=== PATIENT | female | born 1940 | race Caucasian/White ===

== ENCOUNTER → 2017-05-03 | Outpatient (CLI) | payer OTHER, MEDICAID ==
[~2017-05-03] MED LIST: ASPI-630 PO; CITA40TA5 PO; DONE10TA7 PO; LEVO75TA PO; OXYB5TAB7 PO; PANT40TA5 PO; TOLT4CAP PO
--- NOTE | 2017-05-03 13:47 | RAD ---
Three-view right shoulder radiographs to include AP and lateral radiographs of the right humerus 05/03/2017 Clinical history: Right shoulder and arm pain post fall earlier today. AP internal and external rotation and transscapular digital radiographs of the right shoulder were obtained. AP and two lateral digital radiographs of the right humerus were obtained. An acute comminuted, transverse fracture of the right humeral neck is seen. The alignment of the fracture fragments is near-anatomic. No additional fracture is seen. No dislocation is noted Impression: An acute comminuted fracture of the right humeral neck.
== END | disposition home or self-care (01) ==
LOC: DXRADRC 12:42
PROVIDERS: ATTEND Physician Assistant
DX: S42.321A Displaced transverse fracture of shaft of humerus, right arm, initial encounter for closed fracture (principal); W19.XXXA Unspecified fall, initial encounter; Y93.89 Activity, other specified; Y92.89 Other specified places as the place of occurrence of the external cause; Y99.8 Other external cause status
CPT/HCPCS: 73030; 73060

== ENCOUNTER 2018-02-12 13:27 | Observation (INO) | payer OTHER, MEDICAID ==
[~2018-02-12] VITALS: Ht 157.5 cm; Wt 54.0 kg
--- NOTE | 2018-02-12 14:03 | EKG ---
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
[2018-02-12 14:21] LABS: BARBITURATES NEG (NEG); BENZODIAZEPINES NEG (NEG); CANNABINOIDS NEG (NEG); COCAINE NEG (NEG); METHADONE NEG (NEG); OPIATES NEG (NEG); PHENCYCLIDINE NEG (NEG)
[2018-02-12 14:22] LABS: AMPHETAMINE/METHAMPHETAMINE NEG (NEG)
[2018-02-12 14:39] LABS: BASO % 1 % (0-3); EOS # 0.2 x10^3/uL (0.0-0.7); EOS % 4 % (0-3); HEMATOCRIT 35.5 % (36.0-47.0); LYMPH # 1.3 x10^3/uL (1.0-4.8); LYMPH % 26 % (24-48); MEAN CORPUSCULAR HEMOGLOBIN 36 pg (25-35); MEAN CORPUSCULAR HGB CONC 34 g/dL (31-37); MEAN CORPUSCULAR VOLUME 106 fL (79-100); MONO # 0.6 x10^3/uL (0.0-1.1); MONO % 11 % (0-9); NEUT # 3.1 x10^3uL (1.8-7.7); NEUT % 59 % (31-73); PLATELET COUNT 322 x10^3/uL (140-400); RED BLOOD COUNT 3.33 x10^6/uL (3.50-5.40); RED CELL DISTRIBUTION WIDTH 13.7 % (11.5-14.5); WHITE BLOOD COUNT 5.2 x10^3/uL (4.0-11.0)
[2018-02-12 14:52] LABS: ALBUMIN 3.8 g/dL (3.4-5.0); CALCIUM 9.1 mg/dL (8.5-10.1); CREATININE 0.9 mg/dL (0.6-1.0); MAGNESIUM 2.2 mg/dL (1.8-2.4); POTASSIUM 3.5 mmol/L (3.5-5.1); TOTAL BILIRUBIN 0.3 mg/dL (0.2-1.0); TOTAL PROTEIN 7.8 g/dL (6.4-8.2)
[2018-02-12 16:12] LABS: BILIRUBIN,URINE NEG (NEG); CLARITY,URINE HAZY; COLOR,URINE YELLOW; GLUCOSE,URINE NEG (NEG); UROBILINOGEN,URINE 0.2 mg/dL (0.2 mg/dL)
[2018-02-12 16:13] LABS: NITRITE,URINE POS (NEG)
[2018-02-12 16:14] LABS: BACTERIA,URINE MANY /HPF (0-FEW); SQUAMOUS EPITHELIAL CELL,UR FEW /LPF
[2018-02-12] MEDS ORDERED: CEPHALEXIN 250 MG CAPSULE PO ONE (16:45)
--- NOTE | 2018-02-12 16:50 | ED.ADGEN ---
Past History Past Medical History: Hypothyroid, TIA, UTI Past Surgical History: Tubal ligation, Other Alcohol Use: None Drug Use: None Adult General Chief Complaint Chief Complaint Medical screening exam for psychiatric admission HPI HPI Patient is a 77-year-old female with history of dementia who presents with HI, SI from PCPs office. Patient has been having symptoms, increased physical activity, working out at the gym. OF harming spouse, no specific plan to kill self. No drugs or alcohol. No recent medication changes. History is limited due to patient's memory loss. Additional history obtained from PCPs office and the patient's spouse.[] Review of Systems Review of Systems Review symptoms as per history of present illness. All other review symptoms are negative. All other systems were reviewed and found to be within normal limits, except as documented in this note. Current Medications Current Medications Current Medications Medications (Trade) Dose Ordered Sig/Kevin Start Time Stop Time Status Last Admin Dose Admin Cephalexin HCl (Keflex) 500 mg 1X ONCE 02/12/18 16:45 02/12/18 16:46 DC 02/12/18 16:59 500 MG Allergies Allergies Allergies Coded Allergies Type Severity Reaction Last Updated Verified No Known Drug Allergies 02/12/18 No Physical Exam Physical Exam Constitutional: Well developed, well nourished, no acute distress, non-toxic appearance. [] HENT: Normocephalic, atraumatic, bilateral external ears normal, oropharynx moist, no oral exudates, nose normal. [] Eyes: PERRLA, EOMI, conjunctiva normal, no discharge. [] Neck: Normal range of motion, no tenderness, supple, no stridor. [] Cardiovascular:Heart rate regular rhythm, no murmur [] Lungs & Thorax: Bilateral breath sounds clear to auscultation [] Abdomen: Bowel sounds normal, soft, no tenderness, no masses, no pulsatile masses. [] Skin: Warm, dry[] Back: No tenderness, no CVA tenderness. [] Extremities: No tenderness, no cyanosis, no clubbing, ROM intact, no edema. [] Neurologic: Alert and oriented person, normal motor function, normal sensory function, no focal deficits noted. [] Psychologic: Affect , positive SI, HI. [] Current Patient Data Vital Signs Vital Signs Date Time Temp Pulse Resp B/P (MAP) Pulse Ox O2 Delivery O2 Flow Rate FiO2 02/12/18 15:51 77 16 160/71 (100) 98 02/12/18 13:55 98.2 Room Air Lab Results Laboratory Tests Test 02/12/18 13:53 02/12/18 14:19 02/12/18 15:47 Urine Opiates Screen Neg (NEG) Urine Methadone Screen Neg (NEG) Urine Barbiturates Neg (NEG) Urine Phencyclidine Screen Neg (NEG) Urine Amphetamine/Methamphetamine Neg (NEG) Urine Benzodiazepines Screen Neg (NEG) Urine Cocaine Screen Neg (NEG) Urine Cannabinoids Screen Neg (NEG) Urine Ethyl Alcohol Neg (NEG) White Blood Count 5.2 x10^3/uL (4.0-11.0) Red Blood Count 3.33 x10^6/uL (3.50-5.40) L Hemoglobin 12.0 g/dL (12.0-15.5) Hematocrit 35.5 % (36.0-47.0) L Mean Corpuscular Volume 106 fL (79-100) H Mean Corpuscular Hemoglobin 36 pg (25-35) H Mean Corpuscular Hemoglobin Concent 34 g/dL (31-37) Red Cell Distribution Width 13.7 % (11.5-14.5) Platelet Count 322 x10^3/uL (140-400) Neutrophils (%) (Auto) 59 % (31-73) Lymphocytes (%) (Auto) 26 % (24-48) Monocytes (%) (Auto) 11 % (0-9) H Eosinophils (%) (Auto) 4 % (0-3) H Basophils (%) (Auto) 1 % (0-3) Neutrophils # (Auto) 3.1 x10^3uL (1.8-7.7) Lymphocytes # (Auto) 1.3 x10^3/uL (1.0-4.8) Monocytes # (Auto) 0.6 x10^3/uL (0.0-1.1) Eosinophils # (Auto) 0.2 x10^3/uL (0.0-0.7) Basophils # (Auto) 0.0 x10^3/uL (0.0-0.2) Sodium Level 141 mmol/L (136-145) Potassium Level 3.5 mmol/L (3.5-5.1) Chloride Level 104 mmol/L (98-107) Carbon Dioxide Level 30 mmol/L (21-32) Anion Gap 7 (6-14) Blood Urea Nitrogen 13 mg/dL (7-20) Creatinine 0.9 mg/dL (0.6-1.0) Estimated GFR (Cockcroft-Gault) 61.0 BUN/Creatinine Ratio 14 (6-20) Glucose Level 104 mg/dL (70-99) H Calcium Level 9.1 mg/dL (8.5-10.1) Magnesium Level 2.2 mg/dL (1.8-2.4) Total Bilirubin 0.3 mg/dL (0.2-1.0) Aspartate Amino Transferase (AST) 19 U/L (15-37) Alanine Aminotransferase (ALT) 24 U/L (14-59) Alkaline Phosphatase 63 U/L (46-116) Total Protein 7.8 g/dL (6.4-8.2) Albumin 3.8 g/dL (3.4-5.0) Albumin/Globulin Ratio 1.0 (1.0-1.7) Ethyl Alcohol Level < 10 mg/dL (0-10) Urine Collection Type Unknown Urine Color Yellow Urine Clarity Hazy Urine pH 6.0 Urine Specific [place] 1.010 Urine Protein Neg (NEG-TRACE) Urine Glucose (UA) Neg mg/dL (NEG) Urine Ketones (Stick) Neg mg/dL (NEG) Urine Blood Small (NEG) Urine Nitrite Pos (NEG) Urine Bilirubin Neg (NEG) Urine Urobilinogen Dipstick 0.2 mg/dL (0.2 mg/dL) Urine Leukocyte Esterase Small (NEG) Urine RBC 1-2 /HPF (0-2) Urine WBC 5-10 /HPF (0-4) Urine Squamous Epithelial Cells Few /LPF Urine Bacteria Many /HPF (0-FEW) EKG EKG [EKG: Reviewed] Radiology/Procedures Radiology/Procedures [] Course & Med Decision Making Course & Med Decision Making Pertinent Labs and Imaging studies reviewed. (See chart for details) [Patient medically cleared. Psych recommendations are for inpatient hospitalization. Disposition pending at time of shift change. [facility] Final Impression Final Impression [1. Medical screening evaluation for psychiatric hold 2. UTI] Dragon Disclaimer Dragon Disclaimer This electronic medical record was generated, in whole or in part, using a voice recognition dictation system. ABHIJIT WELCH DO Feb 12, 2018 16:50
[2018-02-12] MEDS ORDERED: ONDANSETRON PF 4 MG/2 ML VIAL. IV PRN (21:15)
[2018-02-12] MEDS ORDERED: ACETAMINOPHEN 325 MG TABLET PO PRN (21:15)
[2018-02-12 22:15] VITALS: BP 173/79
[2018-02-12] MEDS ORDERED: ATOR10TA60 PO (22:24)
[2018-02-12] MEDS ORDERED: DONE10TA14 PO (22:24)
[2018-02-12] MEDS ORDERED: DONEPEZIL HCL 10 MG TABLET PO SCH (23:00)
[2018-02-12] MEDS ORDERED: ATORVASTATIN CALCIUM 10 MG TABLET. PO SCH (23:00)
[2018-02-13 05:32] VITALS: BP 147/73
[2018-02-13] MEDS ORDERED: LEVOTHYROXINE 75 MCG TABLET PO SCH (07:30)
[2018-02-13 08:01] LABS: BASO % 1 % (0-3); EOS # 0.2 x10^3/uL (0.0-0.7); EOS % 4 % (0-3); HEMATOCRIT 33.9 % (36.0-47.0); HEMOGLOBIN 11.5 g/dL (12.0-15.5); LYMPH # 1.5 x10^3/uL (1.0-4.8); LYMPH % 33 % (24-48); MEAN CORPUSCULAR HEMOGLOBIN 36 pg (25-35); MEAN CORPUSCULAR HGB CONC 34 g/dL (31-37); MEAN CORPUSCULAR VOLUME 105 fL (79-100); MONO # 0.6 x10^3/uL (0.0-1.1); MONO % 13 % (0-9); NEUT # 2.2 x10^3uL (1.8-7.7); NEUT % 49 % (31-73); PLATELET COUNT 320 x10^3/uL (140-400); RED BLOOD COUNT 3.23 x10^6/uL (3.50-5.40); RED CELL DISTRIBUTION WIDTH 13.7 % (11.5-14.5); WHITE BLOOD COUNT 4.6 x10^3/uL (4.0-11.0)
[2018-02-13 08:11] LABS: CALCIUM 8.9 mg/dL (8.5-10.1); CREATININE 0.8 mg/dL (0.6-1.0); GFR 69.9; POTASSIUM 4.5 mmol/L (3.5-5.1)
[2018-02-13] MEDS: CEPHALEXIN 250 MG CAPSULE PO SCH ×2 (08:54→14:34)
[2018-02-13] MEDS: OXYBUTYNIN CHLORIDE 5 MG TABLET PO SCH ×2 (08:54→14:34)
[2018-02-13] MEDS ORDERED: LACTOBACILLUS RHAMNOSUS GG 1 CAPSULE. PO SCH (09:00)
[2018-02-13] MEDS ORDERED: ASPIRIN 81 MG TAB.CHEW PO SCH (09:00)
--- NOTE | 2018-02-13 11:13 | PDOC ---
Exam Note: Nawaf Note: Please also refer to the separate dictated note~for this date of service dictated separately.~Patient seen individually. Discussed the patient with Nursing staff reviewed the chart.~Reviewed interim history and current functioning. Reviewed vital signs,~Labs/ Radiology~and current medications noted below. Continue current treatment with the changes noted in the dictated addendum note Assessment: Vital Signs: Vital Signs Date Time Temp Pulse Resp B/P (MAP) Pulse Ox O2 Delivery O2 Flow Rate FiO2 02/13/18 05:32 97.8 80 18 147/73 (97) 98 Room Air I&O Intake and Output 02/13/18 07:00 Intake Total 280 ml Balance 280 ml Intake Oral 280 ml # Voids 2 Labs: Laboratory Tests Test 02/12/18 13:53 02/12/18 14:19 02/12/18 15:47 02/13/18 07:50 Urine Opiates Screen Neg (NEG) Urine Methadone Screen Neg (NEG) Urine Barbiturates Neg (NEG) Urine Phencyclidine Screen Neg (NEG) Urine Amphetamine/Methamphetamine Neg (NEG) Urine Benzodiazepines Screen Neg (NEG) Urine Cocaine Screen Neg (NEG) Urine Cannabinoids Screen Neg (NEG) Urine Ethyl Alcohol Neg (NEG) White Blood Count 5.2 x10^3/uL (4.0-11.0) 4.6 x10^3/uL (4.0-11.0) Red Blood Count 3.33 x10^6/uL (3.50-5.40) L 3.23 x10^6/uL (3.50-5.40) L Hemoglobin 12.0 g/dL (12.0-15.5) 11.5 g/dL (12.0-15.5) L Hematocrit 35.5 % (36.0-47.0) L 33.9 % (36.0-47.0) L Mean Corpuscular Volume 106 fL (79-100) H 105 fL (79-100) H Mean Corpuscular Hemoglobin 36 pg (25-35) H 36 pg (25-35) H Mean Corpuscular Hemoglobin Concent 34 g/dL (31-37) 34 g/dL (31-37) Red Cell Distribution Width 13.7 % (11.5-14.5) 13.7 % (11.5-14.5) Platelet Count 322 x10^3/uL (140-400) 320 x10^3/uL (140-400) Neutrophils (%) (Auto) 59 % (31-73) 49 % (31-73) Lymphocytes (%) (Auto) 26 % (24-48) 33 % (24-48) Monocytes (%) (Auto) 11 % (0-9) H 13 % (0-9) H Eosinophils (%) (Auto) 4 % (0-3) H 4 % (0-3) H Basophils (%) (Auto) 1 % (0-3) 1 % (0-3) Neutrophils # (Auto) 3.1 x10^3uL (1.8-7.7) 2.2 x10^3uL (1.8-7.7) Lymphocytes # (Auto) 1.3 x10^3/uL (1.0-4.8) 1.5 x10^3/uL (1.0-4.8) Monocytes # (Auto) 0.6 x10^3/uL (0.0-1.1) 0.6 x10^3/uL (0.0-1.1) Eosinophils # (Auto) 0.2 x10^3/uL (0.0-0.7) 0.2 x10^3/uL (0.0-0.7) Basophils # (Auto) 0.0 x10^3/uL (0.0-0.2) 0.0 x10^3/uL (0.0-0.2) Sodium Level 141 mmol/L (136-145) 143 mmol/L (136-145) Potassium Level 3.5 mmol/L (3.5-5.1) 4.5 mmol/L (3.5-5.1) Chloride Level 104 mmol/L (98-107) 106 mmol/L (98-107) Carbon Dioxide Level 30 mmol/L (21-32) 28 mmol/L (21-32) Anion Gap 7 (6-14) 9 (6-14) Blood Urea Nitrogen 13 mg/dL (7-20) 12 mg/dL (7-20) Creatinine 0.9 mg/dL (0.6-1.0) 0.8 mg/dL (0.6-1.0) Estimated GFR (Cockcroft-Gault) 61.0 69.9 BUN/Creatinine Ratio 14 (6-20) Glucose Level 104 mg/dL (70-99) H 90 mg/dL (70-99) Calcium Level 9.1 mg/dL (8.5-10.1) 8.9 mg/dL (8.5-10.1) Magnesium Level 2.2 mg/dL (1.8-2.4) Total Bilirubin 0.3 mg/dL (0.2-1.0) Aspartate Amino Transferase (AST) 19 U/L (15-37) Alanine Aminotransferase (ALT) 24 U/L (14-59) Alkaline Phosphatase 63 U/L (46-116) Total Protein 7.8 g/dL (6.4-8.2) Albumin 3.8 g/dL (3.4-5.0) Albumin/Globulin Ratio 1.0 (1.0-1.7) Ethyl Alcohol Level < 10 mg/dL (0-10) Urine Collection Type Unknown Urine Color Yellow Urine Clarity Hazy Urine pH 6.0 Urine Specific [place] 1.010 Urine Protein Neg (NEG-TRACE) Urine Glucose (UA) Neg mg/dL (NEG) Urine Ketones (Stick) Neg mg/dL (NEG) Urine Blood Small (NEG) Urine Nitrite Pos (NEG) Urine Bilirubin Neg (NEG) Urine Urobilinogen Dipstick 0.2 mg/dL (0.2 mg/dL) Urine Leukocyte Esterase Small (NEG) Urine RBC 1-2 /HPF (0-2) Urine WBC 5-10 /HPF (0-4) Urine Squamous Epithelial Cells Few /LPF Urine Bacteria Many /HPF (0-FEW) Current Medications: Meds: Current Medications Cephalexin HCl (Keflex) 500 mg 1X ONCE PO Last administered on 02/12/18at 16:59 ; Start 02/12/18 at 16:45; Stop 02/12/18 at 16:46; Status DC Ondansetron HCl (Zofran) 4 mg PRN Q4HRS PRN IV NAUSEA/VOMITING; Start 02/12/18 at 21:15; Stop 02/13/18 at 21:14 Acetaminophen (Tylenol) 650 mg PRN Q4HRS PRN PO FEVER; Start 02/12/18 at 21:15 ; Stop 02/13/18 at 21:14 Cephalexin HCl (Keflex) 500 mg TID PO Last administered on 02/13/18 08:54; Start 02/13/18 at 09:00 Lactobacillus Rhamnosus (Culturelle) 1 cap BID PO Last administered on 08:54; Start 02/13/18 at 09:00 Levothyroxine Sodium (Synthroid) 75 mcg DAILYAC PO Last administered on 08:54; Start 02/13/18 at 07:30 Aspirin (Children'S Aspirin) 81 mg DAILY PO Last administered on 02/13/18 08: 54; Start 02/13/18 at 09:00 Atorvastatin Calcium (Lipitor) 10 mg QHS PO Last administered on 02/12/18 23: 25; Start 02/12/18 at 23:00 Donepezil HCl (Aricept) 20 mg QHS PO Last administered on 02/12/18 23:25; Start 02/12/18 at 23:00 Oxybutynin Chloride (Ditropan) 5 mg [id number] PO Last administered on 02/13/18 08 :54; Start 02/13/18 at 09:00 Active Scripts Active Reported Atorvastatin Calcium 10 Mg Tablet 10 Mg PO QHS Donepezil Hcl 10 Mg Tab.rapdis 20 Mg PO HS Detrol La (Tolterodine Tartrate) 4 Mg Cap.er.24h 4 Mg PO DAILY Aspirin 81 Mg Tab.chew 81 Mg PO DAILY Synthroid (Levothyroxine Sodium) 75 Mcg Tablet 75 Mcg PO DAILYAC I have reviewed the current psychotropics carefully including drug interactions. Risk benefit ratio favors no change other than as noted in my dictated progress note. Diagnosis: Problems: (1) Anxiety disorder (2) Dementia, vascular, with delusions (3) Dementia, vascular, with depression (4) Dementia in Alzheimer's disease with delusions (5) Dementia in Alzheimer's disease with depression (6) Impulse control disorder (7) Homicidal ideation (8) Suicidal ideation (9) UTI (urinary tract infection) SANTO GREGORY MD Feb 13, 2018 11:12
[2018-02-13 11:44] VITALS: BP 133/75
[2018-02-13] MEDS ORDERED: CEPH-264 PO (15:27)
--- NOTE | 2018-02-13 16:03 | SSS ---
ADMIT DATE: 02/13/2018 HISTORY OF PRESENT ILLNESS SKIN: The patient is a 77-year-old female patient with history of dementia, who presented with homicidal ideation, suicidal ideation from primary care physician's office. The patient has been having symptoms, increased physical activity, working out at the gym. No specific plan to kill self. No drug or alcohol. No recent medication changes. History is limited due to the patient's memory loss. Additional history from primary care physician was obtained and her daughter. PAST MEDICAL HISTORY: Significant for dementia, hyperlipidemia, hypothyroidism, and overactive bladder. PAST SURGICAL HISTORY: Unremarkable. SOCIAL HISTORY: She lives with her . Apparently, they are not getting along according to her daughter. She does not smoke, drink alcohol, or use any recreational drugs. ALLERGIES: She has no known drug allergies. MEDICATIONS: She is currently on following medications: She is on Aricept 20 mg at bedtime, atorvastatin calcium 10 mg at bedtime, aspirin 81 mg daily, levothyroxine sodium 75 mcg once a day, and Detrol LA 4 mg p.o. daily. PHYSICAL EXAMINATION: GENERAL: On arrival to the Emergency Room, the patient looked well and was clearly in no apparent respiratory distress, pale, but no jaundice, cyanosis, or thyromegaly. No jugular venous distention. No limb edema. VITAL SIGNS: Her heart rate was 86, blood pressure was 160/71, temperature was 98.2, respiratory rate was 16, and oxygen saturation was 95% on room air. HEAD, EYES, EARS, NOSE, AND THROAT: Normocephalic, atraumatic. NECK: Supple. HEART: Showed normal first and second heart sounds. No gallop, rub, or murmur. CHEST: Clear to auscultation. No crepitation or rhonchi. ABDOMEN: Scaphoid, soft, nontender. NEUROLOGIC: She is demented, but without any obvious lateralizing sign. All cranial nerves intact. EXTREMITIES: She moves extremities without difficulty. She ambulates without assistance or assistive devices. She was seen in the Emergency Room. LABORATORY DATA: Her lab work showed a white cell count of 5200, hemoglobin 12, hematocrit 36, MCV 106, and platelet count of 322,000. Her serum sodium was 141, potassium 3.5, chloride 104, bicarbonate 30, anion gap of 7, BUN 13, creatinine 0.9. Estimated GFR was 61 mL per minute. Her glucose was 104, calcium was 9.1, magnesium 2.2. Total bilirubin, AST, ALT, alkaline phosphatase were normal. Total protein was 7.8, albumin was 3.8. TSH was 0.130. Her white cell count was 5200, hemoglobin 12, hematocrit 36, MCV 106, and platelet count of 322,000. Urinalysis showed the urine was yellow, hazy with a pH of 6, specific gravity of 1.010. The urine was negative for protein, glucose, ketones. There was small amount of blood. Positive for nitrite and leukocyte esterase with 5-10 wbc's and many bacteria. Her tox screen was negative. ASSESSMENT AND PLAN: The patient basically was admitted for placement. She could not be taken to the [facility] because of her insurance and she is refusing to go voluntarily to any other inpatient psych unit, and therefore, a decision was made to discharge her to go to [facility] for further evaluation and treatment. FINAL DISCHARGE DIAGNOSES: Suicidal and homicidal ideation. Other medical problems include hyperlipidemia, hypothyroidism, overactive bladder, dementia, and urinary tract infection. Her TSH is low. She is only on 75 mcg and she probably needs to cut that down to accept 15 and follow with her primary care physician. JUAN LEACH MD DR: BLANCHE/waldemar JOB#: [id number] / [id number]
[2018-02-13 16:16] VITALS: BP 129/74
--- NOTE | 2018-02-14 23:29 | CONS ---
DATE OF CONSULTATION: 02/13/2018 PSYCHIATRIC CONSULTATION This is a late entry 02/13/2018 covers elements not covered in my initial note 02/13/2018. IDENTIFYING DATA: The patient is a 77-year-old female seen on [address] [place] [address] for a psychiatric consult requested by Dr. Greenfield on account of "newly diagnosed dementia taking Aricept. Seen by PCP yesterday for physical and became agitated and paranoid, made suicidal and homicidal statements about killing her and herself with rat poisoning. Family reports she has been increasingly confused and un-redirectable." CHIEF COMPLAINT: "I need to get out of here. I need to go home." HISTORY OF PRESENT ILLNESS: The patient has been admitted with a UTI after she saw her primary care physician. She has been extremely agitated, paranoid with marked mood lability, making threats of wanting to hurt herself and her . Apparently in the past because of her memory deficits, her family had revoked her license but she went back and applied and got another license and still drives. The patient minimizes her memory deficits as she has been increasingly somewhat manic, psychotic. She has had some sleep and appetite changes. PAST PSYCHIATRIC HISTORY: As observed by the family. She has had increasing short term memory deficits, confusion, erratic behaviors, paranoia. MEDICAL HISTORY: Positive for UTI, urinary incontinence, and hyperlipidemia. ALLERGIES: Negative. FAMILY HISTORY: Noncontributory. CURRENT PSYCHOTROPICS: Aricept 20 mg a day. SOCIAL HISTORY: The patient lives at home with her . 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 No alcohol or drug abuse history. MENTAL STATUS EXAMINATION: The patient was seen individually morning of 02/13/2018. She is being transferred from [address] [place] [address] to the senior care care unit that the doors can be shot to keep since she was wandering outside, oblivious of any risk to herself. Speech is coherent, rapid at times. Abstraction fair, computation impaired. She denied active suicidal or homicidal ideations, but mood remains quite labile, somewhat paranoid. She refuses to accept any psychotropics. IMPRESSION: Major neurocognitive disorder, early Alzheimer, vascular with depression, delusions, delirium secondary to urinary tract infection. Rest diagnoses as above. PLAN: I have encouraged the patient to stay in the hospital to complete her treatment for UTI and since the resolution of the UTI should help resolve some of her mood lability and paranoia as well. At this time, she is insistent on being discharged. I will defer to Dr. Greenfield, but at the very least, she should walk [facility] for emergency walk and evaluation, and outpatient psychiatric followup if she does leave the hospital prematurely. Would also recommend she not drive. Dr. Greenfield, thank you for the opportunity to participate in your patient's care. MAN Neeraj GREGORY MD DR: ALENA/waldemar JOB#: [id number] / [id number]
== END 2018-02-13 17:11 | disposition home or self-care (01) ==
LOC: ER 13:27 → 1 SOUTH 20:55 → INTOOBSV 20:55
PROVIDERS: ADMIT Internal Medicine; ATTEND Internal Medicine
DX: R45.851 Suicidal ideations (principal); E03.9 Hypothyroidism, unspecified; E78.5 Hyperlipidemia, unspecified; F02.80 Dementia in other diseases classified elsewhere, unspecified severity, without behavioral disturbance, psychotic disturbance, mood disturbance, and anxiety; F32.9 Major depressive disorder, single episode, unspecified; F41.9 Anxiety disorder, unspecified; F01.50 Vascular dementia, unspecified severity, without behavioral disturbance, psychotic disturbance, mood disturbance, and anxiety; N32.81 Overactive bladder; N39.0 Urinary tract infection, site not specified; Z86.73 Personal history of transient ischemic attack (TIA), and cerebral infarction without residual deficits
CPT/HCPCS: 36415; 80048; 80053; 80307; 81001; 83735; 84443; 85025; 93005; 99285; G0378; G0480; G0379; G0479

== ENCOUNTER 2018-08-06 22:51 | Observation (INO) | payer OTHER, MEDICAID ==
[~2018-08-06] VITALS: Ht 160 cm; Wt 56.2 kg
[~2018-08-06 22:51] MED LIST changes: +ATOR10TA60 PO; +CEPH-264 PO; +DONE10TA14 PO
[2018-08-06] MEDS ORDERED: IV NORMAL SALINE 500ML 500 ML IV ONE (23:15)
[2018-08-06 23:30] LABS: BASO # 0.1 x10^3/uL (0.0-0.2); BASO % 1 % (0-3); EOS # 0.3 x10^3/uL (0.0-0.7); EOS % 6 % (0-3); HEMATOCRIT 35.8 % (36.0-47.0); HEMOGLOBIN 11.9 g/dL (12.0-15.5); LYMPH # 1.7 x10^3/uL (1.0-4.8); LYMPH % 30 % (24-48); MEAN CORPUSCULAR HEMOGLOBIN 35 pg (25-35); MEAN CORPUSCULAR HGB CONC 33 g/dL (31-37); MEAN CORPUSCULAR VOLUME 105 fL (79-100); MONO # 0.7 x10^3/uL (0.0-1.1); MONO % 12 % (0-9); NEUT # 2.9 x10^3uL (1.8-7.7); NEUT % 52 % (31-73); PLATELET COUNT 320 x10^3/uL (140-400); RED BLOOD COUNT 3.41 x10^6/uL (3.50-5.40); WHITE BLOOD COUNT 5.7 x10^3/uL (4.0-11.0)
[2018-08-06 23:39] LABS: CALCIUM 9.1 mg/dL (8.5-10.1); GFR 53.9
[2018-08-06 23:41] LABS: POTASSIUM 3.5 mmol/L (3.5-5.1)
--- NOTE | 2018-08-06 23:58 | RAD ---
PQRS Compliance statement: One or more of the following individualized dose reduction techniques were utilized for this examination: 1. Automated exposure control. 2. Adjustment of the mA and/or kV according to patient size. 3. Use of iterative reconstruction technique. Indication:Syncopal episode today, headache TECHNIQUE: CT head without IV contrast COMPARISON: 10/25/2005 FINDINGS: No pathologic extra-axial or intra-axial fluid collection. The ventricles and basal cisterns are within normal limits. Stable bilateral basal ganglia calcifications are seen. Confluent low-attenuation is seen in the periventricular and deep white matter. Small focus of high attenuation is seen in the left parietal lobe (series 2 image 22). No focal loss of spencer-white differentiation. Orbits are within normal limits. No suspicious calvarial lesion. Visualized paranasal sinuses and mastoid air cells are clear. IMPRESSION: 1. 3 mm small focus of high attenuation in the left parietal lobe likely artifactual or calcification, less likely punctate hemorrhage. Follow-up CT head in 6 hours can be obtained if clinically needed.. 2. Moderate White matter changes mostly secondary to chronic microvascular ischemic disease. Electronically signed by: Al Phillips DO (08/06/2018 11:54 PM) [facility]
[2018-08-07] VITALS (9 sets, daily range): BP systolic 109–178; BP diastolic 54–79
--- NOTE | 2018-08-07 00:20 | PHYS DOC ---
Adult General Chief Complaint Chief Complaint Syncope HPI HPI This is a very pleasant 78 years old female with multiple medical problem presented to the emergency department with syncopal episode stated that she was in the kitchen and suddenly felt dizzy and had a syncopal episode witnessed by her family patient stated that this happened in the past multiple times she did not have any workup for it. Patient denies any chest pain no shortness breath no abdominal pain no diarrhea and urgency no frequency no hematuria Review of Systems Review of Systems Constitutional: Denies fever or chills [] Eyes: Denies change in visual acuity, redness, or eye pain [] HENT: Denies nasal congestion or sore throat [] Respiratory: Denies cough or shortness of breath [] Cardiovascular: No additional information not addressed in HPI [] GI: Denies abdominal pain, nausea, vomiting, bloody stools or diarrhea [] : Denies dysuria or hematuria [] Musculoskeletal: Denies back pain or joint pain [] Integument: Denies rash or skin lesions [] Neurologic: Denies headache, focal weakness or sensory changes [] Endocrine: Denies polyuria or polydipsia [] All other systems were reviewed and found to be within normal limits, except as documented in this note. Current Medications Current Medications Current Medications Medications (Trade) Dose Ordered Sig/Kevin Start Time Stop Time Status Last Admin Dose Admin Sodium Chloride 500 ml @ 0 mls/hr 1X ONCE 08/06/18 23:15 08/06/18 23:16 DC 08/07/18 00:15 500 MLS/HR Allergies Allergies Allergies Coded Allergies Type Severity Reaction Last Updated Verified No Known Drug Allergies 02/12/18 No Physical Exam Physical Exam Constitutional: Well developed, well nourished, no acute distress, non-toxic appearance. [] HENT: Normocephalic, atraumatic, bilateral external ears normal, oropharynx moist, no oral exudates, nose normal. [] Eyes: PERRLA, EOMI, conjunctiva normal, no discharge. [] Neck: Normal range of motion, no tenderness, supple, no stridor. [] Cardiovascular:Heart rate regular rhythm, no murmur [] Lungs & Thorax: Bilateral breath sounds clear to auscultation [] Abdomen: Bowel sounds normal, soft, no tenderness, no masses, no pulsatile masses. [] Skin: Warm, dry, no erythema, no rash. [] Back: No tenderness, no CVA tenderness. [] Extremities: No tenderness, no cyanosis, no clubbing, ROM intact, no edema. [] Neurologic: Alert and oriented X 3, normal motor function, normal sensory function, no focal deficits noted. [] Psychologic: Affect normal, judgement normal, mood normal. [] Current Patient Data Vital Signs Vital Signs Date Time Temp Pulse Resp B/P (MAP) Pulse Ox O2 Delivery O2 Flow Rate FiO2 08/06/18 22:51 97.9 64 14 97 Room Air Lab Results Laboratory Tests Test 08/06/18 23:19 White Blood Count 5.7 x10^3/uL (4.0-11.0) Red Blood Count 3.41 x10^6/uL (3.50-5.40) L Hemoglobin 11.9 g/dL (12.0-15.5) L Hematocrit 35.8 % (36.0-47.0) L Mean Corpuscular Volume 105 fL (79-100) H Mean Corpuscular Hemoglobin 35 pg (25-35) Mean Corpuscular Hemoglobin Concent 33 g/dL (31-37) Red Cell Distribution Width 14.0 % (11.5-14.5) Platelet Count 320 x10^3/uL (140-400) Neutrophils (%) (Auto) 52 % (31-73) Lymphocytes (%) (Auto) 30 % (24-48) Monocytes (%) (Auto) 12 % (0-9) H Eosinophils (%) (Auto) 6 % (0-3) H Basophils (%) (Auto) 1 % (0-3) Neutrophils # (Auto) 2.9 x10^3uL (1.8-7.7) Lymphocytes # (Auto) 1.7 x10^3/uL (1.0-4.8) Monocytes # (Auto) 0.7 x10^3/uL (0.0-1.1) Eosinophils # (Auto) 0.3 x10^3/uL (0.0-0.7) Basophils # (Auto) 0.1 x10^3/uL (0.0-0.2) D-Dimer (Luzmaria) 0.64 mg/L (0.00-0.50) H Sodium Level 141 mmol/L (136-145) Potassium Level 3.5 mmol/L (3.5-5.1) Chloride Level 103 mmol/L (98-107) Carbon Dioxide Level 28 mmol/L (21-32) Anion Gap 10 (6-14) Blood Urea Nitrogen 22 mg/dL (7-20) H Creatinine 1.0 mg/dL (0.6-1.0) Estimated GFR (Cockcroft-Gault) 53.9 Glucose Level 135 mg/dL (70-99) H Calcium Level 9.1 mg/dL (8.5-10.1) Troponin I Quantitative < 0.017 ng/mL (0-0.055) EKG EKG Sinus rhythm Radiology/Procedures Radiology/Procedures [] Course & Med Decision Making Course & Med Decision Making Pertinent Labs and Imaging studies reviewed. (See chart for details) [] Final Impression Final Impression Patient will be admitted to medicine service for syncope workup She'll be on telemetry bed [] Problems: (1) Syncope Qualifiers: Qualified Codes: R55 - Syncope and collapse Dragon Disclaimer Dragon Disclaimer This electronic medical record was generated, in whole or in part, using a voice recognition dictation system. DAYTON OSHEA MD Aug 07, 2018 00:20
[2018-08-07] MEDS ORDERED: ONDANSETRON PF 4 MG/2 ML VIAL. IV PRN (00:30)
--- NOTE | 2018-08-07 03:20 | EKG ---
[address] [address] Test Date: 2018-08-06 Test Time: 23:04:28 Pat Name: MARBIN GUTIERREZ Department: Room: 109 A Gender: F Legal Activity Adjudicator: : 1940 Requested By: DAYTON OSHEA Order Number: [id number] Reading MD: Sachin Weber Measurements Intervals [place] Rate: 64 P: 42 NE: 156 QRS: 26 QRSD: 78 T: 39 QT: 412 QTc: 429 Interpretive Statements SINUS RHYTHM ATRIAL PREMATURE COMPLEX(ES) Electronically Signed On 08-13-2018 11:05:44 [employer] by Sachin Weber
[2018-08-07] MEDS ORDERED: ASPIRIN 81 MG TAB.CHEW PO SCH (08:00)
[2018-08-07] MEDS: OXYBUTYNIN CHLORIDE 5 MG TABLET PO SCH ×3 (08:30→21:06)
[2018-08-07] MEDS: LEVOTHYROXINE 75 MCG TABLET PO SCH (08:30)
--- NOTE | 2018-08-07 10:09 | PDOC2 ---
CONSULT Date of Admission DATE: 08/07/18 TIME: 10:05 Reason for Consult: syncope History of Present Illness Ms Aranda is a 78 year old female who presents with complaints of syncope. She reports standing at the sink washing dishes when she passed out and woke on the floor with her attempting to help her up. She has no clear memory of falling. She is unsure if she lost control of bowel or bladder but does state her pants were wet. She thinks this may have been from sink water. She denies any bite of tongue. Apparently her heard her fall and immediately came to help her. She says there was no reported seizure like activity. She apparently initially reported preceding lightheadedness however now denies any preceding symptoms. She reports prior TIAs and believes this was "another one". TIAs have previously been associated with speech abnormalities and weakness. She does reports prior syncope but is unable to elaborate. She is a fairly poor historian and repeats details frequently. She denies chest pain, dyspnea, palpitations, congestive symptoms. She denies any prior lightheadedness. She denies any prior cardiac issues. Cardiovascular: syncope, hyperipidemia Pulmonary: Pulmonary embolus (and DVT ) CENTRAL NERVOUS SYSTEM: Dementia (newly diagnosed), TIA GI: GERD Psych: Depression, Other (affective disorder, prior SI and homicidal ideation) Musculoskeletal: Osteoarthritis Renal/: UTI Endocrine: Hypothyroidism Past Surgical History nose surgery Family History She denies any significant family history of coronary disease Social History she denies smoking, significant ETOH, or illicit drugs Current Medications Current Medications Sodium Chloride 500 ml @ 0 mls/hr 1X ONCE IV Last administered on 08/07/18at 00 :15; Start 08/06/18 at 23:15; Stop 08/06/18 at 23:16; Status DC Ondansetron HCl (Zofran) 4 mg PRN Q4HRS PRN IV NAUSEA/VOMITING; Start 08/07/18 at 00:30; Stop 08/08/18 at 00:29 Levothyroxine Sodium (Synthroid) 75 mcg DAILYAC PO Last administered on at 08:30; Start 08/07/18 at 07:30 Aspirin (Children'S Aspirin) 81 mg DAILYWBKFT PO Last administered on at 08:30; Start 08/07/18 at 08:00 Atorvastatin Calcium (Lipitor) 10 mg QHS PO ; Start 08/07/18 at 21:00 Donepezil HCl (Aricept) 20 mg QHS PO ; Start 08/07/18 at 21:00 Oxybutynin Chloride (Ditropan) 5 mg [id number] PO Last administered on 08/07/18at 08 :30; Start 08/07/18 at 09:00 Active Scripts Active Reported Atorvastatin Calcium 10 Mg Tablet 10 Mg PO QHS LAST DOSE GIVEN: DATE: YESTERDAY TIME: BEDTIME NEXT DOSE DUE: DATE: TODAY TIME: BEDTIME Donepezil Hcl 10 Mg Tab.rapdis 20 Mg PO HS LAST DOSE GIVEN: DATE: YESTERDAY TIME: BEDTIME NEXT DOSE DUE: DATE: TODAY TIME: BEDTIME Detrol La (Tolterodine Tartrate) 4 Mg Cap.er.24h 4 Mg PO DAILY AUTO-SUBSTITUTED FOR DITROPAN LAST DOSE GIVEN: DATE: TODAY TIME: 2:00 PM NEXT DOSE DUE: DATE: TOMORROW TIME: AM Aspirin 81 Mg Tab.chew 81 Mg PO DAILY LAST DOSE GIVEN: DATE: TODAY TIME: AM NEXT DOSE DUE: DATE: TOMORROW TIME: AM Synthroid (Levothyroxine Sodium) 75 Mcg Tablet 75 Mcg PO DAILYAC LAST DOSE GIVEN: DATE: TODAY TIME: AM NEXT DOSE DUE: DATE: TOMORROW TIME: AM Allergies: Coded Allergies: No Known Drug Allergies (Unverified , 02/12/18) Review of System as per HPI or negative General: Alert, Oriented X3, Cooperative, No acute distress, Other (poor short term memory) HEENT: EOMI, Mucous membr. moist/pink Lungs: Other (coarse, no crackles, rhonchi or wheezing) Heart: Normal S1, Normal S2, Other (no gallops, clicks or rubs. ) Abdomen: Normal bowel sounds, Soft, No tenderness Extremities: No cyanosis, No edema, Normal pulses Neuro: Normal speech, Strength at 5/5 X4 ext Psych/Mental Status: Mood NL VITALS Vital Signs Date Time Temp Pulse Resp B/P (MAP) Pulse Ox O2 Delivery O2 Flow Rate FiO2 08/07/18 08:55 Room Air 08/07/18 06:11 76 125/78 (94) 08/07/18 06:10 97.9 18 97 Labs Laboratory Tests Test 12/5/18 23:19 White Blood Count 5.7 x10^3/uL (4.0-11.0) Red Blood Count 3.41 x10^6/uL (3.50-5.40) Hemoglobin 11.9 g/dL (12.0-15.5) Hematocrit 35.8 % (36.0-47.0) Mean Corpuscular Volume 105 fL (79-100) Mean Corpuscular Hemoglobin 35 pg (25-35) Mean Corpuscular Hemoglobin Concent 33 g/dL (31-37) Red Cell Distribution Width 14.0 % (11.5-14.5) Platelet Count 320 x10^3/uL (140-400) Neutrophils (%) (Auto) 52 % (31-73) Lymphocytes (%) (Auto) 30 % (24-48) Monocytes (%) (Auto) 12 % (0-9) Eosinophils (%) (Auto) 6 % (0-3) Basophils (%) (Auto) 1 % (0-3) Neutrophils # (Auto) 2.9 x10^3uL (1.8-7.7) Lymphocytes # (Auto) 1.7 x10^3/uL (1.0-4.8) Monocytes # (Auto) 0.7 x10^3/uL (0.0-1.1) Eosinophils # (Auto) 0.3 x10^3/uL (0.0-0.7) Basophils # (Auto) 0.1 x10^3/uL (0.0-0.2) D-Dimer (Luzmaria) 0.64 mg/L (0.00-0.50) Sodium Level 141 mmol/L (136-145) Potassium Level 3.5 mmol/L (3.5-5.1) Chloride Level 103 mmol/L (98-107) Carbon Dioxide Level 28 mmol/L (21-32) Anion Gap 10 (6-14) Blood Urea Nitrogen 22 mg/dL (7-20) Creatinine 1.0 mg/dL (0.6-1.0) Estimated GFR (Cockcroft-Gault) 53.9 Glucose Level 135 mg/dL (70-99) Calcium Level 9.1 mg/dL (8.5-10.1) Troponin I Quantitative < 0.017 ng/mL (0-0.055) Images EKG - sinus rhythm, PAC, no acute ischemic changes CT head - IMPRESSION: 1. 3 mm small focus of high attenuation in the left parietal lobe likely artifactual or calcification, less likely punctate hemorrhage. Follow-up CT head in 6 hours can be obtained if clinically needed.. 2. Moderate White matter changes mostly secondary to chronic microvascular ischemic disease. Assessment/Plan 1. syncope - orthostatics negative. check echo, tele monitor, home event monitor. carotid sonos. 2. Hx recurrent TIAs - bubble study 3. HTN - await echo, adjust antihypertensives 4. HLD - check lipids 5. abnormal CT head - consider neuro eval and repeat CT as per PCP ALEJANDRO HARRIS APRN Aug 07, 2018 10:09
--- NOTE | 2018-08-07 13:04 | CARD ---
MR#: [id number] Date of Study: 08/07/2018 Ordering Physician: ALEJANDRO HARRIS, Referring Physician: JUAN LEACH Tech: Heather Cartagena STACIA APPROVED REPORT EXAM: Two-dimensional and M-mode echocardiogram with Doppler and color Doppler. Other Information Quality : AverageHR: 58bpm Rhythm : NSR INDICATION Syncope 2D DIMENSIONS RVDd2.9 (2.9-3.5cm)Left Atrium(2D)2.4 (1.6-4.0cm) IVSd1.2 (0.7-1.1cm)Aortic Root(2D)2.9 (2.0-3.7cm) LVDd3.6 (3.9-5.9cm)LVOT Diameter2.0 (1.8-2.4cm) PWd1.0 (0.7-1.1cm)LVDs2.3 (2.5-4.0cm) FS (%) 35.0 %SV35.0 ml LVEF(%)65.3 (>50%) M-Mode DIMENSIONS Left Atrium(MM)2.19 (2.5-4.0cm)Aortic Root3.01 (2.2-3.7cm) Aortic Valve AoV Peak Silver.126.7cm/sAoV VTI25.3cm AO Peak GR.6.4mmHgLVOT Peak Silver.108.0cm/s LVOT VTI 24.39cmAO Mean GR.3mmHg ADRIANA (VMAX)2.34vd6ESS (VTI)2.89cm2 Mitral Valve MV E Sekjroqc70.7cm/sMV DECEL [id number] MV A Sullylxe522.0cm/sE/A Ratio0.7 MV A Szeodmws780ep Pulmonary Valve PV Peak Abedzlya09.1cm/sPV Peak Grad.3mmHg Tricuspid Valve TR P. Eiqjadvl526cv/sRAP RBWQBBJS3hiSp TR Peak Gr.75jmRzCKQL33ndEc Pulmonary Vein S1 Xuzcvvuz30.8cm/sD2 Gyifkjjb18.7cm/s LEFT VENTRICLE The left ventricle cavity is small. There is mild concentric left ventricular hypertrophy. The left v entricular systolic function is normal. The Ejection Fraction is 65-70%. There is normal LV segmental wall motion. Transmitral Doppler flow pattern is Grade I-abnormal relaxation pattern. RIGHT VENTRICLE The right ventricle is normal size. There is normal right ventricular wall thickness. The right ventr icular systolic function is normal. ATRIA The left atrium size is normal. The right atrium size is normal. The interatrial septum is intact wit h no evidence for an atrial septal defect or patent foramen ovale as noted on 2-D or Doppler imaging. Injection of bubbles documented no interatrial shunt. AORTIC VALVE The aortic valve is trileaflet. The aortic valve is normal in structure and function. Doppler and Col or Flow revealed no significant aortic regurgitation. There is no significant aortic valvular stenosi s. MITRAL VALVE The mitral valve is normal in structure and function. There is no evidence of mitral valve prolapse. There is no mitral valve stenosis. Doppler and Color Flow revealed no mitral valve regurgitation note d. TRICUSPID VALVE The tricuspid valve is normal in structure and function. Doppler and Color Flow revealed trace tricus pid regurgitation. The PA pressure was estimated at 23 mmHg. There is no tricuspid valve prolapse or vegetation. There is no tricuspid valve stenosis. PULMONIC VALVE Pulmonic valve not well visualized. GREAT VESSELS The aortic root is normal in size. The ascending aorta is normal in size. The IVC is normal in size a nd collapses >50% with inspiration. PERICARDIAL EFFUSION There is no evidence of significant pericardial effusion. Critical Notification Critical Value: No <Conclusion> The left ventricular systolic function is normal. The Ejection Fraction is 65-70%. There is normal LV segmental wall motion. Transmitral Doppler flow pattern is Grade I-abnormal relaxation pattern. Doppler and Color Flow revealed trace tricuspid regurgitation. The PA pressure was estimated at 23 mmHg. There is no evidence of significant pericardial effusion. Injection of bubbles documented no interatrial shunt. Signed by : Albert Garcia, Electronically Approved : 08/07/2018 13:03:15
--- NOTE | 2018-08-07 13:56 | HP ---
ADMIT DATE: 08/07/2018 HISTORY OF PRESENT ILLNESS: The patient is a 78-year-old female patient who came to the Emergency Room with a complaint of syncopal episodes, which was in the kitchen. Started to clean the dishes and suddenly felt dizzy, had a syncopal episode witnessed by her family. She said that this happened in the past multiple times. She, did not have any workup for it. She claimed that she has multiple seizures before, although has not seen any neurologist. She only sees ____. She stated also that she has lost consciousness momentarily but she became awake and aware of surroundings, was still at home before the ambulance brought her here to the Emergency Room. She denied any chest pain, shortness of breath, palpitation or vertigo. She was seen in the Emergency Room and was extensively investigated. Her EKG showed that she was in sinus rhythm. CT scan of the head without contrast showed that there is a 3 mm small focus of high attenuation in the left parietal lobe, likely artifactual or calcification less likely punctate hemorrhage. Followup CT head in 6 hours can be obtained if clinically needed, has moderate white matter changes mostly secondary to chronic microvascular ischemic disease. The patient was admitted to be monitored closely and to consult the Cardiology and Neurology team. PAST MEDICAL HISTORY: Significant for dementia, hyperlipidemia, hypothyroidism and overactive bladder. PAST SURGICAL HISTORY: Unremarkable. SOCIAL HISTORY: She lives with her , apparently they are not getting along good. According to her daughter, she does not smoke, drink alcohol or recreational drugs. FAMILY HISTORY: Unremarkable. ALLERGIES: She has no known drug allergies. MEDICATIONS: She is currently on following medications: She is on Aricept 20 mg once a day, atorvastatin calcium 10 mg at bedtime, aspirin 81 mg once a day, levothyroxine sodium 75 mcg once a day and Detrol-LA 4 mg once a day. REVIEW OF SYSTEMS: As per history of present illness. PHYSICAL EXAMINATION: GENERAL: On arrival to the Emergency Room, she looked pale, but no jaundice, cyanosis, or thyromegaly. No jugular venous distension. No limb edema. VITAL SIGNS: Heart rate was 63, blood pressure was 132/64, temperature was 97.9, respiratory rate was 14 and oxygen saturation was 97%. HEAD, EYES, EAR, NOSE AND THROAT: Showed normocephalic, atraumatic. NECK: Supple. HEART: Showed normal first and second sounds. No gallop, rub or murmur. CHEST: Clear to auscultation. No crepitation or rhonchi. ABDOMEN: Distended, soft, nontender. No guarding or rigidity. No organomegaly. All hernial orifice intact. Bowel sounds normal. NEUROLOGIC: The patient was alert, oriented with normal motor and sensory function. No focal neurological deficit. LABORATORY DATA: She has had lab work done, which included a CBC with a white cell count 5700, hemoglobin 11.9, hematocrit 36, MCV 105 and platelet count 320,000 with normal manual differential. Her chemistry showed a serum sodium 141, potassium 3.5, chloride 103, bicarbonate 28, anion gap of 10, BUN 22, creatinine 1, estimated GFR was 54 mL per minute. Her glucose 135, calcium was 9.1. Troponin I was less than 0.017. Her D-dimer was slightly elevated at 0.64. She did have a CT scan of the head without contrast, which showed that she has a 3 mm small focus of high attenuation in the left parietal lobe, likely artifactual or calcification. This is likely punctate hemorrhage. Followup CT head in 6 hours can be obtained if clinically needed. Moderate white matter changes mostly secondary to chronic microvascular ischemic disease. ASSESSMENT AND PLAN: The patient was admitted. We will arrange for her to have an echocardiogram and a carotid Doppler ultrasound. We will repeat her CT scan as recommended by the radiologist. Consult the neurologist, Dr. Weaver and decide on further management accordingly. In summary, this is a 78-year-old with a syncopal episode versus seizure disorder. Other medical problems including hyperlipidemia, hypothyroidism, dementia and overactive bladder. JUAN LEACH MD DR: BLANCHE/waldemar JOB#: [id number] / [id number]
--- NOTE | 2018-08-07 15:33 | RAD ---
CT scan of the head without contrast 08/07/2018 Clinical History: Headaches. Syncopal episode. Punctate area of increased attenuation seen within the left parietal lobe on a CT scan of the head from yesterday. Follow-up CT scan was recommended. Technique: Unenhanced, contiguous, 5 mm axial sections were obtained through the head. One or more of the following individualized dose reduction techniques were utilized for this study: 1. Automated exposure control. 2. Adjustment of the mA and/or kV according to patient size. 3. Use of iterative reconstruction technique. Findings: Comparison study is dated 08/06/2018 There is generalized parenchymal atrophy. Areas of decreased attenuation are seen within the periventricular and subcortical white matter of both cerebral hemispheres consistent with areas of small vessel ischemic disease. Calcifications are involving the basal ganglia regions, bilaterally, unchanged. A punctate area of increased attenuation seen in the superior left parietal region which is unchanged from the previous study. This felt to represent an area of calcification. There is no CT evidence of acute intracranial hemorrhage. No acute parenchymal abnormality is seen. No extra-axial fluid collection is noted. No skull fracture is seen. Impression: The punctate area of increased attenuation seen within the left parietal region is felt to represent an area of calcification as outlined above. There is no CT evidence of intracranial hemorrhage. Electronically signed by: Bridger Dodson MD (08/07/2018 3:29 PM) [id number]
--- NOTE | 2018-08-07 15:36 | RAD ---
Clinical indications: Syncope. Duplex sonography of the cervical portion of both carotid arteries was performed including color flow imaging and spectral waveform analysis with flow velocity measurement and spencer scale evaluation. Right side: Peak systolic flow velocity of the CCA is 116 cm/sec. Peak systolic flow velocity of the ICA is 64 cm/sec. Thus, the ICA/CCA ratio is less than 1.0. Peak end diastolic flow velocity of the ICA is 19 cm/sec. The peak systolic velocity of the ECA is 84 cm/sec. Left side: Peak systolic flow velocity of the CCA is 78 cm/sec. Peak systolic flow velocity of the ICA is 114 cm/sec. Thus, the ICA/CCA ratio is 1.5. Peak end diastolic flow velocity of the ICA is 20 cm/sec. Peak systolic flow velocity of the ECA is 133 cm/sec. There is mild plaque formation within the right ICA which is less than 50%. There is more prominent plaque formation within the left ICA and ECA which is also less than 50%. This plaque is calcified. Antegrade vertebral flow is seen bilaterally. The measurements were made using the NASCET criteria. Impression: Mild plaque formation is seen within the carotid bifurcations bilaterally which is less than 50%.. Electronically signed by: Lorenzo Serna MD (08/07/2018 3:32 PM) [id number]
[2018-08-07] MEDS ORDERED: DONEPEZIL HCL 10 MG TABLET PO SCH (21:00)
[2018-08-07] MEDS ORDERED: ATORVASTATIN CALCIUM 10 MG TABLET. PO SCH (21:00)
--- NOTE | 2018-08-08 05:16 | CONS ---
DATE OF CONSULTATION: 08/07/2018 NEUROLOGICAL CONSULTATION REFERRING PHYSICIAN: Dong Greenfield MD REASON FOR CONSULTATION: Rule out syncope versus seizure. HISTORY OF PRESENT ILLNESS: This is a 78-year-old right-handed female, who was admitted to Emergency Room after she presented with chief complaint of possible syncopal attack. According to the patient, she was standing in the kitchen, doing her dishes, all of a sudden she felt dizzy and she fell to the floor. She remembers falling to the floor. She stayed on the floor for a short period and she apparently lost her consciousness for approximately 1-2 minutes. The spell was witnessed by her grandchild. No further information about her spell, whether she had convulsions or not. The patient did not recall that; however, she was confused after the fall for approximately 10 minutes before she regained her consciousness. EMS was activated and found the patient is alert and oriented. She was brought to Emergency Room for further evaluation where initial nonenhanced head CT scan revealed evidence of chronic small vessel ischemic changes and a possible calcification over the left parietal region. Currently, the patient denies headaches, visual disturbances, nausea, vomiting, chest pain, shortness of breath or palpitations. She had similar episode in the past few months ago. She was evaluated at [facility] 7 months ago and she had what apparently to be EEG, which was normal according to her daughter. The patient described episodes of feeling numbness and tingling, then she lays down in bed to prevent having a seizure or falls. She had similar episodes in the past and she described it as possible mini stroke. PAST MEDICAL HISTORY: Significant for hyperlipidemia, hypothyroidism, early dementia, and overactive bladder. PAST SURGICAL HISTORY: Negative. SOCIAL HISTORY: The patient lives with her . She was a former smoker, but currently she denies smoking, alcohol drinking, or illicit drug use. FAMILY HISTORY: Noncontributory. CURRENT HOME MEDICATIONS: Baby aspirin 81 mg daily, Aricept, Lipitor 10 mg daily, levothyroxine 75 mcg once daily, Detrol LA 4 mg daily. ALLERGIES: No known drug allergies. REVIEW OF SYSTEMS: A 10-point review of system was performed and as mentioned above in history of present illness consistent with recurrent syncopal episode as described above. PHYSICAL EXAMINATION: GENERAL: Well-developed, well-nourished female, not in acute distress. VITAL SIGNS: Blood pressure 133/74, respiratory rate 20, pulse is 60, and temperature 97.6, oxygen saturation is 98% on room air. HEENT: Normocephalic, atraumatic, otherwise unremarkable. NECK: Supple. Negative for carotid bruit, lymphadenopathy or thyromegaly. LUNGS: Clear to A and P. CARDIOVASCULAR: Regular rhythm, normal S1, S2. There is no S3, S4 or murmur. ABDOMEN: Soft. Bowel sounds positive. EXTREMITIES: Negative for cyanosis, clubbing or pitting edema. NEUROLOGIC: Mental status: The patient is alert and oriented x 3. The speech is fluent. There is no language dysfunction. Memory, judgment, and abstract thinking are fair. The patient denies hallucination or delusion. CRANIAL NERVES: Visual ellison are full. The pupils are reactive to light and accommodation. The extraocular movements are intact. There is no nystagmus. There is no facial motor or sensory deficit. Hearing is intact bilaterally. The palate is elevated symmetrically. Sternocleidomastoid muscles are powerful bilaterally. The patient shrugs her shoulders symmetrically and protrudes her tongue in the midline without fasciculation or atrophy. MOTOR: No focal muscle bulk was seen. The tone is normal. The strength is 4/5 throughout. Sensory examination revealed normal pinprick and light touch senses throughout. Deep tendon reflexes were symmetric and hypoactive with absent Achilles responses. GAIT: The patient walks without assistance; however, tandem gait is difficult and Romberg sign is positive. LABORATORY DATA: CBC revealed white blood cells of 5.7 thousand, hemoglobin 11.9, hematocrit 35.8, platelet count 328,000. Chemistry revealed sodium of 141, potassium 3.5, chloride 103, CO2 of 28, BUN 22, creatinine 1, glucose 135, calcium 9.1. Lipid profile is normal with elevated HDL at 80. Coagulation revealed D-dimer elevation at 0.64. DIAGNOSTIC DATA: Repeated head CT scan today revealed no evidence of acute intracranial process, but consistent with chronic small vessel ischemic changes and possible calcifications in the left parietal region. Echocardiogram revealed a normal left ventricle systolic function with ejection fraction between 65-70%. Carotid Doppler study from today revealed a mild plaque formation with estimate stenosis less than 50%. IMPRESSION: 1. Recurrent syncopal episode and probably less likely seizure. However, other possibility includes orthostatic hypertensions, paroxysmal cardiac arrhythmias, dehydration versus transient ischemic attack. 2. Multiple medical problems include possible early dementia, hyperlipidemia and hypothyroidism. RECOMMENDATIONS: 1. We will increase aspirin to 162 mg p.o. daily. 2. We will arrange for a prolonged video monitoring EEG to be done on outpatient basis. M Cara JAVED MD DR: JOE/waldemar JOB#: [id number] / [id number]
[2018-08-08 05:19] VITALS: BP 108/65
[2018-08-08 07:02] LABS: ALBUMIN 3.2 g/dL (3.4-5.0); ALBUMIN/GLOBULIN RATIO 0.8 (1.0-1.7); CALCIUM 8.7 mg/dL (8.5-10.1); CREATININE 0.9 mg/dL (0.6-1.0); GFR 60.9; TOTAL BILIRUBIN 0.2 mg/dL (0.2-1.0); TOTAL PROTEIN 7.1 g/dL (6.4-8.2)
[2018-08-08] MEDS: LEVOTHYROXINE 75 MCG TABLET PO SCH (07:33)
[2018-08-08] MEDS ORDERED: ASPIRIN 81 MG TAB.CHEW PO SCH (08:00)
[2018-08-08] MEDS: OXYBUTYNIN CHLORIDE 5 MG TABLET PO SCH (08:19)
--- NOTE | 2018-08-08 10:05 | PDOC ---
ALEJANDRO HARRIS CLUB WAITER/WAITRESS 08/08/18 1005: PROGRESS NOTES Assessment 1. syncope - orthostatics negative. no new syncope. no significant arrhythmias on tele. suggest outpatient event monitoring. 2. Hx recurrent TIAs - bubble study negative. 3. HTNHD - mild LVH and diastolic dysfunction by echo with normal LVEF, blood pressure currently low normal. Monitor as outpatient and add ACEI if tolerated. 4. HLD - continue statin Neuro evaluated and outpatient EEG planned. Suggest outpatient event monitor and follow up and consider MPI. Re-evaluate blood pressure outpatient and consider medical therapy for diastolic dysfunction. Subjective no chest pain, dyspnea, palpitations, lightheadedness or recurrent presyncope or syncope Objective Vital Signs Date Time Temp Pulse Resp B/P (MAP) Pulse Ox O2 Delivery O2 Flow Rate FiO2 08/08/18 08:00 Room Air 08/08/18 05:19 97.6 63 18 108/65 (79) 97 Intake and Output 08/08/18 07:00 Intake Total 1200 ml Balance 1200 ml Intake Oral 1200 ml # Voids 6 Abdomen: Normal bowel sounds, Soft, No tenderness Heart: Normal S1, Normal S2, Other (no gallops, clicks or rubs) Extremities: No cyanosis, No edema, Normal pulses General: Alert, Oriented X3, Cooperative, No acute distress Lungs: Clear to auscultation, Normal air movement Neuro: Normal speech Psych/Mental Status: Other (flat affect) Review of Relevant I have reviewed the following items dontrell (where applicable) has been applied. Labs Laboratory Tests Test 08/06/18 23:19 08/08/18 06:25 White Blood Count 5.7 x10^3/uL (4.0-11.0) Red Blood Count 3.41 x10^6/uL (3.50-5.40) Hemoglobin 11.9 g/dL (12.0-15.5) Hematocrit 35.8 % (36.0-47.0) Mean Corpuscular Volume 105 fL (79-100) Mean Corpuscular Hemoglobin 35 pg (25-35) Mean Corpuscular Hemoglobin Concent 33 g/dL (31-37) Red Cell Distribution Width 14.0 % (11.5-14.5) Platelet Count 320 x10^3/uL (140-400) Neutrophils (%) (Auto) 52 % (31-73) Lymphocytes (%) (Auto) 30 % (24-48) Monocytes (%) (Auto) 12 % (0-9) Eosinophils (%) (Auto) 6 % (0-3) Basophils (%) (Auto) 1 % (0-3) Neutrophils # (Auto) 2.9 x10^3uL (1.8-7.7) Lymphocytes # (Auto) 1.7 x10^3/uL (1.0-4.8) Monocytes # (Auto) 0.7 x10^3/uL (0.0-1.1) Eosinophils # (Auto) 0.3 x10^3/uL (0.0-0.7) Basophils # (Auto) 0.1 x10^3/uL (0.0-0.2) D-Dimer (Luzmaria) 0.64 mg/L (0.00-0.50) Sodium Level 141 mmol/L (136-145) 142 mmol/L (136-145) Potassium Level 3.5 mmol/L (3.5-5.1) 4.0 mmol/L (3.5-5.1) Chloride Level 103 mmol/L (98-107) 106 mmol/L (98-107) Carbon Dioxide Level 28 mmol/L (21-32) 26 mmol/L (21-32) Anion Gap 10 (6-14) 10 (6-14) Blood Urea Nitrogen 22 mg/dL (7-20) 18 mg/dL (7-20) Creatinine 1.0 mg/dL (0.6-1.0) 0.9 mg/dL (0.6-1.0) Estimated GFR (Cockcroft-Gault) 53.9 60.9 Glucose Level 135 mg/dL (70-99) 93 mg/dL (70-99) Calcium Level 9.1 mg/dL (8.5-10.1) 8.7 mg/dL (8.5-10.1) Troponin I Quantitative < 0.017 ng/mL (0-0.055) Triglycerides Level 47 mg/dL (0-150) Cholesterol Level 144 mg/dL (0-200) LDL Cholesterol, Calculated 51 mg/dL (0-100) VLDL Cholesterol, Calculated 9 mg/dL (0-40) Non-HDL Cholesterol Calculated 60 mg/dL (0-129) HDL Cholesterol 84 mg/dL (40-60) Cholesterol/HDL Ratio 1.0 BUN/Creatinine Ratio 20 (6-20) Total Bilirubin 0.2 mg/dL (0.2-1.0) Aspartate Amino Transf (AST/SGOT) 15 U/L (15-37) Alanine Aminotransferase (ALT/SGPT) 18 U/L (14-59) Alkaline Phosphatase 66 U/L (46-116) Total Protein 7.1 g/dL (6.4-8.2) Albumin 3.2 g/dL (3.4-5.0) Albumin/Globulin Ratio 0.8 (1.0-1.7) Medications Current Medications Sodium Chloride 500 ml @ 0 mls/hr 1X ONCE IV Last administered on 08/07/18at 00 :15; Start 08/06/18 at 23:15; Stop 08/06/18 at 23:16; Status DC Ondansetron HCl (Zofran) 4 mg PRN Q4HRS PRN IV NAUSEA/VOMITING; Start 08/07/18 at 00:30; Stop 08/08/18 at 00:29; Status DC Levothyroxine Sodium (Synthroid) 75 mcg DAILYAC PO Last administered on at 07:33; Start 08/07/18 at 07:30 Aspirin (Children'S Aspirin) 81 mg DAILYWBKFT PO Last administered on at 08:30; Start 08/07/18 at 08:00; Stop 08/07/18 at 18:23; Status DC Atorvastatin Calcium (Lipitor) 10 mg QHS PO Last administered on 08/07/18at 21: 06; Start 08/07/18 at 21:00 Donepezil HCl (Aricept) 20 mg QHS PO Last administered on 08/07/18 21:06; Start 08/07/18 at 21:00 Oxybutynin Chloride (Ditropan) 5 mg [id number] PO Last administered on 08/08/18 08 :19; Start 08/07/18 at 09:00 Aspirin (Children'S Aspirin) 162 mg DAILYWBKFT PO Last administered on at 08:19; Start 08/08/18 at 08:00 Active Scripts Active Reported Atorvastatin Calcium 10 Mg Tablet 10 Mg PO QHS LAST DOSE GIVEN: DATE: YESTERDAY TIME: BEDTIME NEXT DOSE DUE: DATE: TODAY TIME: BEDTIME Donepezil Hcl 10 Mg Tab.rapdis 20 Mg PO HS LAST DOSE GIVEN: DATE: YESTERDAY TIME: BEDTIME NEXT DOSE DUE: DATE: TODAY TIME: BEDTIME Detrol La (Tolterodine Tartrate) 4 Mg Cap.er.24h 4 Mg PO DAILY AUTO-SUBSTITUTED FOR DITROPAN LAST DOSE GIVEN: DATE: TODAY TIME: 2:00 PM NEXT DOSE DUE: DATE: TOMORROW TIME: AM Aspirin 81 Mg Tab.chew 81 Mg PO DAILY LAST DOSE GIVEN: DATE: TODAY TIME: AM NEXT DOSE DUE: DATE: TOMORROW TIME: AM Synthroid (Levothyroxine Sodium) 75 Mcg Tablet 75 Mcg PO DAILYAC LAST DOSE GIVEN: DATE: TODAY TIME: AM NEXT DOSE DUE: DATE: TOMORROW TIME: AM Vitals/I & O Vital Sign - Last 24 Hours 08/07/18 08/07/18 08/07/18 08/07/18 11:00 15:16 17:57 19:15 Temp 98.0 98.4 97.6 Pulse 66 62 60 Resp 20 20 20 B/P (MAP) 112/54 (73) 109/57 (74) 133/74 (93) Pulse Ox 97 98 98 O2 Delivery Room Air Room Air Room Air Room Air 08/07/18 08/08/18 08/08/18 23:03 05:19 08:00 Temp 98.4 97.6 Pulse 57 63 Resp 18 18 B/P (MAP) 112/63 (79) 108/65 (79) Pulse Ox 97 97 O2 Delivery Room Air Room Air Room Air Intake and Output 08/07/18 08/07/18 08/08/18 15:00 23:00 07:00 Intake Total 760 ml 340 ml 100 ml Balance 760 ml 340 ml 100 ml SUHAS WILSON MD 08/08/18 1723: PROGRESS NOTES Assessment Patient seen and examined. Agree with COMMERCIAL COUNSEL's assessment and plan. Telemetry did not show any significant arrhythmias 2-D echo showed normal LV systolic function Plan for event monitor as an outpatient ALEJANDRO HARRIS APRN Aug 08, 2018 10:05 SUHAS WILSON MD Aug 08, 2018 17:23
[2018-08-08 10:17] VITALS: BP 100/63
--- NOTE | 2018-08-08 20:43 | PN ---
DATE: 08/08/2018 SUBJECTIVE: The patient denies any new medical or neurological complaints. She has not had any syncopal episode or seizure-like activities. She denies chest pain, shortness of breath, palpitation, dysarthria, dysphagia, weakness, or paresthesia. OBJECTIVE: GENERAL: A well-developed, well-nourished female, not in acute distress. VITAL SIGNS: Blood pressure 108/65, respiratory rate 18, pulse is 63, temperature 97.6, oxygen saturation 97% on room air. HEENT: Normocephalic, atraumatic, otherwise unremarkable. NECK: Supple. Negative for carotid bruit, lymphadenopathy, or thyromegaly. LUNGS: Clear to A and P. CARDIOVASCULAR: Regular rhythm, normal S1, S2. There is no S3, S4 or murmur. ABDOMEN: Soft. Bowel sounds positive. EXTREMITIES: Negative for cyanosis, clubbing, or pitting edema. NEUROLOGIC: Mental status: The patient is alert and oriented x 3. Speech is fluent. There is no language dysfunction. Memory, ____ minutes. Judgment and abstract thinking are fair and normal. The patient denies any hallucination or delusion. Cranial nerves are intact. No focal motor or sensory deficit. Deep tendon reflexes were symmetric and active without pathology responses. Gait and stance is steady. The patient walks in without assistance. IMPRESSION: 1. Recurrent syncopal episodes, etiology uncertain and history of possible seizure-like activities. Differential diagnosis includes orthostatic hypotension, paroxysmal cardiac arrhythmia, dehydrations, transient ischemic attack. 2. Multiple medical problems include early dementia, hyperlipidemia, and hypothyroidism. RECOMMENDATION: 1. Continue with current management. 2. For further evaluation for her spells, prolong video monitoring and EEG is recommended to be done on an outpatient basis. PANCHITO CAROLINA MD DR: SIENA/waldemar JOB#: [id number] / [id number]
--- NOTE | 2018-08-09 00:54 | PN ---
DATE: 08/08/2018 NO DICTATION JUAN LEACH MD DR: BLANCHE/waldemar JOB#: [id number] / [id number]
== END 2018-08-08 14:27 | disposition home or self-care (01) ==
LOC: ER 22:51 → 1 SOUTH 08-07 00:25 → UNDOADMOB 08-07 00:25 → INTOOBSV 08-07 00:25 → 1 SOUTH 08-08 13:26 → UNDODISOB 08-08 14:27
PROVIDERS: ADMIT Internal Medicine; ATTEND Internal Medicine
DX: R55 Syncope and collapse (principal); E78.5 Hyperlipidemia, unspecified; E03.9 Hypothyroidism, unspecified; F03.90 Unspecified dementia, unspecified severity, without behavioral disturbance, psychotic disturbance, mood disturbance, and anxiety; I10 Essential (primary) hypertension; N32.81 Overactive bladder; K21.9 Gastro-esophageal reflux disease without esophagitis; I26.99 Other pulmonary embolism without acute cor pulmonale; G45.9 Transient cerebral ischemic attack, unspecified; F32.9 Major depressive disorder, single episode, unspecified; N39.0 Urinary tract infection, site not specified; M19.90 Unspecified osteoarthritis, unspecified site; Z86.73 Personal history of transient ischemic attack (TIA), and cerebral infarction without residual deficits; Z87.891 Personal history of nicotine dependence
CPT/HCPCS: 36415; 70450; 80048; 80053; 80061; 84484; 85025; 85379; 93005; 93306; 93880; 96360; 96361; 97162; 97166; 97530; 99284; G0378; J7040; G0379

== ENCOUNTER → 2019-03-20 | Outpatient (CLI) | payer OTHER, MEDICAID ==
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
== END | disposition home or self-care (01) ==
LOC: PMG 10:10
PROVIDERS: ATTEND Physician Assistant
DX: M25.561 Pain in right knee (principal)
CPT/HCPCS: 73560

== ENCOUNTER → 2019-07-20 | Outpatient (CLI) | payer OTHER, MEDICAID ==
[~2019-07-20] MED LIST changes: +OXYB5TAB10 PO; -OXYB5TAB7 PO
--- NOTE | 2019-07-22 12:29 | RAD ---
DATE: 07/20/2019. EXAM: DIGITAL SCREEN BILAT W/CAD. HISTORY: Routine mammographic screening. COMPARISON: 12/10/2017. This study was interpreted with the benefit of Computerized Aided Detection (CAD). FINDINGS: Breast Density: HETERO The breast parenchyma is heterogenously dense, which could reduce sensitivity of mammography. Breast parenchyma level C.. Scattered, coarse and vascular calcifications are benign. The parenchymal pattern is stable. There are no suspicious masses, microcalcifications or architectural distortion. BI-RADS CATEGORY: 2 BENIGN FINDING(S). RECOMMENDED FOLLOW-UP: 12M 12 MONTH FOLLOW-UP. PQRS compliance statement: Patient information was entered into a reminder system with a target due date 07/20/2020 for the next mammogram. Mammography is a sensitive method for finding small breast cancers, but it does not detect them all and is not a substitute for careful clinical examination. A negative mammogram does not negate a clinically suspicious finding and should not result in delay in biopsying a clinically suspicious abnormality. "Our facility is accredited by the [employer] Mammography Program."
== END | disposition home or self-care (01) ==
LOC: MAMMO 09:01
PROVIDERS: ATTEND Physician Assistant
DX: Z12.31 Encounter for screening mammogram for malignant neoplasm of breast (principal); N64.89 Other specified disorders of breast
CPT/HCPCS: 77067

== ENCOUNTER → 2019-11-09 | Outpatient (CLI) | payer MEDICARE, MEDICAID ==
--- NOTE | 2019-11-09 13:06 | RAD ---
Carotid doppler ultrasound History: Syncope Multiple grayscale, color, and duplex spectral analysis waveform sonographic images were acquired of the carotid, subclavian, and vertebral arteries. Comparison: None Findings: RIGHT: PSV cm/sec EDV cm/sec Common carotid artery 76 16 Maximal internal carotid artery 63 15 External carotid artery 45 Vertebral artery 33 ICA/CCA ratio 0.82 LEFT: PSV cm/sec EDV cm/sec Common carotid artery 63 13 Maximum internal carotid artery 122 23 External carotid artery 106 Vertebral artery 50 ICA/CCA ratio 1.9 Velocities used to determine stenosis are known to correlate with NASCET angiographic criteria. There is antegrade flow in the bilateral vertebral arteries. There is some plaque of the carotid bulbs bilaterally, no significantly stenosis demonstrated on grayscale or color images. Impression: 1. There is no evidence of a hemodynamically significant stenosis. Electronically signed by: Darius Banks MD (11/09/2019 1:03 PM) [id number]
== END | disposition home or self-care (01) ==
LOC: US 10:18
PROVIDERS: ATTEND Physician Assistant
DX: I65.23 Occlusion and stenosis of bilateral carotid arteries (principal)
CPT/HCPCS: 93880

== ENCOUNTER → 2019-12-08 | Outpatient (CLI) | payer MEDICARE, MEDICAID ==
[2019-12-09 16:11] LABS: FREE T4 1.01 ng/dL (0.76-1.46); THYROID STIM HORMONE (TSH) 1.294 uIU/mL (0.358-3.740)
== END | disposition home or self-care (01) ==
LOC: LAB 15:52
PROVIDERS: ATTEND Physician Assistant
DX: E03.9 Hypothyroidism, unspecified (principal)
CPT/HCPCS: 84439; 84443

== ENCOUNTER 2020-02-13 16:09 | Emergency (ER) | payer MEDICARE, MEDICAID ==
[~2020-02-13] VITALS: Ht 312.4 cm; Wt 55.7 kg
[2020-02-13 16:09] VITALS: BP 145/61
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
== END 2020-02-13 17:53 | disposition home or self-care (01) ==
LOC: ER 16:09
DX: S40.011A Contusion of right shoulder, initial encounter (principal); E03.9 Hypothyroidism, unspecified; F03.90 Unspecified dementia, unspecified severity, without behavioral disturbance, psychotic disturbance, mood disturbance, and anxiety; Z87.440 Personal history of urinary (tract) infections; Z86.73 Personal history of transient ischemic attack (TIA), and cerebral infarction without residual deficits; Y08.89XA Assault by other specified means, initial encounter; Y93.89 Activity, other specified; Y92.89 Other specified places as the place of occurrence of the external cause; Y99.8 Other external cause status
CPT/HCPCS: 73030; 99283

== ENCOUNTER 2020-09-17 18:40 | Emergency (ER) | payer MEDICARE, MEDICAID ==
[~2020-09-17] VITALS: Ht 152.4 cm; Wt 50.2 kg
[~2020-09-17 18:40] MED LIST changes: -PANT40TA5 PO; +PANT40TA6 PO
--- NOTE | 2020-09-17 18:42 | PHYS DOC ---
Past History Past Medical History: Dementia, Hypothyroid, TIA, UTI Past Surgical History: Tubal ligation, Other Alcohol Use: Occasionally Drug Use: None General Adult EDM: Chief Complaint: WEAKNESS/GENERALIZED HPI: HPI: "...I was in the kitchen... I passed out.... I fell... I hit my head... I dont know.. my hip hurt a while.. it better now...".." I knocked me out...." " My back hurts...but better now...".. " I want to go home now...' Patient is a 80 year old female who presents with above hx and complaints of increased weakness and fatigue. Patient reports an episode of dizziness/near syncope which caused him to fall and strike her head. Patient also complaining of pain in hips and lumbar sacral area. Patient is somewhat of a poor historian. Patient normally follows with [facility] for care. No recent travel or specific ill contacts. Patient has a past medical history of dementia, hyperlipidemia, hypothyroidism, overactive bladder and urinary incontinence, has had previous admission for syncope episodes and 08/07/2018. Patient denies any change in medications. No other history of recent fall or injury. Patient medical history is somewhat sketchy because baseline poor historian and dementia. Review of Systems: Review of Systems: Constitutional: Denies fever or chills Eyes: Denies change in visual acuity HENT: Denies nasal congestion or sore throat Respiratory: Denies cough or shortness of breath Cardiovascular: Denies chest pain or edema GI: Denies abdominal pain, nausea, vomiting, bloody stools or diarrhea : Denies dysuria Musculoskeletal: Complains of back pain and hip joint pain Integument: Denies rash Neurologic: Complains of syncope, increasing fatigue, increasing weakness Endocrine: Denies polyuria or polydipsia Lymphatic: Denies swollen glands Psychiatric: History of depression or anxiety Family History: Family History: Family history noncontributory Current Medications: Current Meds: See nursing for home meds Allergies: Allergies: Allergies Coded Allergies Type Severity Reaction Last Updated Verified No Known Drug Allergies 02/12/18 No Physical Exam: PE: Constitutional: Moderate acute distress, chronically ill in the appearance HENT: Normocephalic, atraumatic, bilateral external ears normal, oropharynx dry, no oral exudates, nose normal. Very poor dentition. Eye brow paint across mid line Eyes: PERRLA, EOMI, conjunctiva normal, no discharge. [] Neck: Normal range of motion, no tenderness, supple, no stridor. [] Cardiovascular:Heart rate regular rhythm, no murmur [] Lungs & Thorax: Bilateral breath sounds equal apex on auscultation [] Abdomen: Bowel sounds normal, soft, no tenderness, no masses, no pulsatile masses. Incontinence of urine Skin: Warm, dry, no erythema, no rash. Poor turgor Back: Lumbar sacral tenderness, no CVA tenderness. [] Extremities: Bilateral hip tenderness, no cyanosis, no clubbing, ROM intact, no edema. [] Surgical scar Rt. leg. -femur Neurologic: Alert and oriented to name and knows she is at a hospital, moves extremities on request, does have distal sensory, no gross focal deficits noted. DTRs +2 patella and brachial. Hard of hearing Psychologic: Affect anxious, judgement impaired, mood normal. [] EKG: EKG: My interpretation EKG shows a sinus rhythm at 65 bpm. Low voltage. No findings of acute STEMI of contralateral changes. [] Radiology/Procedures: Radiology/Procedures: [place] [address] IMAGING REPORT Signed PATIENT: MARBIN GUTIERREZ LACCOUNT: [id number] : 1940 LOCATION: ER AGE: 80 SEX: F EXAM STATUS: REG ER ORD. PHYSICIAN: MABLE IRELAND MD REASON: dyspnea, chest wall pain, pleuritic, OMNI 350, 75ml PROCEDURE: CT ANGIOGRAPHY CHEST Exam: CT of chest with contrast INDICATION: Dyspnea, chest wall pain, pleuritic TECHNIQUE: Sequential axial images through the chest obtained following the administration of 75 mL of Omni 350 IV contrast. Sagittal and coronal reformatted images were reconstructed from the axial data and reviewed. 3-D reformatted images were reconstructed from the axial data and reviewed. Comparisons: Chest x-ray same day FINDINGS: Visualized portions of the thyroid are unremarkable. No enlarged mediastinal lymph nodes are identified. Heart size is normal. No pericardial effusion. Mild coronary artery calcifications. Thoracic aorta has a normal course and caliber. Pulmonary artery is not enlarged. No pulmonary embolus identified within the main, lobar or segmental pulmonary arteries. Airways are patent. No consolidation or pneumothorax. There are strandy opacities at the dependent portion the lungs likely representing atelectasis. No pleural effusion or thickening. Visualized upper abdomen is unremarkable. No suspicious osseous lesions or acute fractures. IMPRESSION: No pulmonary embolus identified within the main, lobar or segmental pulmonary arteries. Exposure: One or more of the following in the visualized dose reduction techniques were utilized for this examination: 1. Automated exposure control 2. Adjustment of the MA and/or KV according to patient size 3. Use of iterative of reconstructive technique Electronically signed by: Mami Kaiser MD (09/17/2020 10:44 PM) [facility] DICTATED AND SIGNED BY: MAMI KAISER MD DATE: 09/17/202240 CC: MABLE IRELAND MD; MARIANO GOETZ ~MTH0 0 [][address] [address] IMAGING REPORT Signed PATIENT: MARBIN GUTIERREZ LACCOUNT: [id number] : 1940 LOCATION: ER AGE: 80 SEX: F EXAM STATUS: REG ER ORD. PHYSICIAN: MABLE IRELAND MD REASON: dyspnea PROCEDURE: PORTABLE CHEST 1V EXAM: CT Head without IV contrast INDICATION: Reason: syncope and fall / Spl. Instructions: / History: TECHNIQUE: Multi-detector row CT images were obtained of the head without the use of IV contrast. All CT scans performed at this facility utilize dose optimization techniques as appropriate to the exam, including the following: Automated exposure control and adjustment of the mA and/or KV according to patient size (this includes techniques or standardized protocols for targeted exams where dose is indication/reason for exam). COMPARISON: None FINDINGS: BRAIN PARENCHYMA: No evidence of acute intraparenchymal hemorrhage or infarct. Extensive white matter low-density compatible chronic ischemic microvascular change. VENTRICLES & EXTRA-AXIAL SPACES: Ventricles are within normal limits. Basilar cisterns are patent. No pathologic extra-axial fluid collection or mass. ORBITS: Orbital contents are unremarkable. SINUSES: Visualized paranasal sinuses and mastoid air cells are clear. OSSEOUS & SOFT TISSUES: Calvarium and skull base are intact. IMPRESSION: No acute intracranial pathology. EXAM: CT Cervical Spine without IV contrast INDICATION: Reason: syncope and fall / Spl. Instructions: / History: TECHNIQUE: Multi-detector row CT images were obtained through the cervical spine without the use of IV contrast. Post-processing sagittal and coronal reconstructed images were obtained for interpretation. All CT scans performed at this facility utilize dose optimization techniques as appropriate to the exam, including the following: Automated exposure control and adjustment of the mA and/or KV according to patient size (this includes techniques or standardized protocols for targeted exams where dose is indication/reason for exam). COMPARISON: None FINDINGS: CRANIOCERVICAL JUNCTION: Unremarkable. ALIGNMENT: Alignment is within normal limits. OSSEOUS: No evidence of fracture or bone destruction. DISC SPACES: Mild disc degenerative changes notably at C3-C4 bilaterally. FACET JOINTS: Unremarkable. SPINAL CANAL: Unremarkable. NEUROFORAMINA: Unremarkable. SOFT TISSUES: Unremarkable. IMPRESSION: Unremarkable CT of the cervical spine show no acute traumatic pathology but mild degenerative changes primarily in the upper disc levels. EXAM: XR CHEST 1V INDICATION: Reason: syncope and fall / Spl. Instructions: / History: . TECHNIQUE: Single view COMPARISON: None FINDINGS: The heart size is normal. The great vessels appear unremarkable. There is no hilar or mediastinal mass. The lungs are clear. There is no pleural effusion or pneumothorax. There are no significant osseous abnormalities. IMPRESSION: No active cardiopulmonary disease. EXAM: CT Lumbar Spine without IV contrast INDICATION: Reason: syncope and fall / Spl. Instructions: / History: TECHNIQUE: Multi-detector row CT images were obtained through the lumbar spine without the use of IV contrast. Post-processing sagittal and coronal reconstructed images were obtained for interpretation. All CT scans performed at this facility utilize dose optimization techniques as appropriate to the exam, including the following: Automated exposure control and adjustment of the mA and/or KV according to patient size (this includes techniques or standardized protocols for targeted exams where dose is indication/reason for exam). COMPARISON: None FINDINGS: The lowest fully formed disc is referred to as the L5-S1 level. ALIGNMENT: Grade 1 anterolisthesis of L4 on L5 is present OSSEOUS: No evidence of fracture or bone destruction. Bones are demineralized. DISC SPACES: Mild disc space narrowing at multiple levels in the lumbar spine. This is most conspicuous at L5-S1 where wxrv-yb-[id number] contact is present and vacuum phenomenon is seen. Incidental partial ossification of the disc at T11- T12. FACET JOINTS: Multilevel facet hypertrophic change is present, most conspicuously at L4-L5 and L5-S1 on the right. SPINAL CANAL: Unremarkable. NEUROFORAMINA: Unremarkable. SOFT TISSUES: Extensive arterial calcifications.. IMPRESSION: No acute traumatic findings in the lumbar spine with lower lumbar spinal degenerative spondylosis noted. EXAM: CT Pelvis without IV contrast INDICATION: Reason: syncope and fall / Spl. Instructions: / History: TECHNIQUE: Multi-detector row images were acquired from the iliac crest through the lesser trochanters without the use of IV contrast. Sagittal and coronal images were acquired from the transaxial data. All CT scans performed at this facility utilize dose optimization techniques as appropriate to the exam, including the following: Automated exposure control and adjustment of the mA and/or KV according to patient size (this includes techniques or standardized protocols for targeted exams where dose is indication/reason for exam). ORAL CONTRAST: None COMPARISON: None FINDINGS: The absence of IV contrast limits evaluation of soft tissue pathology. OSSEOUS:Right intramedullary sharee fixation of the right femur with no acute fracture or malalignment. BLADDER: Decompressed by an indwelling Cline catheter with some gas intraluminally. REPRODUCTIVE ORGANS: Unremarkable BOWEL: Extensive colonic diverticulosis. No acute diverticulitis. MESENTERY/PERITONEUM/RETROPERITONEUM: Unremarkable VASCULAR: Unremarkable LYMPH NODES: No adenopathy SOFT TISSUES: Unremarkable IMPRESSION: No acute traumatic findings on non-contrast CT of the pelvis. Electronically signed by: Izzy Vuong MD (09/17/2020 8:10 PM) [facility] [place] DICTATED AND SIGNED BY: IZZY VUONG MD DATE: 09/17/201956 CC: MABLE IRELAND MD; MARIANO GOETZ ~MTH0 0 Heart Score: HEART Score for Chest Pain: HEART Score for Chest Pain Response (Comments) Value History Slighlty/Non-Suspicious 0 ECG Normal 0 Age > 65 2 Risk Factors 1 or 2 Risk Factors 1 Troponin < Normal Limit 0 Total 3 Risk Factors: Risk Factors: DM, Current or recent (<one month) smoker, HTN, HLP, family history of CAD, obesity. Risk Scores: Score 0 - 3: 2.5% MACE over next 6 weeks - Discharge Home Score 4 - 6: 20.3% MACE over next 6 weeks - Admit for Clinical Observation Score 7 - 10: 72.7% MACE over next 6 weeks - Early Invasive Strategies Course & Med Decision Making: Course & Med Decision Making Pertinent Labs and Imaging studies reviewed. (See chart for details) Pt. to take Keflex 500 three times a day. Follow up cultures. Follow up with primary. MV with B complex. Push fluids times he drinks. Return if any concerns. Patient discharged to the care of her daughter. Impression: 1. Syncope 2. Head Injury 3. Anemia 11.6 Macrocytic, Hyperchromic 36 4. Elevated Creat. 1.2 5. UTI 5. Mild Dehydration [] Dragon Disclaimer: Dragon Disclaimer: This electronic medical record was generated, in whole or in part, using a voice recognition dictation system. Departure Departure: Referrals: MARIANO GOETZ (PCP) Scripts Fluconazole (DIFLUCAN) 100 Mg Tablet 100 MG PO DAILY for post antibiotic for 3 Days, #3 TAB Prov: MABLE IRELAND MD 09/17/20 Cephalexin (KEFLEX) 750 Mg Capsule 500 MG PO TID for UTI for 7 Days, #14 CAP Prov: MABLE IRELAND MD 09/17/20 Dragon Disclaimer This chart was dictated in whole or in part using Voice Recognition software in a busy, high-work load, and often noisy Emergency Department environment. It may contain unintended and wholly unrecognized errors or omissions. MABLE IRELAND MD Sep 17, 2020 18:42
[2020-09-17] MEDS ORDERED: IV RINGERS SOLUTION,LACTATED 1,000 ML IV SCH (18:45)
[2020-09-17 19:45] LABS: BARBITURATES NEG (NEG); BENZODIAZEPINES NEG (NEG); CANNABINOIDS NEG (NEG); COCAINE NEG (NEG); METHADONE NEG (NEG); OPIATES NEG (NEG); PHENCYCLIDINE NEG (NEG)
[2020-09-17 19:54] LABS: AMPHETAMINE/METHAMPHETAMINE NEG (NEG)
[2020-09-17 19:57] LABS: COLOR,URINE YELLOW
[2020-09-17 19:58] LABS: BILIRUBIN,URINE NEG (NEG); CLARITY,URINE CLOUDY; GLUCOSE,URINE NEG (NEG); NITRITE,URINE NEG (NEG); UROBILINOGEN,URINE 0.2 mg/dL (0.2 mg/dL)
[2020-09-17 19:59] LABS: BACTERIA,URINE MANY /HPF (0-FEW); SQUAMOUS EPITHELIAL CELL,UR MOD /LPF; WBC,URINE 20-40 /HPF (0-4)
[2020-09-17 19:59] LABS: BASO # 0.1 x10^3/uL (0.0-0.2); BASO % 1 % (0-3); CREATININE 1.2 mg/dL (0.6-1.0); EOS % 0 % (0-3); GFR 43.4; HEMATOCRIT 34.3 % (36.0-47.0); HEMOGLOBIN 11.6 g/dL (12.0-15.5); LYMPH # 1.1 x10^3/uL (1.0-4.8); LYMPH % 13 % (24-48); MEAN CORPUSCULAR HEMOGLOBIN 36 pg (25-35); MEAN CORPUSCULAR HGB CONC 34 g/dL (31-37); MEAN CORPUSCULAR VOLUME 105 fL (79-100); MONO # 0.6 x10^3/uL (0.0-1.1); MONO % 7 % (0-9); NEUT # 6.3 x10^3uL (1.8-7.7); NEUT % 78 % (31-73); PLATELET COUNT 322 x10^3/uL (140-400); POTASSIUM 4.4 mmol/L (3.5-5.1); RED BLOOD COUNT 3.26 x10^6/uL (3.50-5.40); RED CELL DISTRIBUTION WIDTH 13.7 % (11.5-14.5)
--- NOTE | 2020-09-17 20:12 | RAD ---
EXAM: CT Head without IV contrast INDICATION: Reason: syncope and fall / Spl. Instructions: / History: TECHNIQUE: Multi-detector row CT images were obtained of the head without the use of IV contrast. All CT scans performed at this facility utilize dose optimization techniques as appropriate to the exam, including the following: Automated exposure control and adjustment of the mA and/or KV according to patient size (this includes techniques or standardized protocols for targeted exams where dose is ind ication/reason for exam). COMPARISON: None FINDINGS: BRAIN PARENCHYMA: No evidence of acute intraparenchymal hemorrhage or infarct. Extensive white matter low-density compatible chronic ischemic microvascular change. VENTRICLES & EXTRA-AXIAL SPACES: Ventricles are within normal limits. Basilar cisterns are patent. N o pathologic extra-axial fluid collection or mass. ORBITS: Orbital contents are unremarkable. SINUSES: Visualized paranasal sinuses and mastoid air cells are clear. OSSEOUS & SOFT TISSUES: Calvarium and skull base are intact. IMPRESSION: No acute intracranial pathology. EXAM: CT Cervical Spine without IV contrast INDICATION: Reason: syncope and fall / Spl. Instructions: / History: TECHNIQUE: Multi-detector row CT images were obtained through the cervical spine without the use of IV contrast. Post-processing sagittal and coronal reconstructed images were obtained for interpretati on. All CT scans performed at this facility utilize dose optimization techniques as appropriate to th e exam, including the following: Automated exposure control and adjustment of the mA and/or KV accord ing to patient size (this includes techniques or standardized protocols for targeted exams where dose is indication/reason for exam). COMPARISON: None FINDINGS: CRANIOCERVICAL JUNCTION: Unremarkable. ALIGNMENT: Alignment is within normal limits. OSSEOUS: No evidence of fracture or bone destruction. DISC SPACES: Mild disc degenerative changes notably at C3-C4 bilaterally. FACET JOINTS: Unremarkable. SPINAL CANAL: Unremarkable. NEUROFORAMINA: Unremarkable. SOFT TISSUES: Unremarkable. IMPRESSION: Unremarkable CT of the cervical spine show no acute traumatic pathology but mild degenerative changes primarily in the upper disc levels. EXAM: XR CHEST 1V INDICATION: Reason: syncope and fall / Spl. Instructions: / History: . TECHNIQUE: Single view COMPARISON: None FINDINGS: The heart size is normal. The great vessels appear unremarkable. There is no hilar or mediastinal mass. The lungs are clear. There is no pleural effusion or pneumothorax. There are no significant osseous abnormalities. IMPRESSION: No active cardiopulmonary disease. EXAM: CT Lumbar Spine without IV contrast INDICATION: Reason: syncope and fall / Spl. Instructions: / History: TECHNIQUE: Multi-detector row CT images were obtained through the lumbar spine without the use of IV contrast. Post-processing sagittal and coronal reconstructed images were obtained for interpretation . All CT scans performed at this facility utilize dose optimization techniques as appropriate to the exam, including the following: Automated exposure control and adjustment of the mA and/or KV accordin g to patient size (this includes techniques or standardized protocols for targeted exams where dose i s indication/reason for exam). COMPARISON: None FINDINGS: The lowest fully formed disc is referred to as the L5-S1 level. ALIGNMENT: Grade 1 anterolisthesis of L4 on L5 is present OSSEOUS: No evidence of fracture or bone destruction. Bones are demineralized. DISC SPACES: Mild disc space narrowing at multiple levels in the lumbar spine. This is most conspicu ous at L5-S1 where vgwx-ue-[id number] contact is present and vacuum phenomenon is seen. Incidental partial ossification of the disc at T11-T12. FACET JOINTS: Multilevel facet hypertrophic change is present, most conspicuously at L4-L5 and L5-S1 on the right. SPINAL CANAL: Unremarkable. NEUROFORAMINA: Unremarkable. SOFT TISSUES: Extensive arterial calcifications.. IMPRESSION: No acute traumatic findings in the lumbar spine with lower lumbar spinal degenerative spondylosis not ed. EXAM: CT Pelvis without IV contrast INDICATION: Reason: syncope and fall / Spl. Instructions: / History: TECHNIQUE: Multi-detector row images were acquired from the iliac crest through the lesser trochanter s without the use of IV contrast. Sagittal and coronal images were acquired from the transaxial data. All CT scans performed at this facility utilize dose optimization techniques as appropriate to the e xam, including the following: Automated exposure control and adjustment of the mA and/or KV according to patient size (this includes techniques or standardized protocols for targeted exams where dose is indication/reason for exam). ORAL CONTRAST: None COMPARISON: None FINDINGS: The absence of IV contrast limits evaluation of soft tissue pathology. OSSEOUS:Right intramedullary sharee fixation of the right femur with no acute fracture or malalignment. BLADDER: Decompressed by an indwelling Cline catheter with some gas intraluminally. REPRODUCTIVE ORGANS: Unremarkable BOWEL: Extensive colonic diverticulosis. No acute diverticulitis. MESENTERY/PERITONEUM/RETROPERITONEUM: Unremarkable VASCULAR: Unremarkable LYMPH NODES: No adenopathy SOFT TISSUES: Unremarkable IMPRESSION: No acute traumatic findings on non-contrast CT of the pelvis. Electronically signed by: Alea Vuong MD (09/17/2020 8:10 PM) [facility] [place]
[2020-09-17 20:14] LABS: ALBUMIN 3.7 g/dL (3.4-5.0); DIRECT BILIRUBIN 0.1 mg/dL (0.0-0.2); MAGNESIUM 2.1 mg/dL (1.8-2.4); TOTAL BILIRUBIN 0.3 mg/dL (0.2-1.0); TOTAL PROTEIN 7.8 g/dL (6.4-8.2)
--- NOTE | 2020-09-17 20:35 | EKG ---
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
[2020-09-17] MEDS ORDERED: IV NORMAL SALINE 50ML 50 ML ONE (20:46)
[2020-09-17] MEDS ORDERED: cefTRIAXone SODIUM 1 GM VIAL ONE (20:46)
[2020-09-17] MEDS ORDERED: CONTRAST GIVEN. MC PRN (21:15)
[2020-09-17] MEDS ORDERED: ENOXAPARIN ** NOTE DOSE ** SYRINGE SQ ONE (21:30)
[2020-09-17] MEDS ORDERED: IOHEXOL 350 MG/ML 100 ML VIAL. IV ONE (21:30)
[2020-09-17 22:40] VITALS: BP 145/80
--- NOTE | 2020-09-17 22:46 | RAD ---
Exam: CT of chest with contrast INDICATION: Dyspnea, chest wall pain, pleuritic TECHNIQUE: Sequential axial images through the chest obtained following the administration of 75 mL o f Omni 350 IV contrast. Sagittal and coronal reformatted images were reconstructed from the axial brigid a and reviewed. 3-D reformatted images were reconstructed from the axial data and reviewed. Comparisons: Chest x-ray same day FINDINGS: Visualized portions of the thyroid are unremarkable. No enlarged mediastinal lymph nodes are identifi ed. Heart size is normal. No pericardial effusion. Mild coronary artery calcifications. Thoracic aorta hooper s a normal course and caliber. Pulmonary artery is not enlarged. No pulmonary embolus identified with in the main, lobar or segmental pulmonary arteries. Airways are patent. No consolidation or pneumothorax. There are strandy opacities at the dependent po rtion the lungs likely representing atelectasis. No pleural effusion or thickening. Visualized upper abdomen is unremarkable. No suspicious osseous lesions or acute fractures. IMPRESSION: No pulmonary embolus identified within the main, lobar or segmental pulmonary arteries. Exposure: One or more of the following in the visualized dose reduction techniques were utilized for this examination: 1. Automated exposure control 2. Adjustment of the MA and/or KV according to patient size 3. Use of iterative of reconstructive technique Electronically signed by: Mami Humphrey MD (09/17/2020 10:44 PM) [facility]
[2020-09-17] MEDS ORDERED: CEPH750C9 PO (23:09)
[2020-09-17] MEDS ORDERED: FLUC100T7 PO (23:09)
--- NOTE | 2020-09-19 10:44 | NUR ---
IP: attempt to notify patient of COVID result, left callback message.
--- NOTE | 2020-09-21 09:45 | NUR ---
IP: attempt to notify patient, left callback message
== END 2020-09-17 23:25 | disposition home or self-care (01) ==
LOC: ER 18:40
DX: S09.90XA Unspecified injury of head, initial encounter (principal); M25.551 Pain in right hip; M25.552 Pain in left hip; R55 Syncope and collapse; D64.9 Anemia, unspecified; R79.89 Other specified abnormal findings of blood chemistry; N39.0 Urinary tract infection, site not specified; E86.0 Dehydration; F03.90 Unspecified dementia, unspecified severity, without behavioral disturbance, psychotic disturbance, mood disturbance, and anxiety; E03.9 Hypothyroidism, unspecified; Z20.822 Contact with and (suspected) exposure to COVID-19; Z87.440 Personal history of urinary (tract) infections; Z86.73 Personal history of transient ischemic attack (TIA), and cerebral infarction without residual deficits; Z98.51 Tubal ligation status; W18.09XA Striking against other object with subsequent fall, initial encounter; Y93.89 Activity, other specified; Y92.89 Other specified places as the place of occurrence of the external cause; Y99.8 Other external cause status
CPT/HCPCS: 36415; 51702; 70450; 71045; 71275; 72125; 72131; 72192; 80048; 80076; 80307; 81001; 82550; 83605; 83690; 83735; 83880; 84443; 84484; 85025; 85379; 85610; 85730; 87040; 87086; 93005; 96361; 96365; 96372; 99285; C9803; G0480; J0696; J1650; J7120; Q9967; U0003

== ENCOUNTER 2020-10-12 12:04 | Emergency (ER) | payer MEDICARE, MEDICAID ==
[~2020-10-12] VITALS: Ht 152.4 cm; Wt 50.2 kg
[~2020-10-12 12:04] MED LIST changes: +CEPH750C9 PO; +FLUC100T7 PO
--- NOTE | 2020-10-12 12:28 | PHYS DOC ---
Past History Past Medical History: Dementia, Hypothyroid, TIA, UTI Past Surgical History: Tubal ligation, Other Alcohol Use: Occasionally Drug Use: None Adult General Chief Complaint Chief Complaint: MECHANICAL FALL HPI HPI Patient is a 80-year-old female patient presents with weakness and malaise. Patient reportedly was feeling too weak to get out of bed this morning per her family, reported to her daughter that she had not been out of bed however was fo und lying facedown on the floor in the residence late this morning. Patient reportedly had been in lupus facility approximate 1 month ago for a syncope, had been found to have UTI at that time, had been prescribed and had completed her antibiotics. Family reports patient has been acting normal yesterday, has not been having any complaints or concerns however family is concerned because patient does seem a little more confused. Patient does have a history of baseline dementia, lives at home with spouse, and does continue to drive. Family members report patient does seem to have a little bit of a slurred speech today, however they are not sure if patient had a stroke or if it is related to swelling in her lip from her fall. Patient denies any complaints at this time Review of Systems Review of Systems Constitutional: Denies fever or chills [] Eyes: Denies change in visual acuity, redness, or eye pain [] HENT: Denies nasal congestion or sore throat [] Respiratory: Denies cough or shortness of breath [] Cardiovascular: No additional information not addressed in HPI [] GI: Denies abdominal pain, nausea, vomiting, bloody stools or diarrhea [] : Denies dysuria or hematuria [] Musculoskeletal: Denies back pain or joint pain [] denies neck pain. Integument: Denies rash or skin lesions [] Neurologic: Denies headache, focal weakness or sensory changes [] Endocrine: Denies polyuria or polydipsia [] All other systems were reviewed and found to be within normal limits, except as documented in this note. Allergies Allergies Allergies Coded Allergies Type Severity Reaction Last Updated Verified No Known Drug Allergies 02/12/18 No Physical Exam Physical Exam Constitutional: Chronically frail, no acute distress, non-toxic appearance. [] HENT: Normocephalic, atraumatic, bilateral external ears normal, oropharynx moist, no oral exudates, nose normal. Moderate swelling noted to right lower lip. No facial droop noted. [] Converses with slight slurring of speech Eyes: PERRLA, EOMI, conjunctiva normal, no discharge. [] Neck: Normal range of motion, no tenderness, supple, no stridor. [] Cardiovascular:Heart rate regular rhythm, no murmur [] Lungs & Thorax: Bilateral breath sounds clear to auscultation [] Abdomen: Bowel sounds normal, soft, no tenderness, no masses, no pulsatile masses. [] Skin: Warm, dry, no erythema, no rash. [] Erythematous noted to right anterior chest, right anterior breast, with abrasion, no active bleeding, no overlying tenderness. Back: No tenderness, no CVA tenderness. [] Extremities: No tenderness, no cyanosis, no clubbing, ROM intact, no edema. [] Neurologic: Alert and oriented X 3, normal motor function, normal sensory function, no focal deficits noted. [] Minimal ataxia finger touch, able to follow commands follow finger, however does forget, believe more likely related to underlying dementia. Able to raise extremities, sensation intact in all extremities. Psychologic: Affect normal, judgement normal, mood normal. [] Current Patient Data Lab Results Laboratory Tests Test 10/12/20 12:20 Glucose (Fingerstick) 93 mg/dL (70-99) EKG EKG []no STEMI Per Dr Barajas.@1228 Sinus rhythm without ectopy. normal axis, normal intervals. HR 67. no prior EKG for comparison. Radiology/Procedures Radiology/Procedures []PROCEDURE: CHEST AP ONLY AP chest. HISTORY: Syncope AP view was taken of the chest. Lungs are clear. Heart is normal in size. There is no pleural effusion. There is a granuloma on the right. IMPRESSION: 1. No acute chest disease. Electronically signed by: Michael Faustin MD (10/12/2020 12:52 PM) [id number] PROCEDURE: CT HEAD WO CONTRAST CT head without contrast: Reason for examination: Slurred speech and syncope. Comparison is made to previous studies dated 09/17/2020 and 08/07/2018. Helical images were obtained through the brain with no contrast administered. Exposure: One or more of the following individualized dose reduction techniques were utilized for this examination: 1. Automated exposure control 2. Adjustment of the mA and/or kV according to patient size 3. Use of iterative reconstruction technique. Ventricular systems are prominent but symmetric and consistent with patient's advanced age and central atrophy. No midline shift is seen. There are patchy deep white matter changes in the frontal and parietal lobes consistent with microvascular ischemia. There appear to be bilateral basal ganglia calcifications which are unchanged. No acute hemorrhage, infarcts, masses or edema are present. No abnormalities of seen at the orbits. The paranasal sinuses and mastoid air cells are clear. No acute abnormality seen in the skull. IMPRESSION: Changes in the deep white matter consistent with microvascular ischemia. No acute intracranial abnormality evident. Electronically signed by: Stephanie Gayle MD (10/12/2020 1:23 PM) [facility] Heart Score Risk Factors: Risk Factors: DM, Current or recent (<one month) smoker, HTN, HLP, family history of CAD, obesity. Risk Scores: Risk Factors: DM, Current or recent (<one month) smoker, HTN, HLP, family history of CAD, obesity. Course & Med Decision Making Course & Med Decision Making Pertinent Labs and Imaging studies reviewed. (See chart for details) []Reviewed imaging with no change on CT compared to prior which also noted chronic microvascular ischemia. Without focal findings, believe speech slurring is likely related to swelling in lip from fall. Limitations on NIH completion due to underlying dementia regarding following all commands. Discussed results with daughter, feels comfortable with patient going home. Patient lives with spouse, and daughter will be with patient for a while. Recommend follow up with PCP early, and monitor patient for any concerns. Dragon Disclaimer Dragon Disclaimer This electronic medical record was generated, in whole or in part, using a voice recognition dictation system. Departure Departure: Impression: Primary Impression: Fall Additional Impressions: Dementia Weakness Disposition: 01 DC HOME SELF CARE/HOMELESS Condition: STABLE Referrals: MARIANO GOETZ (PCP) Patient Instructions: Weakness Additional Instructions: As discussed, follow up with her PCP in the next week to see if she has improved. Make sure she moves from laying to standing slowly to prevent any episodes where her blood pressure may drop. Ensure she is staying hydrated. Problem Qualifiers Primary Impression: Fall Encounter type: initial encounter Qualified Codes: W19.XXXA - Unspecified fall, initial encounter Additional Impressions: Dementia Dementia type: unspecified type Dementia behavioral disturbance: without behavioral disturbance Qualified Codes: F03.90 - Unspecified dementia without behavioral disturbance RJ MOHAMUD APRN Oct 12, 2020 12:28
--- NOTE | 2020-10-12 12:55 | RAD ---
AP chest. HISTORY: Syncope AP view was taken of the chest. Lungs are clear. Heart is normal in size. There is no pleural effusio n. There is a granuloma on the right. IMPRESSION: 1. No acute chest disease. Electronically signed by: Michael Faustin MD (10/12/2020 12:52 PM) [id number]
[2020-10-12 13:07] LABS: BASO % 1 % (0-3); EOS % 1 % (0-3); HEMOGLOBIN 12.3 g/dL (12.0-15.5); LYMPH # 0.9 x10^3/uL (1.0-4.8); LYMPH % 11 % (24-48); MEAN CORPUSCULAR HEMOGLOBIN 35 pg (25-35); MEAN CORPUSCULAR HGB CONC 33 g/dL (31-37); MEAN CORPUSCULAR VOLUME 106 fL (79-100); MONO # 0.6 x10^3/uL (0.0-1.1); MONO % 8 % (0-9); NEUT # 6.4 x10^3uL (1.8-7.7); NEUT % 80 % (31-73); PLATELET COUNT 291 x10^3/uL (140-400); RED BLOOD COUNT 3.49 x10^6/uL (3.50-5.40); RED CELL DISTRIBUTION WIDTH 13.9 % (11.5-14.5)
[2020-10-12 13:13] LABS: CALCIUM 9.3 mg/dL (8.5-10.1); CREATININE 0.9 mg/dL (0.6-1.0); GFR 60.6; POTASSIUM 3.6 mmol/L (3.5-5.1)
[2020-10-12 13:24] LABS: ALBUMIN 3.9 g/dL (3.4-5.0); ALBUMIN/GLOBULIN RATIO 0.8 (1.0-1.7); TOTAL BILIRUBIN 0.5 mg/dL (0.2-1.0); TOTAL PROTEIN 8.5 g/dL (6.4-8.2)
--- NOTE | 2020-10-12 13:26 | RAD ---
CT head without contrast: Reason for examination: Slurred speech and syncope. Comparison is made to previous studies dated 09/17/2020 and 08/07/2018. Helical images were obtained through the brain with no contrast administered. Exposure: One or more of the following individualized dose reduction techniques were utilized for thi s examination: 1. Automated exposure control 2. Adjustment of the mA and/or kV according to patient size 3. Use of iterative reconstruction technique. Ventricular systems are prominent but symmetric and consistent with patient's advanced age and centra l atrophy. No midline shift is seen. There are patchy deep white matter changes in the frontal and pa rietal lobes consistent with microvascular ischemia. There appear to be bilateral basal ganglia calci fications which are unchanged. No acute hemorrhage, infarcts, masses or edema are present. No abnorma lities of seen at the orbits. The paranasal sinuses and mastoid air cells are clear. No acute abnorma lity seen in the skull. IMPRESSION: Changes in the deep white matter consistent with microvascular ischemia. No acute intracranial abnormality evident. Electronically signed by: Stephanie Gayle MD (10/12/2020 1:23 PM) [facility]
[2020-10-12 14:56] LABS: BILIRUBIN,URINE NEG (NEG); CLARITY,URINE CLEAR; COLOR,URINE YELLOW; GLUCOSE,URINE NEG (NEG); NITRITE,URINE NEG (NEG); UROBILINOGEN,URINE 0.2 mg/dL (0.2 mg/dL)
[2020-10-12 14:57] LABS: BACTERIA,URINE MOD /HPF (0-FEW); SQUAMOUS EPITHELIAL CELL,UR MANY /LPF; WBC,URINE OCC /HPF (0-4)
[2020-10-12 15:48] VITALS: BP 124/52
== END 2020-10-12 15:50 | disposition home or self-care (01) ==
LOC: ER 12:04
DX: S20.311A Abrasion of right front wall of thorax, initial encounter (principal); F03.90 Unspecified dementia, unspecified severity, without behavioral disturbance, psychotic disturbance, mood disturbance, and anxiety; R53.1 Weakness; E03.9 Hypothyroidism, unspecified; Z87.440 Personal history of urinary (tract) infections; Z86.73 Personal history of transient ischemic attack (TIA), and cerebral infarction without residual deficits; W18.39XA Other fall on same level, initial encounter; Y93.89 Activity, other specified; Y92.89 Other specified places as the place of occurrence of the external cause; Y99.8 Other external cause status
CPT/HCPCS: 36415; 70450; 71045; 80053; 81001; 82947; 83605; 84484; 85025; 87040; 87086; 99285; G0480

== ENCOUNTER → 2020-10-26 | Outpatient (CLI) | payer MEDICARE, MEDICAID ==
[2020-10-12 15:48] VITALS: BP 124/52
--- NOTE | 2020-10-26 15:47 | RAD ---
XR FOOT_RIGHT 3 VIEWS, XR EXAM OF ANKLE_RIGHT 3VIEWS History: Reason: RIGHT FOOT AND ANKLE PAIN. / Spl. Instructions: / History: Comparison: None. Technique: 3 weightbearing views of the right ankle. 3 weight pain views of the right foot. Findings: Decreased osseous mineralization. No fracture or dislocation. Ankle mortise and talar dome are intact . Normal calcaneal inclination. Hallux valgus. Lisfranc is normally aligned. Mild degenerative change s at the first metatarsophalangeal and first TMT joints. Soft tissues are unremarkable. Impression: 1. Hallux valgus. 2. No acute osseous abnormality of the right foot and ankle. Electronically signed by: Colt Blankenship MD (10/26/2020 3:45 PM) [facility]
== END ==
LOC: DXRAD 11:37
PROVIDERS: ATTEND Podiatrist Foot & Ankle Surgery
DX: M20.11 Hallux valgus (acquired), right foot (principal); M19.071 Primary osteoarthritis, right ankle and foot
CPT/HCPCS: 73610; 73630

== ENCOUNTER 2021-06-06 13:55 | Observation (INO) | payer MEDICARE, MEDICAID ==
[~2021-06-06] VITALS: Ht 157.5 cm; Wt 51.2 kg
--- NOTE | 2021-06-06 14:14 | RAD ---
EXAM: Head CT without contrast. HISTORY: Code stroke. TECHNIQUE: Computed tomographic images of the head were obtained without contrast. COMPARISON: 10/12/2020. FINDINGS: There is no acute or subacute extra-axial or intraparenchymal hemorrhage. There is no mass effect or midline shift. There is no hydrocephalus. There are areas of decreased attenuation within the cerebral white matter, nonspecific and likely related to chronic small vessel disease. There is cerebral volume loss. There are basal ganglia calcifications. The orbits are unremarkable. There is mild paranasal sinus thickening. The mastoid air cells are clear. There is incidental torus palatini. There is no suspicious calvarial lesion. IMPRESSION: 1. No acute intercranial finding. MRI is more sensitive for acute infarction. 2. Extensive cerebral white matter changes, most probably due to chronic small vessel disease in patient of this age. 3. Cerebral volume loss Findings were discussed with Dr. Vargas in the ED at 1400 hours on 06/06/2021. PQRS Compliance Statement: One or more of the following individualized dose reduction techniques were utilized for this examination: 1. Automated exposure control 2. Adjustment of the mA and/or kV according to patient size 3. Use of iterative reconstruction technique
--- NOTE | 2021-06-06 14:26 | EKG ---
[address] [address] Test Date: 2021-06-06 Test Time: 14:11:08 Pat Name: MARBIN GUTIERREZ Department: Room: Gender: F Clinical Administrative Coordinator: JUSTIN : 1940 Requested By: EDWARDO MOYER Order Number: [id number] Reading MD: Albert Garcia Measurements Intervals [place] Rate: 67 P: 73 AL: 140 QRS: 46 QRSD: 74 T: 34 QT: 418 QTc: 445 Interpretive Statements SINUS RHYTHM NORMAL ECG RI6.02 Compared to ECG 09/17/2020 20:00:13 No significant changes Electronically Signed On 06-06-2021 17:13:03 CDT by Albert Garcia
[2021-06-06 14:37] LABS: BASO # 0.1 x10^3/uL (0.0-0.2); BASO % 1 % (0-3); EOS # 0.2 x10^3/uL (0.0-0.7); EOS % 4 % (0-3); HEMOGLOBIN 11.7 g/dL (12.0-15.5); LYMPH # 1.7 x10^3/uL (1.0-4.8); LYMPH % 31 % (24-48); MEAN CORPUSCULAR HEMOGLOBIN 36 pg (25-35); MEAN CORPUSCULAR HGB CONC 33 g/dL (31-37); MEAN CORPUSCULAR VOLUME 108 fL (79-100); MONO # 0.6 x10^3/uL (0.0-1.1); MONO % 10 % (0-9); NEUT % 54 % (31-73); PLATELET COUNT 309 x10^3/uL (140-400); RED BLOOD COUNT 3.25 x10^6/uL (3.50-5.40); RED CELL DISTRIBUTION WIDTH 14.4 % (11.5-14.5); WHITE BLOOD COUNT 5.6 x10^3/uL (4.0-11.0)
--- NOTE | 2021-06-06 14:40 | PHYS DOC ---
Past History Past Medical History: CVA, Dementia, High Cholesterol, Hypertension, Hypothyroid, TIA, UTI Past Medical History Limited secondary to dementia Past Surgical History: Tubal ligation, Other Past Surgical History Limited secondary to dementia Alcohol Use: Occasionally Drug Use: None Social History Limited secondary to dementia General Adult EDM: Chief Complaint: NEURO SYMPTOMS/DEFICITS HPI: HPI: 80-year-old female presents with by private vehicle with her with concerned that patient might have had a "stroke ". reports that at approximately 1315 patient seemed to become more confused and was unable to answer questions and reportedly had some slurred speech. Patient has history of prior TIAs/CVA. reports patient does have some baseline slurred speech after a prior stroke. Denies known trauma. Denies fever or chills. Denies known exposure to COVID-19. Patient has received both Moderna COVID-19 vaccinations. History of present illness limited secondary to dementia. Review of Systems: Review of Systems: Review of systems limited secondary to acuity of condition and dementia Allergies: Allergies: Allergies Coded Allergies Type Severity Reaction Last Updated Verified No Known Drug Allergies 02/12/18 No Physical Exam: PE: Constitutional: Elderly, no acute distress, non-toxic appearance HENT: Normocephalic, atraumatic Eyes: PERRL, EOMI, conjunctiva normal, no discharge Neck: Normal range of motion, no tenderness, supple, no meningeal signs Lungs & Thorax: No respiratory distress, equal chest rise and fall Abdomen: Soft, no tenderness Skin: Warm, dry, no erythema, no rash Back: No tenderness, no CVA tenderness Extremities: No tenderness, ROM intact, no edema Neurologic: Alert and oriented X name, normal motor function, normal sensory function, mild slurred speech noted Psychologic: Affect normal, judgment abnormal Current Patient Data: Labs: Laboratory Tests Test 06/06/21 14:02 06/06/21 14:10 Glucose (Fingerstick) 105 mg/dL (70-99) H White Blood Count 5.6 x10^3/uL (4.0-11.0) Red Blood Count 3.25 x10^6/uL (3.50-5.40) L Hemoglobin 11.7 g/dL (12.0-15.5) L Hematocrit 35.0 % (36.0-47.0) L Mean Corpuscular Volume 108 fL (79-100) H Mean Corpuscular Hemoglobin 36 pg (25-35) H Mean Corpuscular Hemoglobin Concent 33 g/dL (31-37) Red Cell Distribution Width 14.4 % (11.5-14.5) Platelet Count 309 x10^3/uL (140-400) Neutrophils (%) (Auto) 54 % (31-73) Lymphocytes (%) (Auto) 31 % (24-48) Monocytes (%) (Auto) 10 % (0-9) H Eosinophils (%) (Auto) 4 % (0-3) H Basophils (%) (Auto) 1 % (0-3) Neutrophils # (Auto) 3.0 x10^3uL (1.8-7.7) Lymphocytes # (Auto) 1.7 x10^3/uL (1.0-4.8) Monocytes # (Auto) 0.6 x10^3/uL (0.0-1.1) Eosinophils # (Auto) 0.2 x10^3/uL (0.0-0.7) Basophils # (Auto) 0.1 x10^3/uL (0.0-0.2) Vital Signs: Vital Signs Date Time Temp Pulse Resp B/P (MAP) Pulse Ox O2 Delivery O2 Flow Rate FiO2 06/06/21 13:55 97.7 66 18 97/52 (67) 99 Room Air EKG: EKG: @1411 NSR at 67bpm, NO ST elevation, QRS 74ms, QT/QTc 418/445ms Radiology/Procedures: Radiology/Procedures: PROCEDURE: PORTABLE CHEST 1V Single view of the chest. 06/06/2021 2:04 PM Indication: Reason: altered mental status / Spl. Instructions: / History: Comparison: Chest radiograph October 12, 2020 Findings: There is no focal consolidation. There is no pleural effusion or pneumothorax. The cardiomediastinal silhouette and pulmonary vasculature are within normal limits. No acute osseous abnormalities are seen. Impression: No evidence of acute cardiopulmonary process. Electronically signed by: Abdi Stacy MD (06/06/2021 2:41 PM) [id number] PROCEDURE: CT CODE STROKE HEAD WO EXAM: Head CT without contrast. HISTORY: Code stroke. TECHNIQUE: Computed tomographic images of the head were obtained without contrast. COMPARISON: 10/12/2020. FINDINGS: There is no acute or subacute extra-axial or intraparenchymal hemorrhage. There is no mass effect or midline shift. There is no hydrocephalus. There are areas of decreased attenuation within the cerebral white matter, nonspecific and likely related to chronic small vessel disease. There is cerebral volume loss. There are basal ganglia calcifications. The orbits are unremarkable. There is mild paranasal sinus thickening. The mastoid air cells are clear. There is incidental torus palatini. There is no suspicious calvarial lesion. IMPRESSION: 1. No acute intercranial finding. MRI is more sensitive for acute infarction. 2. Extensive cerebral white matter changes, most probably due to chronic small vessel disease in patient of this age. 3. Cerebral volume loss Findings were discussed with Dr. Moyer in the ED at 1400 hours on 06/06/2021. PQRS Compliance Statement: One or more of the following individualized dose reduction techniques were utilized for this examination: 1. Automated exposure control 2. Adjustment of the mA and/or kV according to patient size 3. Use of iterative reconstruction technique DICTATED AND SIGNED BY: MICHELLE RIVERA MD DATE: 06/06/21 1410 Heart Score: C/O Chest Pain: N/A Course & Med Decision Making: Course & Med Decision Making Pertinent Labs and Imaging studies reviewed. (See chart for details) Patient presents with concern for TIA. Family reports patient became very confused, unable to answer questions, and had worsening slurred speech from her baseline. Last known well at approximately 1315. Patient sent directly to CT scan. CT without acute finding. Some chronic changes appreciated. NIHSS 2 given dysarthria and some expressive aphasia. Spouse reports significant improvement in symptoms. Given improvement patient not candidate for TPA. Aspirin however provided. Labs obtained and posted to chart. Chest x-ray w ithout acute process. Patient is a poor historian secondary to dementia. Patient requiring admission for further evaluation and treatment. Discussed with Dr. Keenan (hospitalist) who is in agreement with admission. Discussed findings and plan with patient and spouse, who acknowledges understanding and agreement. Evelyn Disclaimer: Evelyn Disclaimer: This electronic medical record was generated, in whole or in part, using a voice recognition dictation system. Departure Departure: Impression: Primary Impression: TIA (transient ischemic attack) Additional Impression: Dementia Qualified Codes: F03.91 - Unspecified dementia with behavioral disturbance Disposition: 09 ADMITTED INPATIENT Admitting Physician: Donald Keenan Condition: GUARDED Referrals: MARIANO GOETZ (PCP) NIHSS - ED NIH Stroke Scale: NIH Stroke Scale Response (Comments) Value Level of Consciousness: 0 Alert/Responsive 0 LOC Questions: 0 Answers both correctly 0 LOC Commands: 0 Performs both tasks 0 Best Gaze: 0 Normal 0 Visual: 0 No visual loss 0 Facial Palsy: 0 Normal, symmetrical 0 Motor - Left Arm 0 No drift 0 Motor - Right Arm 0 No drift 0 Motor - Left Leg 0 No drift 0 Motor: Right Leg 0 No drift 0 Limb Ataxia: 0 Absent 0 Sensory: 0 No loss 0 Best Language: 1 Mild to mod aphasia 1 Dysathria: 1 Mild to moderate 1 Extinction and Inattention: 0 Normal 0 Total 2 Critical Care Time Critical care time was 30 minutes which includes time at bedside, spent in discussion of patient's care with specialists and/or family members, with interpretation of laboratory and/or radiological studies and is exclusive of procedures. EDWARDO MOYER DO Jun 06, 2021 14:40
--- NOTE | 2021-06-06 14:44 | RAD ---
Single view of the chest. 06/06/2021 2:04 PM Indication: Reason: altered mental status / Spl. Instructions: / History: Comparison: Chest radiograph October 12, 2020 Findings: There is no focal consolidation. There is no pleural effusion or pneumothorax. The cardiome diastinal silhouette and pulmonary vasculature are within normal limits. No acute osseous abnormaliti es are seen. Impression: No evidence of acute cardiopulmonary process. Electronically signed by: Abdi Stacy MD (06/06/2021 2:41 PM) [id number]
[2021-06-06] MEDS ORDERED: ASPIRIN ENTERIC COATED 325 MG TABLET.DR. PO ONE (15:45)
[2021-06-06] MEDS ORDERED: KETOROLAC 15 MG/ML VIAL. IVP ONE (16:00)
[2021-06-06] MEDS ORDERED: LABETALOL 20 MG/4 ML DISP.SYRIN. IVP PRN (16:15)
[2021-06-06 17:21] LABS: CLARITY,URINE CLOUDY; COLOR,URINE YELLOW
[2021-06-06 17:22] LABS: BACTERIA,URINE MANY /HPF (0-FEW); BILIRUBIN,URINE NEG (NEG); GLUCOSE,URINE NEG (NEG); NITRITE,URINE NEG (NEG); SQUAMOUS EPITHELIAL CELL,UR FEW /LPF; UROBILINOGEN,URINE 0.2 mg/dL (0.2 mg/dL)
[2021-06-06 18:13] LABS: CALCIUM 9.2 mg/dL (8.5-10.1); CREATININE 0.9 mg/dL (0.6-1.0); GFR 60.6; POTASSIUM 3.6 mmol/L (3.5-5.1)
[2021-06-06 18:27] LABS: ALBUMIN/GLOBULIN RATIO 0.9 (1.0-1.7); TOTAL BILIRUBIN 0.3 mg/dL (0.2-1.0); TOTAL PROTEIN 8.3 g/dL (6.4-8.2)
[2021-06-06] MEDS ORDERED: CLOPIDOGREL BISULFATE 75 MG TABLET PO ONE (21:00)
[2021-06-06 21:36] VITALS: BP 181/68
[2021-06-07 05:55] VITALS: BP 152/76
[2021-06-07] MEDS ORDERED: CLOPIDOGREL BISULFATE 75 MG TABLET PO SCH (08:00)
[2021-06-07 11:06] VITALS: BP 113/70
[2021-06-07] MEDS ORDERED: CLOP75TA57 PO (12:45)
--- NOTE | 2021-06-07 12:47 | HP ---
HISTORY OF PRESENT ILLNESS: The patient is a 80-year-old female patient who was brought to the Emergency Room by a private vehicle with her who was concerned that the patient might have a stroke. He reported at approximately 1315, the patient seemed to become more confused and was unable to answer questions and reportedly had some slurred speech. She does have a prior history of TIAs and CVAs. He denied that she has any trauma, fever or chills. Denied any exposure to COVID-19. The patient has received both Moderna COVID-19 vaccinations. The patient herself is extremely demented, does not really give any useful information. The patient was extensively investigated in the Emergency Room, has had lab work as well as imaging studies and was admitted with diagnosis of TIA, although her symptoms apparently had resolved by the time she arrived to the Emergency Room. PAST MEDICAL HISTORY: Significant for dementia, hypothyroidism, hyperlipidemia, overactive bladder, history of TIAs and CVAs. PAST SURGICAL HISTORY: Significant for left knee arthroscopic surgery and tonsillectomy. ALLERGIES: ACCORDING TO HER DAUGHTER SHE IS ALLERGIC TO PENICILLIN. MEDICATIONS: She is currently on the following medication: She is on Aricept 20 mg at bedtime, atorvastatin 10 mg at bedtime, aspirin 81 mg once a day, levothyroxine sodium 75 mcg once a day and Detrol-LA 4 mg daily. FAMILY HISTORY: She has 1 younger brother who has cancer and 1 sister older apparently has diabetes, but otherwise healthy. SOCIAL HISTORY: She is . She has 2 daughters. She is an ex-smoker, quit about 15 years ago. Does not drink any alcohol. She is currently living with her . REVIEW OF SYSTEMS: As per history of present illness. PHYSICAL EXAMINATION: GENERAL: On arrival to the Emergency Room, the patient looked well and was clearly in no apparent respiratory distress. She was somewhat pale, not jaundiced or cyanosed. No lymphadenopathy, no thyromegaly, no jugular venous distention. No limb edema. VITAL SIGNS: Her heart rate on arrival was 66, blood pressure 97/52, temperature 97.7, respiratory rate was 18 and oxygen saturation was 99% on room air. HEAD, EYES, EARS, NOSE, AND THROAT: Showed she is normocephalic, atraumatic. NECK: Supple. HEART: Normal first and second heart sounds. No gallop, rub or murmur. CHEST: Clear to auscultation. No crepitation or rhonchi. ABDOMEN: Distended, soft, nontender. NEUROLOGIC: She is demented without any obvious lateralizing sign. LABORATORY DATA: On arrival showed a white cell count 5600, hemoglobin 11.7, hematocrit 35, MCV 108 and platelet count 309,000 with normal manual differential. Her serum sodium was 140, potassium 3.6, chloride 102, bicarbonate 29, anion gap of 9, BUN 15, creatinine 0.9. Estimated GFR was 60 mL per minute. Her glucose was 89, calcium was 9.2. Total bilirubin, AST, ALT, alkaline phosphatase were normal. Total protein was 8.3, albumin was 4. Her troponin was less than 0.07. Her prothrombin time, INR and APTT were all within normal range. Urinalysis showed the urine was yellow, cloudy with a pH of 6, specific gravity of 1.020. The urine was negative for glucose, ketones, blood, nitrite. There were 1-2 rbc's, 5-10 wbc's and many bacteria. Her chest x-ray showed no evidence of acute cardiopulmonary process and a CT scan of the head showed no acute intracranial finding, extensive cerebral white matter changes, most probably due to chronic small vessel disease in a patient of this age and cerebellar volume loss. ASSESSMENT AND PLAN: This is a 80-year-old female patient who was admitted with what seemed to be an altered mental status and transient ischemic attack and slurring of speech that has resolved. She apparently was seen by Dr. Weaver also and Plavix was added as she has been on aspirin before and had multiple transient ischemic attacks. BLANCHE/NYDIA DR: Yanira TID: [id number]
--- NOTE | 2021-06-07 12:53 | DISCH ---
HOME HEALTH DISCHARGE/MEDS DISCHARGE INFORMATION: Discharge Date: Jun 07, 2021 Final Diagnosis: Problems Medical Problems: (1) Dementia Status: Acute (2) TIA (transient ischemic attack) Status: Acute Condition on Discharge: Stable CODE STATUS: Code Status: Full HOME HEALTH: Face to Face: I certify this patient is under my care and that I, or a nurse practitioner or physician's blacksmith assistant working with me, had a face to face encounter that meets the physician face to face encounter requirements with this patient on 06/07/2021 Medical Condition(s): Other Usp For: Medication Management Physical Therapy For: Evalulation/Treatment Occupational Therapy For: Evaluation/Treatment POST DISCHARGE ORDERS: Activity Instructions for Disc: Activity as tolerated DIET AFTER DISCHARGE: Regular CERTIFICATION STATEMENT: Certification Statement: Based on the above finding, I certify that this patient is confined to the home and needs intermittent half-way care, physical therapy and/or speech therapy, or continues to need occupational therapy.~ This patient is under my care, and I have initiated the establishment of the plan of care.~ This patient will be followed by myself or a community physician who will periodically review the plan of care. DISCHARGE MEDICATIONS: Home Meds Active Scripts Fluconazole (DIFLUCAN) 100 Mg Tablet, 100 MG PO DAILY for post antibiotic for 3 Days, #3 TAB Prov:MABLE IRELAND MD 09/17/20 Cephalexin (KEFLEX) 750 Mg Capsule, 500 MG PO TID for UTI for 7 Days, #14 CAP Prov:MABLE IRELAND MD 09/17/20 Reported Medications Atorvastatin Calcium (ATORVASTATIN CALCIUM) 10 Mg Tablet, 10 MG PO QHS for FOR CHOLESTEROL LAST DOSE GIVEN: DATE: YESTERDAY TIME: BEDTIME NEXT DOSE DUE: DATE: TODAY TIME: BEDTIME 02/12/18 Donepezil Hcl (DONEPEZIL HCL) 10 Mg Tab.rapdis, 20 MG PO HS for Memory LAST DOSE GIVEN: DATE: YESTERDAY TIME: BEDTIME NEXT DOSE DUE: DATE: TODAY TIME: BEDTIME 02/12/18 Tolterodine Tartrate (DETROL LA) 4 Mg Cap.er.24h, 4 MG PO DAILY for Overactive bladder AUTO-SUBSTITUTED FOR DITROPAN LAST DOSE GIVEN: DATE: TODAY TIME: 2:00 PM NEXT DOSE DUE: DATE: TOMORROW TIME: AM 08/16/15 Aspirin (ASPIRIN) 81 Mg Tab.chew, 81 MG PO DAILY for Heart Health LAST DOSE GIVEN: DATE: TODAY TIME: AM NEXT DOSE DUE: DATE: TOMORROW TIME: AM 08/16/15 Levothyroxine Sodium (SYNTHROID) 75 Mcg Tablet, 75 MCG PO DAILYAC for Thyroid Supplement LAST DOSE GIVEN: DATE: TODAY TIME: AM NEXT DOSE DUE: DATE: TOMORROW TIME: AM 08/16/15 JUAN LEACH MD Jun 07, 2021 12:53
--- NOTE | 2021-06-07 12:58 | DS ---
DATE OF DISCHARGE: 06/07/2021 HOSPITAL COURSE: The patient is a 80-year-old female patient who was brought to the Emergency Room by her with slurring of speech and altered mental status. The patient was apparently more confused, and there was concern that she might have another TIA given the fact that she has prior TIAs and CVAs and apparently her symptoms have resolved by the time she arrived to the Emergency Room. She was extensively investigated with lab work and imaging studies. A CT scan was unremarkable except for cerebral atrophy and microvascular disease. All her other lab works are well within acceptable range. I did speak with her daughter and apparently the patient is demented, very weak and unsteady on her feet and has multiple falls. She refused to use the walker and uses furniture and requires assistance for most of her activities of daily living, except that she is able to feed herself. PHYSICAL EXAMINATION: GENERAL: When I saw her this morning, she was resting slightly propped up in bed, no apparent distress. She was somewhat pale, not jaundiced or cyanosed. No lymphadenopathy, no thyromegaly, no jugular venous distention. No lower limb edema. VITAL SIGNS: Her heart rate was 73, blood pressure is 113/70, temperature was 98, respiratory rate was 18 and oxygen saturation was 98% on room air. The rest of clinical exam is stable. DISCHARGE MEDICATIONS: She was discharged home with home health to continue on Plavix 75 mg once a day, aspirin 81 mg once a day, atorvastatin 10 mg at bedtime, Aricept 10 mg once a day, levothyroxine sodium 75 mcg once a day and Detrol LA 4 mg daily. FINAL DISCHARGE DIAGNOSES: Transient ischemic attack, symptoms resolved; hypothyroidism; hyperlipidemia; overactive bladder; and dementia. ANANTH RAMÍREZ: Yanira TID: [id number]
[2021-06-07] MEDS ORDERED: ASPIRIN CHEWABLE 81 MG TABLET. PO SCH (13:30)
[2021-06-07] MEDS ORDERED: ATORVASTATIN CALCIUM 10 MG TABLET. PO SCH (21:00)
[2021-06-07] MEDS ORDERED: OXYBUTYNIN CHLORIDE 5 MG TABLET PO SCH (21:00)
[2021-06-07] MEDS ORDERED: DONEPEZIL HCL 10 MG TABLET PO SCH (21:00)
--- NOTE | 2021-06-08 04:26 | CONS ---
DATE OF CONSULTATION: 06/07/2021 NEUROLOGY CONSULTATION REFERRING PHYSICIAN: Dr. Greenfield. REASON FOR CONSULTATION: Rule out TIA versus stroke. HISTORY OF PRESENT ILLNESS: This is a 80-year-old right-handed female who was admitted through Emergency Room on 06/06/2021 on account of a sudden onset of confusion and slurred speech. She was brought by her to rule out TIA versus stroke. It was reported that at 1:15, the patient became confused and disoriented and unable to answer the questions along with slurred speech. In the emergency room, the patient was evaluated extensively and head CT scan revealed generalized cortical atrophy with chronic small vessel ischemic changes, otherwise no acute intracranial process. The patient was admitted for a possible transient ischemic attack. The patient denies any headaches, chest pain, shortness of breath, palpitation, dysarthria, dysphagia or vertigo. PAST MEDICAL HISTORY: Significant for hyperlipidemia, hypothyroidism, dementia, overactive bladder, stroke, and TIA. PAST SURGICAL HISTORY: Positive for tonsillectomy and left knee arthroscopic surgeries. FAMILY HISTORY: Noncontributory; however, the older sister had diabetes and younger brother had cancer. SOCIAL HISTORY: The patient is . She has 2 daughters. She denies smoking, alcohol drinking or illicit drug use. CURRENT HOME MEDICATIONS: Aricept 20 mg at bedtime, Lipitor 10 mg at bedtime, aspirin 81 mg daily, levothyroxine 75 mcg daily and Detrol LA 4 mg daily. ALLERGIES: PENICILLIN. REVIEW OF SYSTEMS: A 10-point review of system was performed as mentioned above in history of present illness. PHYSICAL EXAMINATION: GENERAL: Well-developed, well-nourished female in no acute distress. She weighs 51.2 kilos. VITAL SIGNS: Blood pressure 115/78, respiratory rate 18, pulse is 73, temperature 98, and oxygen saturation is 98% on room air. HEENT: Normocephalic, atraumatic, otherwise unremarkable. NECK: Supple. Negative for carotid bruit, lymphadenopathy or thyromegaly. LUNGS: Clear to A and P. CARDIOVASCULAR: Regular rate and rhythm. Normal S1, S2. There is no S3, S4 or murmur. ABDOMEN: Soft. Bowel sounds positive. EXTREMITIES: Negative for cyanosis, clubbing or pedal edema. NEUROLOGIC: Mental Status: The patient is alert and oriented x 2. The speech is fluent. There is no language dysfunction. Memory, judgment and abstracting thinking are fair. The patient denies hallucination or delusion. Cranial nerves: Visual ellison are full. The pupils are reactive to light and accommodation. The extraocular movements are intact. There is no nystagmus. There is no facial motor or sensory deficits. Hearing is intact bilaterally. The palate is elevated symmetrically. Sternocleidomastoid muscles are powerful bilaterally. The patient shrugs her shoulders symmetrically, protrudes her tongue in the midline without fasciculation or atrophy. Motor Examination: No focal muscle bulk wasting. The tone is normal. The strength is 4/5 throughout. Sensory examination revealed normal pinprick, light touch, vibratory and position senses. Deep tendon reflexes were symmetric and hypoactive with absent Achilles responses. Gait: The patient uses a walker for ambulation. LABORATORY DATA: CBC revealed blood cells of 5.6 thousand, hemoglobin 11.7, hematocrit 35, platelet count is 309,000. Chemistry revealed sodium of 140, potassium 3.6, chloride 102, CO2 of 29, BUN 15, creatinine 0.9, glucose 89, calcium 9.2. Liver enzymes are normal. Troponin level is normal. Lipid profile is normal. Urinalysis is negative for urinary tract infections. COVID rapid and PCR test are negative. DIAGNOSTIC DATA: Nonenhanced head CT scan as described above in the history of present illness, otherwise unremarkable and chest x-ray revealed no evidence of acute cardiopulmonary process. IMPRESSION: 1. Sudden onset of confusion with slurred speech -- resolved, likely represent a transient ischemic attack with a normal neurological examination except for mental status. 2. Multiple medical problems include hypothyroidism, hyperlipidemia. 3. Dementia. RECOMMENDATION: 1. Continue with current management. Continue with current medical care initiated by Dr. Greenfield including Plavix and aspirin 81 mg along with current home medications. The patient is neurologically stable. 2. Carotid Doppler study if the patient has not had any such study in the last year or so. JOE/CORTNEY DR: Ari TID: [id number]
[2021-06-08] MEDS ORDERED: LEVOTHYROXINE 75 MCG TABLET PO SCH (07:30)
[2021-06-13] MEDS ORDERED: AMLO-187 PO (15:03)
[2021-06-13] MEDS ORDERED: CEFD300C PO (15:03)
== END 2021-06-07 14:55 | disposition home or self-care (01) ==
LOC: ER 13:55 → 1 SOUTH 15:36 → INTOOBSV 15:36
PROVIDERS: ADMIT Hospitalist; ATTEND Hospitalist
DX: G45.9 Transient cerebral ischemic attack, unspecified (principal); Z20.822 Contact with and (suspected) exposure to COVID-19; E03.9 Hypothyroidism, unspecified; E78.5 Hyperlipidemia, unspecified; I10 Essential (primary) hypertension; R47.81 Slurred speech; N32.81 Overactive bladder; E78.00 Pure hypercholesterolemia, unspecified; F03.91 Unspecified dementia, unspecified severity, with behavioral disturbance; R29.6 Repeated falls; R41.82 Altered mental status, unspecified; Z79.02 Long term (current) use of antithrombotics/antiplatelets; Z79.82 Long term (current) use of aspirin; Z90.49 Acquired absence of other specified parts of digestive tract; Z79.899 Other long term (current) drug therapy; Z98.890 Other specified postprocedural states; Z87.891 Personal history of nicotine dependence; Z79.890 Hormone replacement therapy; Z86.73 Personal history of transient ischemic attack (TIA), and cerebral infarction without residual deficits; Z98.51 Tubal ligation status
CPT/HCPCS: 36415; 70450; 71045; 80053; 80061; 81001; 82140; 82553; 82947; 83605; 84484; 85025; 85610; 85730; 87077; 87086; 87186; 87426; 93005; 96374; 97162; 97166; 97530; 99291; G0378; J3490; U0003; G0379

== ENCOUNTER 2021-06-10 15:59 | Observation (INO) | payer MEDICARE, MEDICAID ==
[~2021-06-10] VITALS: Ht 157.5 cm; Wt 51.0 kg
[~2021-06-10 15:59] MED LIST changes: +CLOP75TA57 PO
--- NOTE | 2021-06-10 16:13 | PHYS DOC ---
Past History Past Medical History: CVA, Dementia, High Cholesterol, Hypertension, Hypothyroid, TIA, UTI (JOSE MILES DO) Past Surgical History: Tubal ligation, Other (JOSE MILES DO) Alcohol Use: None Drug Use: None (JOSE MILES DO) General Adult HPI: HPI: 80 yo F past medical history advanced dementia, CVA/TIA on Plavix and aspirin, hyperlipidemia, overactive bladder and hypothyroidism, presents the ED brought in by EMS as a code stroke. Patient was found unresponsive in the street. Unable to attain history due to patient's medical condition/advanced dementia. EMR was reviewed and patient was discharged a few days ago, admitted for similar presentation. (JOSE MILES DO) Review of Systems: Review of Systems: Review of systems unobtainable due to patient's medical condition/advanced dementia (JOSE MILES DO) Allergies: Allergies: Allergies Coded Allergies Type Severity Reaction Last Updated Verified No Known Drug Allergies 02/12/18 No (JOSE MILES DO) Physical Exam: PE: Constitutional: In no acute distress, afebrile HENT: Normocephalic, atraumatic, eyebrows are drawn on Eyes: PERRLA, EOMI, conjunctiva normal, no discharge. Neck: supple, no midline step-offs Cardiovascular: S1/2 present, regular rhythm Lungs & Thorax: bilateral equal chest rise, no tachypnea or increased work of breathing Abdomen: soft, no tenderness, Skin: Warm, dry, no erythema, no rash. [] Back: No midline spinal step offs or tenderness, no CVA tenderness. [] Extremities: No tenderness, no cyanosis, no lower extremity edema, small 0.5cm scab over medial right leg-has bandage applied (old injury) Neurologic: [id number] = GCS10, opens eyes to sternal rub and moves her lips/moans Psychologic: No agitation, calm mood (JOSE MILES DO) EKG: EKG: Sinus and 62 bpm, no axis deviation, normal intervals, T wave inversion aVL, no ST elevation or ST depression (JOSE MILES DO) Radiology/Procedures: Radiology/Procedures: []IMAGING REPORT Signed PATIENT: MARBIN GUTIERREZ LACCOUNT: [id number] : 1940 LOCATION: ER AGE: 80 SEX: F EXAM STATUS: REG ER ORD. PHYSICIAN: JOSE MILES DO REASON: ams, repeat scan after pt moved, did not reinjected PROCEDURE: CT ANGIOGRAPHY HEAD AND NECK CTA head and CTA neck with contrast History: Acute mental status change Technique: Axial helical images were obtained of the head and neck after the intravenous administration of 100 mL of Omni 350 IV contrast. Multiplanar reconstruction was performed on an independent work station including MIP imaging and 3D angiographic imaging. Comparison: none CTA head with and without contrast. Findings: Brain: The spencer and white matter appears symmetrical. There is no mass effect, extra-axial fluid collections or hydrocephalus. There is no gross bleed. Distal carotid arteries: normal caliber Vertebral basilar system normal Major cerebral arteries: normal Impression: no acute findings end impression CTA neck with contrast: Findings: Aortic arch and origin of great vessels: normal Common carotid arteries: There is calcification at the level of bulb bilaterally with less than 50 percent stenosis of the origin the left internal carotid artery. Internal carotid arteries: Right: normal Left: normal Vertebral basilar system normal Impression: No significant stenosis. End impression These results were called to the Emergency Department and verified by read back at 5:45 PM. QRS Compliance Statement - Stenosis calculations for CT, MR and conventional angiography are based upon measurement of the distal ICA diameter in accordance with the NASCET methodology. Stenosis calculations for carotid ultrasound studies are derived from validated velocity criteria which are known to correlate with the NASCET methodology. PQRS Compliance Statement: One or more of the following individualized dose reduction techniques were utilized for this examination: 1. Automated exposure control 2. Adjustment of the mA and/or kV according to patient size 3. Use of iterative reconstruction technique Electronically signed by: Laila Zhang III, MD (06/10/2021 5:48 PM) [facility] DICTATED AND SIGNED BY: LAILA ZHANG III, MD DATE: 06/10/21 173 CC: MARIANO GOETZ; JOSE MILES DO ~MTH0 0 IMAGING REPORT Signed PATIENT: MARBIN GUTIERREZ LACCOUNT: [id number] : 1940 LOCATION: ER AGE: 80 SEX: F EXAM STATUS: REG ER ORD. PHYSICIAN: JOSE MILES DO REASON: ams PROCEDURE: CT CODE STROKE HEAD WO CT Head W/O Contrast: History: Reason: ams / Spl. Instructions: / History: Comparison: June 06, 2021 Axial images were obtained without contrast. There is moderate diffuse atrophy. There is no mass effect, extraaxial fluid collections or hydrocephalus. There is no gross bleed. Marked diffuse periventricular and subcortical white matter hypoattenuation is seen. There is no focal loss of spencer-white matter distinction to suggest acute ischemia, i.e. stroke. There is calcification of the basal ganglia bilaterally. Impression: No acute findings. End impression These results were called to the Emergency Department and verified by read back at 4:19 PM. RS Compliance Statement: One or more of the following individualized dose reduction techniques were utilized for this examination: 1. Automated exposure control 2. Adjustment of the mA and/or kV according to patient size 3. Use of iterative reconstruction technique Electronically signed by: Laila Zhang III, MD (06/10/2021 4:21 PM) [facility] DICTATED AND SIGNED BY: LAILA ZHANG III, MD DATE: 06/10/21 161 CC: MARIANO GOETZ; JOSE MILES DO ~MTH0 0 IMAGING REPORT Signed PATIENT: MARBIN GUTIERREZ LACCOUNT: [id number] : 1940 LOCATION: ER AGE: 80 SEX: F EXAM STATUS: REG ER ORD. PHYSICIAN: JOSE MILES DO REASON: ams PROCEDURE: PORTABLE CHEST 1V EXAM: CHEST 1 VIEW History: Altered mental status COMPARISON: None available. TECHNIQUE: Single portable radiograph of the chest FINDINGS: The cardiac silhouette is unremarkable. The lungs are clear bilaterally. The costophrenic sulci are clear and well demarcated. IMPRESSION: No radiographic evidence of an acute cardiopulmonary process. Electronically signed by: Nelson Rothman MD (06/10/2021 5:00 PM) [id number] DICTATED AND SIGNED BY: NELSON ROTHMAN MD DATE: 06/10/21 1656 CC: MARIANO GOETZ; JOSE MILES DO ~MTH0 0 (JOSE MILES DO) Heart Score: C/O Chest Pain: No Risk Factors: Risk Factors: DM, Current or recent (<one month) smoker, HTN, HLP, family history of CAD, obesity. Risk Scores: Score 0 - 3: 2.5% MACE over next 6 weeks - Discharge Home Score 4 - 6: 20.3% MACE over next 6 weeks - Admit for Clinical Observation Score 7 - 10: 72.7% MACE over next 6 weeks - Early Invasive Strategies (JOSE MILES DO) Course & Med Decision Making: Course & Med Decision Making Pertinent Labs and Imaging studies reviewed. (See chart for details) On re- evaluation patient awake, alert and talking. Patient states "I don't feel good, I need food." Zofran given. Daughter latter present in ed and pt was last seen sitting outside on the edge of a truck bed in her driveway. Neighbors informed she wasn't down on the driveway. Daughter states pt had just been drinking a frappe. No known alcohol use. Syncope on ddx, concerning given plavix/asa. Due to shift change patient was signed out to oncoming physician Dr. Ceballos for further medical evaluation and disposition. Patient pending CT results and urinalysis. (JOSE MILES DO) Course & Med Decision Making Patient care handed off to me at checkout pending disposition. Patient is a 80-year-old female who presented after a syncopal episode who has advanced dementia. Patient lives at home with her who is unable to take care of himself and her. Daughter does come to visit every day or every other day to check on them but is not there all the time. States she supposed to be using a walker and is not. States she was just discharged from the hospital a few days ago for similar incidents. Patient's laboratory analysis and imaging relatively unremarkable however given advanced dementia, and frailness of patient and higher risk of falling and nobody at home to take care of her it was recommended to family that she be admitted to the hospital for continued evaluation, discussions about PT OT and placement in a [facility]ci facility with 24-hour care. Family grateful, verbalized understanding and agreed with plan of admission. (KAMERON CEBALLOS MD) Dragon Disclaimer: Dragon Disclaimer: This electronic medical record was generated, in whole or in part, using a voice recognition dictation system. (JOSE MILES DO) Departure Departure: Impression: Primary Impression: AMS (altered mental status) Additional Impressions: Failure to thrive Advanced dementia Disposition: ADMITTED INPATIENT Admitting Physician: Dong Greenfield (KAMERON CEBALLOS MD) Referrals: MARIANO GOETZ (PCP) JOSE MILES DO Jun 10, 2021 16:13 KAMERON CEBALLOS MD Jun 10, 2021 19:19
[2021-06-10] MEDS ORDERED: IV NORMAL SALINE 1,000ML 1,000 ML IV ONE (16:15)
[2021-06-10] MEDS ORDERED: NALOXONE 2 MG/2 ML DISP.SYRIN. IV ONE (16:15)
--- NOTE | 2021-06-10 16:23 | RAD ---
CT Head W/O Contrast: History: Reason: ams / Spl. Instructions: / History: Comparison: June 06, 2021 Axial images were obtained without contrast. There is moderate diffuse atrophy. There is no mass effect, extraaxial fluid collections or hydrocep halus. There is no gross bleed. Marked diffuse periventricular and subcortical white matter hypoatte nuation is seen. There is no focal loss of spencer-white matter distinction to suggest acute ischemia, i.e. stroke. There is calcification of the basal ganglia bilaterally. Impression: No acute findings. End impression These results were called to the Emergency Department and verified by read back at 4:19 PM. PQRS Compliance Statement: One or more of the following individualized dose reduction techniques were utilized for this examinat ion: 1. Automated exposure control 2. Adjustment of the mA and/or kV according to patient size 3. Use of iterative reconstruction technique Electronically signed by: James Smith III, MD (06/10/2021 4:21 PM) [facility]
[2021-06-10] MEDS ORDERED: IOHEXOL 350 MG/ML 100 ML VIAL. IV ONE (16:30)
--- NOTE | 2021-06-10 16:46 | EKG ---
[address] [address] Test Date: 2021-06-10 Test Time: 16:16:01 Pat Name: MARBIN GUTIERREZ Department: Room: Gender: F Testing Analyst: JUSTIN : 1940 Requested By: JOSE MILES Order Number: [id number] Reading MD: Albert Garcia Measurements Intervals [place] Rate: 62 P: 47 ME: 146 QRS: 29 QRSD: 76 T: 48 QT: 424 QTc: 433 Interpretive Statements SINUS RHYTHM NORMAL ECG RI6.02 Compared to ECG 06/06/2021 14:11:08 No significant changes Electronically Signed On 06-11-2021 16:38:24 CDT by Albert Garcia
--- NOTE | 2021-06-10 17:03 | RAD ---
EXAM: CHEST 1 VIEW History: Altered mental status COMPARISON: None available. TECHNIQUE: Single portable radiograph of the chest FINDINGS: The cardiac silhouette is unremarkable. The lungs are clear bilaterally. The costophrenic sulci are clear and well demarcated. IMPRESSION: No radiographic evidence of an acute cardiopulmonary process. Electronically signed by: Nelson Rothman MD (06/10/2021 5:00 PM) [id number]
[2021-06-10 17:06] LABS: BASO # 0.1 x10^3/uL (0.0-0.2); BASO % 1 % (0-3); EOS # 0.2 x10^3/uL (0.0-0.7); EOS % 4 % (0-3); HEMATOCRIT 38.8 % (36.0-47.0); HEMOGLOBIN 12.9 g/dL (12.0-15.5); LYMPH # 1.1 x10^3/uL (1.0-4.8); LYMPH % 25 % (24-48); MEAN CORPUSCULAR HEMOGLOBIN 36 pg (25-35); MEAN CORPUSCULAR HGB CONC 33 g/dL (31-37); MEAN CORPUSCULAR VOLUME 109 fL (79-100); MONO # 0.3 x10^3/uL (0.0-1.1); MONO % 7 % (0-9); NEUT # 2.9 x10^3uL (1.8-7.7); NEUT % 63 % (31-73); PLATELET COUNT 337 x10^3/uL (140-400); RED BLOOD COUNT 3.56 x10^6/uL (3.50-5.40); RED CELL DISTRIBUTION WIDTH 14.6 % (11.5-14.5); WHITE BLOOD COUNT 4.6 x10^3/uL (4.0-11.0)
[2021-06-10 17:11] LABS: BARBITURATES NEG (NEG); BENZODIAZEPINES NEG (NEG); CANNABINOIDS NEG (NEG); COCAINE NEG (NEG); METHADONE NEG (NEG); OPIATES NEG (NEG); PHENCYCLIDINE NEG (NEG)
[2021-06-10 17:13] LABS: AMPHETAMINE/METHAMPHETAMINE NEG (NEG)
[2021-06-10 17:19] LABS: CALCIUM 9.4 mg/dL (8.5-10.1); CREATININE 1.1 mg/dL (0.6-1.0); MAGNESIUM 2.5 mg/dL (1.8-2.4); POTASSIUM 3.7 mmol/L (3.5-5.1)
[2021-06-10 17:29] LABS: ETHANOL < 10 mg/dL (0-10); SALIC < 2.8 mg/dL (2.8-20.0)
[2021-06-10 17:30] LABS: ACETAMIN < 2.0 mcg/mL (10-30)
[2021-06-10 17:32] LABS: ALBUMIN 4.2 g/dL (3.4-5.0); ALBUMIN/GLOBULIN RATIO 0.9 (1.0-1.7); TOTAL BILIRUBIN 0.2 mg/dL (0.2-1.0); TOTAL PROTEIN 9.1 g/dL (6.4-8.2)
--- NOTE | 2021-06-10 17:50 | RAD ---
CTA head and CTA neck with contrast History: Acute mental status change Technique: Axial helical images were obtained of the head and neck after the intravenous administrati on of 100 mL of Omni 350 IV contrast. Multiplanar reconstruction was performed on an independent wor k station including MIP imaging and 3D angiographic imaging. Comparison: none CTA head with and without contrast. Findings: Brain: The spencer and white matter appears symmetrical. There is no mass effect, extra-axial fluid co llections or hydrocephalus. There is no gross bleed. Distal carotid arteries: normal caliber Vertebral basilar system normal Major cerebral arteries: normal Impression: no acute findings end impression CTA neck with contrast: Findings: Aortic arch and origin of great vessels: normal Common carotid arteries: There is calcification at the level of bulb bilaterally with less than 50 percent stenosis of the ed gin the left internal carotid artery. Internal carotid arteries: Right: normal Left: normal Vertebral basilar system normal Impression: No significant stenosis. End impression These results were called to the Emergency Department and verified by read back at 5:45 PM. QRS Compliance Statement - Stenosis calculations for CT, MR and conventional angiography are based up on measurement of the distal ICA diameter in accordance with the NASCET methodology. Stenosis calcul ations for carotid ultrasound studies are derived from validated velocity criteria which are known to correlate with the NASCET methodology. PQRS Compliance Statement: One or more of the following individualized dose reduction techniques were utilized for this examinat ion: 1. Automated exposure control 2. Adjustment of the mA and/or kV according to patient size 3. Use of iterative reconstruction technique Electronically signed by: James Smith III, MD (06/10/2021 5:48 PM) [facility]
[2021-06-10] MEDS ORDERED: ONDANSETRON PF 4 MG/2 ML VIAL. IVP ONE (18:15)
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
[2021-06-10 18:43] LABS: BILIRUBIN,URINE SMALL (NEG); CLARITY,URINE CLEAR; COLOR,URINE YELLOW; GLUCOSE,URINE NEG (NEG)
[2021-06-10 18:44] LABS: BACTERIA,URINE MANY /HPF (0-FEW); NITRITE,URINE NEG (NEG); UROBILINOGEN,URINE 0.2 mg/dL (0.2 mg/dL)
--- NOTE | 2021-06-10 20:50 | NUR ---
Received pt in stable cond to room 109 via EMS from ED; VSS; confused, oriented to self and place only, cooperative with cares; bed alarm on for safety, siderails up x2, call alarcon in reach.
[2021-06-10 21:23] VITALS: BP 101/65
[2021-06-10 21:53] VITALS: BP 157/71
[2021-06-10 23:00] VITALS: BP 163/57
[2021-06-10] MEDS: ATORVASTATIN CALCIUM 10 MG TABLET. PO SCH (23:22)
[2021-06-10] MEDS: DONEPEZIL HCL 10 MG TABLET PO SCH (23:22)
[2021-06-11 05:27] VITALS: BP 121/68
[2021-06-11] MEDS: LEVOTHYROXINE 75 MCG TABLET PO SCH (05:36)
[2021-06-11 07:12] LABS: BASO # 0.1 x10^3/uL (0.0-0.2); BASO % 1 % (0-3); EOS # 0.2 x10^3/uL (0.0-0.7); EOS % 3 % (0-3); HEMATOCRIT 29.1 % (36.0-47.0); HEMOGLOBIN 9.7 g/dL (12.0-15.5); LYMPH # 1.1 x10^3/uL (1.0-4.8); LYMPH % 19 % (24-48); MEAN CORPUSCULAR HEMOGLOBIN 36 pg (25-35); MEAN CORPUSCULAR HGB CONC 33 g/dL (31-37); MEAN CORPUSCULAR VOLUME 108 fL (79-100); MONO # 0.6 x10^3/uL (0.0-1.1); MONO % 11 % (0-9); NEUT # 3.6 x10^3uL (1.8-7.7); NEUT % 66 % (31-73); PLATELET COUNT 267 x10^3/uL (140-400); RED BLOOD COUNT 2.71 x10^6/uL (3.50-5.40); RED CELL DISTRIBUTION WIDTH 14.6 % (11.5-14.5); WHITE BLOOD COUNT 5.5 x10^3/uL (4.0-11.0)
[2021-06-11 07:23] LABS: CALCIUM 8.5 mg/dL (8.5-10.1); GFR 53.6; POTASSIUM 3.9 mmol/L (3.5-5.1)
[2021-06-11] MEDS: OXYBUTYNIN CHLORIDE 5 MG TABLET PO SCH ×3 (08:59→21:09)
[2021-06-11] MEDS ORDERED: CLOPIDOGREL BISULFATE 75 MG TABLET PO SCH (09:00)
[2021-06-11] MEDS ORDERED: ASPIRIN CHEWABLE 81 MG TABLET. PO SCH (09:00)
[2021-06-11 11:30] VITALS: BP 116/59
[2021-06-11 13:59] VITALS: BP_SYST 123; BP_SYST 156; BP_SYST 162; BP_DIAS 63; BP_DIAS 64; BP_DIAS 72
--- NOTE | 2021-06-11 14:00 | NUR ---
ORTHOSTATIC CHECK BP'S: 123/63 (83)LYING 156/64 (94) SITTING 162/72 (102) STANDING MAP CHANGE OF 19 Addendum: 06/11/21 at 1535 by CASA JEONG RN DR. HANY ANTONY
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
--- NOTE | 2021-06-11 14:01 | NUR ---
PT HAD VERY LARGE AQUAFORM BANDAGE ON HER RIGHT FARIAS. THIS RN TOOK THE UNMARKED BANDAGE OFF AND FOUND ABOUT A DIME SIZED SCAB THAT IS CLOSED. LEFT THE SCAB OPEN TO AIR.
[2021-06-11 14:50] LABS: HEMOGLOBIN 9.8 g/dL (12.0-15.5); RED BLOOD COUNT 2.76 x10^6/uL (3.50-5.40); RED CELL DISTRIBUTION WIDTH 14.6 % (11.5-14.5); WHITE BLOOD COUNT 5.2 x10^3/uL (4.0-11.0)
[2021-06-11 14:57] LABS: CALCIUM 8.5 mg/dL (8.5-10.1); GFR 53.6; POTASSIUM 3.7 mmol/L (3.5-5.1)
--- NOTE | 2021-06-11 15:35 | NUR ---
PT HEMOGLOBIN DROPPED. PHARMACY CONSULTED WITH THIS RN AND DR. LEACH. ORDERED ASA AND PLAVIX D/C AND REPEAT LAB WORK. HEMOGLOBIN ABOUT THE SAME THIS MORNING (LOWER THAN YESTERDAY). PT SLEPT MOST OF THE DAY. PT DOES NOT C/O PAIN. THIS RN SPOKE WITH PT DAUGHTER TODAY.
[2021-06-11 19:20] VITALS: BP 179/79
[2021-06-11 19:46] VITALS: BP 138/78
[2021-06-11] MEDS: ATORVASTATIN CALCIUM 10 MG TABLET. PO SCH (21:09)
[2021-06-11] MEDS: DONEPEZIL HCL 10 MG TABLET PO SCH (21:09)
--- NOTE | 2021-06-11 22:14 | PN ---
DATE: 06/11/2021 SUBJECTIVE: The patient is sitting in her chair, eating her lunch comfortably, in no apparent distress. She is extremely confused and disoriented. She is also somewhat hard of hearing; however, on questioning her, she denied any complaint, in particular denied any pain. Denied any shortness of breath. Denied any dizziness, lightheadedness or vertigo. PHYSICAL EXAMINATION: GENERAL: When I examined her, she looked well and was clearly in no apparent distress. She was pale, somewhat cachectic, but no jaundice, cyanosis or thyromegaly. No jugular venous distention. No limb edema. VITAL SIGNS: Her heart rate was 67, blood pressure was 116/59, temperature was 98.5, respiratory rate was 16 and oxygen saturation was 94% on room air. HEAD, EYES, EARS, NOSE, AND THROAT: Showed normocephalic, atraumatic. NECK: Supple. HEART: Showed normal first and second heart sounds, no gallop, rub or murmur. CHEST: Clear to auscultation, no crepitation or rhonchi. ABDOMEN: Distended, soft, nontender. NEUROLOGIC: She is demented, but without any obvious lateralizing sign. All other cranial nerves intact. She moves extremities without difficulty. She ambulates without assistance or assistive devices. Her intake and output are incompletely recorded. LABORATORY DATA: This morning showed a white cell count 5500, hemoglobin 9.7, hematocrit 29, MCV 108 and platelet count of 267,000. Her chemistry showed a serum sodium 142, potassium 3.9, chloride 110, bicarbonate 25, anion gap of 7, BUN 18, creatinine 1, estimated GFR was 53 mL per minute. Her glucose was 94 and calcium was 8.5. ASSESSMENT: 1. Altered mental status. The patient is demented, but without any obvious lateralizing sign. 2. The patient has multiple other medical problems including hypertension, hyperlipidemia, hypothyroidism, cerebrovascular accident, transient ischemic attack. PLAN: My plan is to order physical and occupational therapy. I will also consult our social media community manager for placement in a halfway facility or long-term care facility. BLANCHE/EKT DR: Yanira TID: [phone]
[2021-06-11 23:10] VITALS: BP 130/63
[2021-06-12] MEDS: LEVOTHYROXINE 75 MCG TABLET PO SCH (05:30)
[2021-06-12 05:36] VITALS: BP 162/76
[2021-06-12] MEDS: OXYBUTYNIN CHLORIDE 5 MG TABLET PO SCH ×3 (09:42→20:51)
[2021-06-12 11:23] VITALS: BP 154/69
[2021-06-12 15:03] VITALS: BP 179/76
[2021-06-12] MEDS ORDERED: amLODIPine BESYLATE 5 MG TABLET PO ONE (17:30)
[2021-06-12 19:50] VITALS: BP 151/75
[2021-06-12] MEDS: DONEPEZIL HCL 10 MG TABLET PO SCH (20:51)
[2021-06-12] MEDS: ATORVASTATIN CALCIUM 10 MG TABLET. PO SCH (20:51)
[2021-06-12 23:24] VITALS: BP 154/78
--- NOTE | 2021-06-13 01:15 | PN ---
DATE: 06/12/2021 SUBJECTIVE: The patient is sitting in her chair comfortably, eating her lunch, in no apparent distress. She is extremely confused and disoriented, somewhat also hard of hearing; however, on questioning her, she denied any complaint, in particular denied any pain, denied any shortness of breath, denied any dizziness, lightheadedness or vertigo. She apparently was seen by the physical therapist, and they recommended that she should be in a senior care long-term care as she has been unable to be consistent in her use of the walker. PHYSICAL EXAMINATION: GENERAL: When I saw her this afternoon, she looked pale, somewhat cachectic, but no jaundice, cyanosis or thyromegaly. No jugular venous distention. No limb edema. VITAL SIGNS: Her heart rate was 61, blood pressure 154/69, temperature was 98.3, respiratory rate was 16 and oxygen saturation was 98%. HEAD, EYES, EARS, NOSE, AND THROAT: Normocephalic, atraumatic. NECK: Supple. HEART: Normal first and second heart sounds, no gallop or murmur. CHEST: Clear to auscultation, no crepitation or rhonchi. ABDOMEN: Distended, soft, nontender. NEUROLOGIC: She is demented, but without any obvious lateralizing sign. Her intake over the last 24 hours was 1400, no output was recorded. LABORATORY DATA: We did actually her H and H yesterday twice, as on admission, her hemoglobin was 12.9, hematocrit 38.8; however, yesterday morning, her hemoglobin was 9.7, hematocrit 29. She was concerned that she might have bled, although she has been extensively imaged and no evidence of any retroperitoneal bleeding. We examined her extensively, and there was no evidence of any bruising, and we repeated her H and H, and her hemoglobin was 9.8, hematocrit 30. ASSESSMENT: 1. Altered mental status. The patient is demented, but without any obvious lateralizing sign. 2. The patient has multiple other medical problems including: A. Hypertension. B. Hyperlipidemia. C. Hypothyroidism. D. Cerebrovascular accident. E. Transient ischemic attack. PLAN: To await the discussion with the family regarding her disposition, as she would probably benefit from being in a long-term care facility, if she is not, she probably needs to go home with home health. ALYSSIA DR: Yanira TID: [phone]
[2021-06-13 05:53] VITALS: BP 171/77
[2021-06-13] MEDS: LEVOTHYROXINE 75 MCG TABLET PO SCH (06:11)
[2021-06-13 08:45] VITALS: BP 202/73
[2021-06-13] MEDS: OXYBUTYNIN CHLORIDE 5 MG TABLET PO SCH (08:53)
[2021-06-13] MEDS ORDERED: amLODIPine BESYLATE 5 MG TABLET PO SCH (09:00)
[2021-06-13 11:06] VITALS: BP 151/67
--- NOTE | 2021-06-13 12:26 | DISCH ---
HOME HEALTH DISCHARGE/MEDS DISCHARGE INFORMATION: Discharge Date: Jun 13, 2021 Final Diagnosis: Problems Medical Problems: (1) Advanced dementia Status: Acute (2) AMS (altered mental status) Status: Acute (3) Failure to thrive Status: Acute Condition on Discharge: Stable CODE STATUS: Code Status: Full HOME HEALTH: Face to Face: I certify this patient is under my care and that I, or a nurse practitioner or physician's financial services assistant working with me, had a face to face encounter that meets the physician face to face encounter requirements with this patient on 06/13/2021 Medical Condition(s): Other Physical Therapy For: Evalulation/Treatment Occupational Therapy For: Evaluation/Treatment Homebound Status Met By: Unsteady balance w/ amb, POST DISCHARGE ORDERS: Activity Instructions for Disc: Activity as tolerated DIET AFTER DISCHARGE: Regular CERTIFICATION STATEMENT: Certification Statement: Based on the above finding, I certify that this patient is confined to the home and needs intermittent fdc care, physical therapy and/or speech therapy, or continues to need occupational therapy.~ This patient is under my care, and I have initiated the establishment of the plan of care.~ This patient will be followed by myself or a community physician who will periodically review the plan of care. DISCHARGE MEDICATIONS: Home Meds Active Scripts Clopidogrel Bisulfate (PLAVIX) 75 Mg Tablet, 1 TAB PO DAILY for tia for 30 Days, #30 TAB 5 Refills Prov:JUAN LEACH MD 06/07/21 Reported Medications Atorvastatin Calcium (ATORVASTATIN CALCIUM) 10 Mg Tablet, 10 MG PO QHS for FOR CHOLESTEROL LAST DOSE GIVEN: DATE: YESTERDAY TIME: BEDTIME NEXT DOSE DUE: DATE: TODAY TIME: BEDTIME 02/12/18 Donepezil Hcl (DONEPEZIL HCL) 10 Mg Tab.rapdis, 20 MG PO HS for Memory LAST DOSE GIVEN: DATE: YESTERDAY TIME: BEDTIME NEXT DOSE DUE: DATE: TODAY TIME: BEDTIME 02/12/18 Tolterodine Tartrate (DETROL LA) 4 Mg Cap.er.24h, 4 MG PO DAILY for Overactive bladder AUTO-SUBSTITUTED FOR DITROPAN LAST DOSE GIVEN: DATE: TODAY TIME: 2:00 PM NEXT DOSE DUE: DATE: TOMORROW TIME: AM 08/16/15 Aspirin (ASPIRIN) 81 Mg Tab.chew, 81 MG PO DAILY for Heart Health LAST DOSE GIVEN: DATE: TODAY TIME: AM NEXT DOSE DUE: DATE: TOMORROW TIME: AM 08/16/15 Levothyroxine Sodium (SYNTHROID) 75 Mcg Tablet, 75 MCG PO DAILYAC for Thyroid Supplement LAST DOSE GIVEN: DATE: TODAY TIME: AM NEXT DOSE DUE: DATE: TOMORROW TIME: AM 08/16/15 Discontinued Scripts Fluconazole (DIFLUCAN) 100 Mg Tablet, 100 MG PO DAILY for post antibiotic for 3 Days, #3 TAB Prov:MABLE IRELAND MD 09/17/20 Cephalexin (KEFLEX) 750 Mg Capsule, 500 MG PO TID for UTI for 7 Days, #14 CAP Prov:MABLE IRELAND MD 09/17/20 JUAN LEACH MD Jun 13, 2021 12:26
[2021-06-13] MEDS ORDERED: CEFD300C PO (15:03)
[2021-06-13] MEDS ORDERED: AMLO-187 PO (15:03)
--- NOTE | 2021-06-13 15:24 | NUR ---
Pt to dc, spoke with Dr Greenfield regarding pt dc meds, pIVx 2 dc'd, tele dc'd. Pt waiting for ride. Attempted to call daughterHailey to go over dc instructions, message left for request of return call.
--- NOTE | 2021-06-13 15:49 | NUR ---
dc instructions reviewed with pt daughter, she is on the way to get pt.
--- NOTE | 2021-06-13 16:46 | NUR ---
pt wheeled out to daughter in car, discharge instructions, education materials and belongings all sent with pt.
== END 2021-06-13 16:30 | disposition home health service (06) ==
LOC: ER 15:59 → 1 SOUTH 19:19 → INTOOBSV 19:19
PROVIDERS: ADMIT Internal Medicine; ATTEND Internal Medicine
DX: F03.90 Unspecified dementia, unspecified severity, without behavioral disturbance, psychotic disturbance, mood disturbance, and anxiety (principal); Z20.822 Contact with and (suspected) exposure to COVID-19; R62.7 Adult failure to thrive; I63.9 Cerebral infarction, unspecified; I10 Essential (primary) hypertension; E03.9 Hypothyroidism, unspecified; G45.9 Transient cerebral ischemic attack, unspecified; E78.00 Pure hypercholesterolemia, unspecified; E78.5 Hyperlipidemia, unspecified; H91.90 Unspecified hearing loss, unspecified ear; N32.81 Overactive bladder; Z86.73 Personal history of transient ischemic attack (TIA), and cerebral infarction without residual deficits; Z68.20 Body mass index [BMI] 20.0-20.9, adult; Z98.51 Tubal ligation status; Z79.899 Other long term (current) drug therapy; Z98.890 Other specified postprocedural states; Z79.02 Long term (current) use of antithrombotics/antiplatelets; Z79.82 Long term (current) use of aspirin
CPT/HCPCS: 36415; 70450; 70496; 70498; 71045; 71250; 74176; 76376; 80048; 80053; 80307; 80329; 81001; 82947; 83605; 83690; 83735; 84443; 84484; 85025; 85027; 85610; 85730; 87040; 87077; 87086; 87186; 87426; 93005; 96361; 96374; 97110; 97116; 97162; 97166; 97535; 99285; G0378; G0480; J2405; J7030; U0003; G0379

== ENCOUNTER 2021-11-09 16:15 | Emergency (ER) | payer OTHER, MEDICAID ==
[~2021-11-09] VITALS: Ht 162.6 cm; Wt 49.3 kg
[~2021-11-09 16:15] MED LIST changes: +AMLO-187 PO; +CEFD300C PO; -CITA40TA5 PO; +CITA40TA6 PO; +DONE-49 PO; -DONE10TA14 PO
[2021-11-09 16:34] VITALS: BP 155/61
--- NOTE | 2021-11-09 16:53 | PHYS DOC ---
Past History Past Medical History: CVA, Dementia, High Cholesterol, Hypertension, Hypothyroid, TIA, UTI Past Surgical History: Tubal ligation Alcohol Use: None Drug Use: None General Adult EDM: Chief Complaint: ALTERED MENTAL STATUS HPI: HPI: 81-year-old female presents via EMS with altered mental status. The patient is not exactly sure why she is here. She tells me that she does "not feel too bad". Her daughter who accompanies her tells me that she has been more sleepy and not getting around as well the last couple of days. She has seemed more altered today than normal. The patient's daughter checks on her daily. She lives with her who is her primary hash slinger. Patient has some baseline dementia. She has a history of UTIs and has had symptoms similar to today with those infections. Patient had a fall early this morning with unknown injury. She also had a fall couple days ago with no injury. Review of Systems: Review of Systems: Constitutional: Denies fever or chills. Fatigue. Eyes: Denies change in visual acuity HENT: Denies nasal congestion or sore throat Respiratory: Denies cough or shortness of breath Cardiovascular: Denies chest pain or edema GI: Denies abdominal pain, nausea, vomiting, bloody stools or diarrhea : Denies dysuria Musculoskeletal: Denies back pain or joint pain Integument: Denies rash Neurologic: Denies headache, focal weakness or sensory changes Endocrine: Denies polyuria or polydipsia Lymphatic: Denies swollen glands Psychiatric: Denies depression or anxiety Allergies: Allergies: Allergies Coded Allergies Type Severity Reaction Last Updated Verified Penicillins Allergy Intermediate 11/09/21 Yes Physical Exam: PE: Constitutional: Well developed, well nourished, thin, no acute distress, non- toxic appearance. [] HENT: Normocephalic, atraumatic, bilateral external ears normal, oropharynx moist, no oral exudates, nose normal. [] Eyes: PERRLA, EOMI, conjunctiva normal, no discharge. [] Neck: Normal range of motion, no tenderness, supple, no stridor. [] Cardiovascular: Heart rate regular rhythm, no murmur [] Lungs & Thorax: Bilateral breath sounds clear to auscultation [] Abdomen: Bowel sounds normal, soft, no tenderness, no masses, no pulsatile masses. [] Skin: Warm, dry, no erythema, no rash. [] Back: No tenderness, no CVA tenderness. [] Extremities: No tenderness, no cyanosis, no clubbing, ROM intact, no edema. [] Neurologic: Alert and oriented X 3, normal motor function, normal sensory function, no focal deficits noted. [] Psychologic: Affect normal, judgement normal, mood normal. [] Current Patient Data: Vital Signs: Vital Signs Date Time Temp Pulse Resp B/P (MAP) Pulse Ox O2 Delivery O2 Flow Rate FiO2 11/09/21 16:34 98.5 68 18 155/61 (92) 98 Room Air EKG: EKG: Sinus rhythm, rate 75, normal axis, no ST elevation or depression. [] Radiology/Procedures: Radiology/Procedures: [] Impressions: CT HEAD AND C-SPINE WO dated 11/09/2021 4:59 PM Indication:Reason: AMS / Spl. Instructions: / History: Comparison: CT head 09/21/2021, CTA neck 06/10/2021. Technique: Helical noncontrast images were performed. Sagittal and coronal reconstructions were obtained. One or more of the following individualized dose reduction techniques were utilized for this examination: 1. Automated exposure control 2. Adjustment of the mA and/or kV according to patient size 3. Use of iterative reconstruction technique Findings: CT head: There is no apparent intracranial hemorrhage or abnormal extra-axial fluid collection. No mass is seen. Calcification is again demonstrated at the basal ganglia bilaterally. Patchy low attenuation of the cerebral white matter appears similar to the previous exam, and is consistent with chronic small vessel ischemic injury. No other area of abnormal density is identified. The ventricles and basilar cisterns are normally positioned. Bone windows show no apparent fracture of the skull or abnormal sinus or mastoid opacification. CT cervical spine: Alignment appears normal. There is some endplate concavity inferiorly at C6 and C7 as well as mild compression suggested at T1 and T3. These all appear chronic compared to the prior CTA. No new loss of vertebral body height or prevertebral soft tissue swelling is seen. There is no apparent fracture line. Intervertebral discs are fairly well maintained except for some narrowing at C3-4 with associated osteophytes. There is no apparent destructive process. Evaluation of the soft tissue components of the canal is limited witho ut intrathecal contrast. No destructive process is seen. IMPRESSION: CT head: No acute abnormality. CT cervical spine: No acute abnormality. Electronically signed by: Cecil Briceno Jr., MD (11/09/2021 5:10 PM) [facility] DICTATED AND SIGNED BY: CECIL BRICENO Jr, MD DATE: 11/09/211700 CC: ABHIJIT HENDERSON DO; MARIANO GOETZ ~MTH0 0 EXAM: XR CHEST 1V 11/09/2021 4:58 PM CLINICAL INDICATION: Altered mental status COMPARISON: Chest radiograph 09/21/2021 TECHNIQUE: AP view of the chest FINDINGS: Heart is normal in size. Lungs are hypoexpanded. No consolidation, pleural effusion, or pneumothorax. There is calcified granuloma in the mid right lung. No acute osseous abnormality. IMPRESSION: No acute cardiopulmonary abnormality. Electronically signed by: Ainsley Lamas MD (11/09/2021 5:02 PM) [id number] DICTATED AND SIGNED BY: AINSLEY LAMAS MD DATE: 11/09/211700 CC: ABHIJIT HENDERSON DO; MARIANO GOETZ ~MTH0 0 Heart Score: C/O Chest Pain: N/A Risk Factors: Risk Factors: DM, Current or recent (<one month) smoker, HTN, HLP, family history of CAD, obesity. Risk Scores: Score 0 - 3: 2.5% MACE over next 6 weeks - Discharge Home Score 4 - 6: 20.3% MACE over next 6 weeks - Admit for Clinical Observation Score 7 - 10: 72.7% MACE over next 6 weeks - Early Invasive Strategies Course & Med Decision Making: Course & Med Decision Making Pertinent Labs and Imaging studies reviewed. (See chart for details) EKG is unremarkable. Head CT is negative for acute findings. Chest x-ray is negative for acute findings. Patient's labs are significant for a hemoglobin of 9.8. The patient has had similar hemoglobins in the past. No obvious source of bleeding. The patient's urinalysis is negative for infection. Her KUB does not show signs of obstruction. She does have moderate stool burden. I have advised MiraLAX therapy. The patient does not meet any specific criteria for admission. She is stable for discharge at this time. [] Dragon Disclaimer: Dragon Disclaimer: This electronic medical record was generated, in whole or in part, using a voice recognition dictation system. Departure Departure: Impression: Primary Impression: Altered mental state Additional Impression: Constipation Disposition: 01 HOME / SELF CARE / HOMELESS Condition: STABLE Referrals: MARIANO GOETZ (PCP) Patient Instructions: Altered Mental Status ABHIJIT HENDERSON DO Nov 09, 2021 16:53
--- NOTE | 2021-11-09 17:05 | RAD ---
EXAM: XR CHEST 1V 11/09/2021 4:58 PM CLINICAL INDICATION: Altered mental status COMPARISON: Chest radiograph 09/21/2021 TECHNIQUE: AP view of the chest FINDINGS: Heart is normal in size. Lungs are hypoexpanded. No consolidation, pleural effusion, or pn eumothorax. There is calcified granuloma in the mid right lung. No acute osseous abnormality. IMPRESSION: No acute cardiopulmonary abnormality. Electronically signed by: Ainsley Lamas MD (11/09/2021 5:02 PM) [id number]
--- NOTE | 2021-11-09 17:13 | RAD ---
CT HEAD AND C-SPINE WO dated 11/09/2021 4:59 PM Indication:Reason: AMS / Spl. Instructions: / History: Comparison: CT head 09/21/2021, CTA neck 06/10/2021. Technique: Helical noncontrast images were performed. Sagittal and coronal reconstructions were obtai scott. One or more of the following individualized dose reduction techniques were utilized for this examinat ion: 1. Automated exposure control 2. Adjustment of the mA and/or kV according to patient size 3. Use of iterative reconstruction technique Findings: CT head: There is no apparent intracranial hemorrhage or abnormal extra-axial fluid collection. No ma ss is seen. Calcification is again demonstrated at the basal ganglia bilaterally. Patchy low attenuat ion of the cerebral white matter appears similar to the previous exam, and is consistent with chronic small vessel ischemic injury. No other area of abnormal density is identified. The ventricles and ba silar cisterns are normally positioned. Bone windows show no apparent fracture of the skull or abnorm al sinus or mastoid opacification. CT cervical spine: Alignment appears normal. There is some endplate concavity inferiorly at C6 and C7 as well as mild compression suggested at T1 and T3. These all appear chronic compared to the prior C TA. No new loss of vertebral body height or prevertebral soft tissue swelling is seen. There is no ap parent fracture line. Intervertebral discs are fairly well maintained except for some narrowing at C3 -4 with associated osteophytes. There is no apparent destructive process. Evaluation of the soft tiss ue components of the canal is limited without intrathecal contrast. No destructive process is seen. IMPRESSION: CT head: No acute abnormality. CT cervical spine: No acute abnormality. Electronically signed by: Sachin Briceno Jr., MD (11/09/2021 5:10 PM) [facility]
[2021-11-09 17:28] LABS: BASO # 0.1 x10^3/uL (0.0-0.2); BASO % 2 % (0-3); EOS # 0.3 x10^3/uL (0.0-0.7); EOS % 6 % (0-3); HEMOGLOBIN 9.8 g/dL (12.0-15.5); LYMPH # 1.1 x10^3/uL (1.0-4.8); LYMPH % 26 % (24-48); MEAN CORPUSCULAR HEMOGLOBIN 36 pg (25-35); MEAN CORPUSCULAR HGB CONC 34 g/dL (31-37); MEAN CORPUSCULAR VOLUME 107 fL (79-100); MONO # 0.6 x10^3/uL (0.0-1.1); MONO % 15 % (0-9); NEUT # 2.1 x10^3uL (1.8-7.7); NEUT % 51 % (31-73); PLATELET COUNT 303 x10^3/uL (140-400); RED BLOOD COUNT 2.71 x10^6/uL (3.50-5.40); RED CELL DISTRIBUTION WIDTH 15.4 % (11.5-14.5); WHITE BLOOD COUNT 4.1 x10^3/uL (4.0-11.0)
[2021-11-09 17:30] LABS: CALCIUM 8.8 mg/dL (8.5-10.1); GFR 53.5; POTASSIUM 3.6 mmol/L (3.5-5.1)
[2021-11-09 17:36] LABS: ALBUMIN 3.6 g/dL (3.4-5.0); ALBUMIN/GLOBULIN RATIO 0.9 (1.0-1.7); TOTAL BILIRUBIN 0.2 mg/dL (0.2-1.0); TOTAL PROTEIN 7.4 g/dL (6.4-8.2)
[2021-11-09 17:47] LABS: CLARITY,URINE CLEAR; COLOR,URINE YELLOW; GLUCOSE,URINE NEG (NEG); NITRITE,URINE NEG (NEG); RBC,URINE OCC /HPF (0-2); UROBILINOGEN,URINE 0.2 mg/dL (0.2 mg/dL)
[2021-11-09 17:48] LABS: BACTERIA,URINE 0 /HPF (0-FEW); SQUAMOUS EPITHELIAL CELL,UR MOD /LPF
--- NOTE | 2021-11-09 17:58 | RAD ---
XR ABDOMEN 1V History: Reason: abdominal pain / Spl. Instructions: / History: Technique: Supine views the abdomen. Comparison: None. Findings: Paucity small bowel gas. Air and stool scattered throughout the colon. Imaged lung bases are unremark able. Prior granulous disease within the chest. Lower lumbar spondylosis. Postop changes right proxim al femur. Impression: 1. Nonobstructed bowel gas pattern. Electronically signed by: Denton Cao DO (11/09/2021 5:55 PM) [facility]
[2021-11-09 18:13] LABS: BARBITURATES NEG (NEG); BENZODIAZEPINES NEG (NEG); CANNABINOIDS NEG (NEG); COCAINE NEG (NEG); METHADONE NEG (NEG); OPIATES NEG (NEG); PHENCYCLIDINE NEG (NEG)
[2021-11-09 18:43] LABS: AMPHETAMINE/METHAMPHETAMINE NEG (NEG)
--- NOTE | 2021-11-10 04:24 | EKG ---
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
== END 2021-11-09 18:35 | disposition home or self-care (01) ==
LOC: ER 16:15
DX: R41.82 Altered mental status, unspecified (principal); K59.00 Constipation, unspecified; E78.00 Pure hypercholesterolemia, unspecified; I10 Essential (primary) hypertension; E03.9 Hypothyroidism, unspecified; F03.90 Unspecified dementia, unspecified severity, without behavioral disturbance, psychotic disturbance, mood disturbance, and anxiety; Z86.73 Personal history of transient ischemic attack (TIA), and cerebral infarction without residual deficits; Z87.440 Personal history of urinary (tract) infections; Z88.0 Allergy status to penicillin
CPT/HCPCS: 36415; 70450; 71045; 72125; 74018; 80053; 80307; 81001; 84484; 85025; 93005; 99285

== ENCOUNTER 2021-11-17 16:17 | Emergency (ER) | payer OTHER, MEDICAID ==
[~2021-11-17] VITALS: Ht 152.4 cm; Wt 54.5 kg
[2021-11-17] MEDS ORDERED: IOHEXOL 350 MG/ML 100 ML VIAL. IV ONE (16:30)
--- NOTE | 2021-11-17 16:36 | RAD ---
EXAM: CT Head without IV contrast CLINICAL HISTORY: Reason: stroke / Spl. Instructions: / History: COMPARISON: None. TECHNIQUE: Routine CT of the head without contrast. PQRS compliance statement - One or more of the following individualized dose reduction techniques wer e utilized for this study: 1. Automated exposure control 2. Adjustment of the mA and/or kV according to patient size 3. Use of iterative reconstruction technique FINDINGS: There is no evidence of hemorrhage, mass or extra-axial fluid collection. Tucker-white differentiation is maintained with no evidence of edema. Subcortical, diffuse periventricu lar as well as deep white matter hypoattenuation likely changes of chronic small vessel disease. There is no mass effect or shift of the intracranial structures. The ventricles and cerebral sulci are prominent for the patients stated age consistent with generaliz ed cerebral volume loss. The cerebellum and brainstem are unremarkable. The calvarium demonstrates no evidence of fracture or focal lesion. Calcifications basal ganglia. There is normal aeration of the visualized paranasal sinuses and mastoid air cells. The visualized portions of the orbits are normal. Atherosclerotic calcifications of the intracranial internal carotid and vertebral arteries is seen. IMPRESSION: 1. No evidence for acute intracranial process. 2. White matter changes likely chronic small vessel disease. Findings discussed with PAREDEP STERN MD at 11/17/2021 4:31 PM. FOR INTERNAL CODING PURPOSES RESULT CODE: (C) Electronically signed by: Clark Julien MD (11/17/2021 4:34 PM) [id number]
--- NOTE | 2021-11-17 16:50 | RAD ---
EXAMINATION: XR CHEST 1V CLINICAL HISTORY: Stroke. EXAM DATE/TIME: 11/17/2021 4:44 PM COMPARISON: 11/09/2021 FINDINGS: Lines, Tubes, and Devices: None. Cardiomediastinal Silhouette: Normal heart size. Aortic atherosclerotic calcification. Lungs and Pleura: Pulmonary hypoexpansion with mild bibasilar subsegmental atelectasis. Diffuse inter stitial prominence, similar to prior study and likely chronic. No evidence of focal airspace consolid ation or pleural effusion. Bones and Soft Tissues: No acute osseous abnormality. Opacified renal collecting systems related to r ecent administration of intravenous contrast. IMPRESSION: Mild bibasilar subsegmental atelectasis, otherwise no of acute cardiopulmonary abnormality or signifi cant interval change. Electronically signed by: Neymar Almeida DO (11/17/2021 4:47 PM) [facility]
--- NOTE | 2021-11-17 17:03 | PHYS DOC ---
Past History Past Medical History: CVA, Dementia, High Cholesterol, Hypertension, Hypothyroid, TIA, UTI (PARDEEP STERN MD) Past Surgical History: Tubal ligation (PARDEEP STERN MD) Alcohol Use: None Drug Use: None (PARDEEP STERN MD) General Adult EDM: Chief Complaint: NEURO SYMPTOMS/DEFICITS HPI: HPI: Patient is a history provided by EMS due to patient's history of dementia. Patient was found slumped over on the toilet 25 minutes ago. Family had noted that she was slumped on her left side against the wall. Patient had vomiting and left sided facial droop was noted. Patient has a history of several TIAs in the past. Patient was initially unresponsive when family arrived, is currently a GCS of 14 due to confusion likely related to dementia. Family said told EMS that patient was having tremor like shaking but moving all extremities. History provided by daughter, who was not the one on scene but spoke with her other sister who is there. He said patient was in the tub and slumped over on the side to her left. They had noted her eyes rolled back and shaking of all extremities. Patient then had an episode of worsening confusion before returning to baseline, had 1 episode of emesis. Daughter states that she has been having these episodes for the past month. Has been having 1 to 3/week. She is taking aspirin and Plavix has been compliant on medications (PARDEEP STERN MD) Review of Systems: Review of Systems: All other systems within normal limits except for as noted in the HPI (PARDEEP STERN MD) Current Medications: Current Meds: Current Medications Medications (Trade) Dose Ordered Sig/Kevin Start Time Stop Time Status Last Admin Dose Admin Iohexol (Omnipaque 350 Mg/ml) 100 ml 1X ONCE 11/17/21 16:30 11/17/21 16:31 DC (PARDEEP STERN MD) Allergies: Allergies: Allergies Coded Allergies Type Severity Reaction Last Updated Verified Penicillins Allergy Intermediate 11/17/21 Yes (PARDEEP STERN MD) Physical Exam: PE: Constitutional: Well developed, well nourished, no acute distress, non-toxic appearance. [] HENT: Normocephalic, atraumatic, bilateral external ears normal, nose normal. [] Eyes: PERRLA, conjunctiva normal, no discharge. [] Neck: No rigidity, supple, no stridor. [] Cardiovascular: Regular rate and rhythm, brisk cap refill [] Lungs & Thorax: Non labored symmetric respirations, no tachypnea or respiratory distress [] Abdomen: Soft, nondistended. Skin: Warm, dry, no erythema, no rash. [] Back: Unremarkable Extremities: No deformities, range of motion grossly intact, no lower extremity edema [] Neurologic: Alert and oriented to self, place. Slight downward sloping of left mouth, no other focal deficits noted on exam Psychologic: Affect normal, judgement normal, mood normal. [] (PARDEEP STERN MD) EKG: EKG: Sinus rhythm, heart rate was 75, normal axis, no STEMI [] (PARDEEP STERN MD) Radiology/Procedures: Radiology/Procedures: [place] [address] IMAGING REPORT Signed PATIENT: MARBIN GUTIERREZ LACCOUNT: [id number] : 1940 LOCATION: ER AGE: 81 SEX: F EXAM STATUS: REG ER ORD. PHYSICIAN: PARDEEP STERN MD REASON: stroke, left face droop PROCEDURE: CT ANGIOGRAPHY HEAD AND NECK Exam: CTA head and neck INDICATION: Stroke, left facial injury TECHNIQUE: Sequential axial images through the head and neck obtained following the administration of 100 mL of Isovue-370 IV contrast. Sagittal and coronal reformatted images were reconstructed from the axial data and reviewed. Exposure: One or more of the following in the visualized dose reduction techniques were utilized for this examination: 1. Automated exposure control 2. Adjustment of the MA and/or KV according to patient size 3. Use of iterative of reconstructive technique Comparisons: None FINDINGS: CTA NECK: Visualized portions of thoracic aorta are unremarkable. Standard three-vessel aortic arch anatomy. Right common carotid artery is patent without evidence of stenosis, occlusion or aneurysm. Minimal plaque at the origin of the right internal carotid artery without significant stenosis. Left common carotid artery is patent without evidence of stenosis, occlusion or aneurysm. Mild plaque at the origin of the left internal carotid artery causing less than 50% stenosis. Right vertebral artery is patent to basilar confluence without evidence of stenosis, occlusion or aneurysm. Left vertebral artery is patent basal confluence without evidence of stenosis, occlusion or aneurysm. Visualized paraspinal soft tissues are unremarkable. CTA HEAD: Minimal calcified plaque cavernous segment of the right internal carotid artery without significant stenosis. Right MCA is patent. Right BOBO is patent. Minimal calcified plaque cavernous segment left internal carotid artery without significant stenosis. Left MCA is patent. Left BOBO is patent. Basilar artery is patent without evidence of stenosis, occlusion or aneurysm. comber fixer are patent bilaterally. IMPRESSION: 1. No large vessel occlusion. 2. Mild plaque at the origin of the internal carotid arteries bilaterally greater on the left with less than 50% stenosis. 3. Minimal calcified plaque at the cavernous segment of the internal carotid arteries bilaterally without significant stenosis. FOR INTERNAL CODING PURPOSES Critical result: Findings discussed with PARDEEP STERN MD at 11/17/2021 4:58 PM. RESULT CODE: (C) Electronically signed by: Mami Kaiser MD (11/17/2021 5:11 PM) [facility] DICTATED AND SIGNED BY: MAMI KAISER MD DATE: 11/17/211655 CC: PARDEEP STERN MD; MARIANO [place] ~ [place] [address] IMAGING REPORT Signed PATIENT: MARBIN GUTIERREZ LACCOUNT: [id number] : 1940 LOCATION: ER AGE: 81 SEX: F EXAM STATUS: REG ER ORD. PHYSICIAN: PARDEEP STERN MD REASON: stroke PROCEDURE: CT CODE STROKE HEAD WO EXAM: CT Head without IV contrast CLINICAL HISTORY: Reason: stroke / Spl. Instructions: / History: COMPARISON: None. TECHNIQUE: Routine CT of the head without contrast. PQRS compliance statement - One or more of the following individualized dose reduction techniques were utilized for this study: 1. Automated exposure control 2. Adjustment of the mA and/or kV according to patient size 3. Use of iterative reconstruction technique FINDINGS: There is no evidence of hemorrhage, mass or extra-axial fluid collection. Tucker-white differentiation is maintained with no evidence of edema. Subcortical, diffuse periventricular as well as deep white matter hypoattenuation likely changes of chronic small vessel disease. There is no mass effect or shift of the intracranial structures. The ventricles and cerebral sulci are prominent for the patients stated age consistent with generalized cerebral volume loss. The cerebellum and brainstem are unremarkable. The calvarium demonstrates no evidence of fracture or focal lesion. Calcifications basal ganglia. There is normal aeration of the visualized paranasal sinuses and mastoid air cells. The visualized portions of the orbits are normal. Atherosclerotic calcifications of the intracranial internal carotid and vertebral arteries is seen. IMPRESSION: 1. No evidence for acute intracranial process. 2. White matter changes likely chronic small vessel disease. Findings discussed with PARDEEP STERN MD at 11/17/2021 4:31 PM. FOR INTERNAL CODING PURPOSES RESULT CODE: (C) Electronically signed by: Clark Mccurdy MD (11/17/2021 4:34 PM) [id number] DICTATED AND SIGNED BY: CLARK MCCURDY MD DATE: 11/17/21 1630 CC: [place] [address] IMAGING REPORT Signed PATIENT: MARBIN GUTIERREZ LACCOUNT: [id number] : 1940 LOCATION: ER AGE: 81 SEX: F EXAM STATUS: REG ER ORD. PHYSICIAN: PARDEEP STERN MD REASON: stroke PROCEDURE: PORTABLE CHEST 1V EXAMINATION: XR CHEST 1V CLINICAL HISTORY: Stroke. EXAM DATE/TIME: 11/17/2021 4:44 PM COMPARISON: 11/09/2021 FINDINGS: Lines, Tubes, and Devices: None. Cardiomediastinal Silhouette: Normal heart size. Aortic atherosclerotic calcification. Lungs and Pleura: Pulmonary hypoexpansion with mild bibasilar subsegmental atelectasis. Diffuse interstitial prominence, similar to prior study and likely chronic. No evidence of focal airspace consolidation or pleural effusion. Bones and Soft Tissues: No acute osseous abnormality. Opacified renal collecting systems related to recent administration of intravenous contrast. IMPRESSION: Mild bibasilar subsegmental atelectasis, otherwise no of acute cardiopulmonary abnormality or significant interval change. Electronically signed by: Neymar Quintanilla DO (11/17/2021 4:47 PM) [facility] DICTATED AND SIGNED BY: NEYMAR QUINTANILLA DO DATE: 11/17/211644 CC: PARDEEP STERN MD; MARIANO GOETZ ~ PARDEEP BAZZI MD; MARIANO GOETZ ~ [] (PARDEEP STERN MD) Heart Score: C/O Chest Pain: No HEART Score for Chest Pain: HEART Score for Chest Pain Response (Comments) Value History Slighlty/Non-Suspicious 0 ECG Nonspecific Repolarizatio 1 Age > 65 2 Risk Factors 1 or 2 Risk Factors 1 Total 4 Risk Factors: Risk Factors: DM, Current or recent (<one month) smoker, HTN, HLP, family history of CAD, obesity. Risk Scores: Score 0 - 3: 2.5% MACE over next 6 weeks - Discharge Home Score 4 - 6: 20.3% MACE over next 6 weeks - Admit for Clinical Observation Score 7 - 10: 72.7% MACE over next 6 weeks - Early Invasive Strategies (PARDEEP STERN MD) Course & Med Decision Making: Course & Med Decision Making No acute findings on CT per radiologist, recommend the patient get benefit from MRI. Discussed further work-up with patient's daughter for TIA versus epilepsy, he agreed to transfer to [place]. At signout she is still pending labs. Facial droop resolved prior to shift change, daughter agrees that her face looks back to normal. No mouth droop with smile. (PARDEEP STERN MD) Course & Med Decision Making Patient care handed off to me at checkout pending labs and placement. Patient awake alert and oriented no acute distress. Vital signs not concerning. Patient able to take p.o. CTA of the head and neck, CT of the head and chest x- ray nonconcerning. Patient with no episodes here in the ED. Patient history suggestive of TIA versus seizure on differential diagnosis. Discussed findings with family and recommended admission for continued evaluation and treatment, neurology consult and probable EEG and possible MRI depending on what neurologist wants. Family grateful, verbalized understanding and agreed with plan of transfer. (KAMERON CEBALLOS MD) Dragon Disclaimer: Dragon Disclaimer: This electronic medical record was generated, in whole or in part, using a voice recognition dictation system. (PARDEEP STERN MD) Departure Departure: Impression: Primary Impression: Syncope Additional Impression: Tremor Disposition: 02 SHORT TERM HOSPITAL Condition: STABLE Referrals: MARIANO GOETZ (PCP) PARDEEP STERN MD Nov 17, 2021 17:03 KAMERON CEBALLOS MD Nov 17, 2021 20:46
--- NOTE | 2021-11-17 17:13 | RAD ---
Exam: CTA head and neck INDICATION: Stroke, left facial injury TECHNIQUE: Sequential axial images through the head and neck obtained following the administration of 100 mL of Isovue-370 IV contrast. Sagittal and coronal reformatted images were reconstructed from th e axial data and reviewed. Exposure: One or more of the following in the visualized dose reduction techniques were utilized for this examination: 1. Automated exposure control 2. Adjustment of the MA and/or KV according to patient size 3. Use of iterative of reconstructive technique Comparisons: None FINDINGS: CTA NECK: Visualized portions of thoracic aorta are unremarkable. Standard three-vessel aortic arch anatomy. Right common carotid artery is patent without evidence of stenosis, occlusion or aneurysm. Minimal pl aque at the origin of the right internal carotid artery without significant stenosis. Left common carotid artery is patent without evidence of stenosis, occlusion or aneurysm. Mild plaque at the origin of the left internal carotid artery causing less than 50% stenosis. Right vertebral artery is patent to basilar confluence without evidence of stenosis, occlusion or ane urysm. Left vertebral artery is patent basal confluence without evidence of stenosis, occlusion or aneurysm. Visualized paraspinal soft tissues are unremarkable. CTA HEAD: Minimal calcified plaque cavernous segment of the right internal carotid artery without significant s tenosis. Right MCA is patent. Right BOBO is patent. Minimal calcified plaque cavernous segment left internal carotid artery without significant stenosis. Left MCA is patent. Left BOBO is patent. Basilar artery is patent without evidence of stenosis, occlusion or aneurysm. food and beverage attendant are patent bilater ally. IMPRESSION: 1. No large vessel occlusion. 2. Mild plaque at the origin of the internal carotid arteries bilaterally greater on the left with l ess than 50% stenosis. 3. Minimal calcified plaque at the cavernous segment of the internal carotid arteries bilaterally wi thout significant stenosis. FOR INTERNAL CODING PURPOSES Critical result: Findings discussed with PARDEEP STERN MD at 11/17/2021 4:58 PM. RESULT CODE: (C) Electronically signed by: Mami Humphrey MD (11/17/2021 5:11 PM) [facility]
[2021-11-17 18:12] LABS: BASO % 0 % (0-3); EOS # 0.1 x10^3/uL (0.0-0.7); EOS % 1 % (0-3); HEMATOCRIT 32.8 % (36.0-47.0); HEMOGLOBIN 10.8 g/dL (12.0-15.5); LYMPH # 0.5 x10^3/uL (1.0-4.8); LYMPH % 5 % (24-48); MEAN CORPUSCULAR HEMOGLOBIN 35 pg (25-35); MEAN CORPUSCULAR HGB CONC 33 g/dL (31-37); MEAN CORPUSCULAR VOLUME 107 fL (79-100); MONO # 0.5 x10^3/uL (0.0-1.1); MONO % 5 % (0-9); NEUT # 9.3 x10^3uL (1.8-7.7); NEUT % 89 % (31-73); PLATELET COUNT 378 x10^3/uL (140-400); RED BLOOD COUNT 3.07 x10^6/uL (3.50-5.40); RED CELL DISTRIBUTION WIDTH 15.3 % (11.5-14.5); WHITE BLOOD COUNT 10.5 x10^3/uL (4.0-11.0)
[2021-11-17 19:38] LABS: CALCIUM 8.6 mg/dL (8.5-10.1); GFR 53.5; POTASSIUM 3.8 mmol/L (3.5-5.1)
[2021-11-17 19:45] LABS: ALBUMIN 3.8 g/dL (3.4-5.0); ALBUMIN/GLOBULIN RATIO 0.9 (1.0-1.7); MAGNESIUM 2.3 mg/dL (1.8-2.4); TOTAL BILIRUBIN 0.2 mg/dL (0.2-1.0); TOTAL PROTEIN 7.9 g/dL (6.4-8.2)
[2021-11-17 21:43] LABS: BACTERIA,URINE FEW /HPF (0-FEW); CLARITY,URINE HAZY; COLOR,URINE STRAW; GLUCOSE,URINE NEG (NEG); NITRITE,URINE NEG (NEG); SQUAMOUS EPITHELIAL CELL,UR FEW /LPF; UROBILINOGEN,URINE 0.2 mg/dL (0.2 mg/dL); WBC,URINE 0 /HPF (0-4)
[2021-11-17 23:16] VITALS: BP 144/69
[2021-11-18] MEDS ORDERED: levETIRAcetam 500 MG TABLET PO SCH (09:00)
[2021-11-18] MEDS ORDERED: levETIRAcetam 250 MG TABLET PO SCH (09:00)
--- NOTE | 2021-11-18 21:55 | EKG ---
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
== END 2021-11-17 23:45 | disposition short-term general hospital (02) ==
LOC: ER 16:17
DX: R55 Syncope and collapse (principal); R25.1 Tremor, unspecified; R11.10 Vomiting, unspecified; R29.810 Facial weakness; F03.90 Unspecified dementia, unspecified severity, without behavioral disturbance, psychotic disturbance, mood disturbance, and anxiety; E78.00 Pure hypercholesterolemia, unspecified; I10 Essential (primary) hypertension; E03.9 Hypothyroidism, unspecified; Z86.73 Personal history of transient ischemic attack (TIA), and cerebral infarction without residual deficits; Z87.440 Personal history of urinary (tract) infections; Z88.0 Allergy status to penicillin
CPT/HCPCS: 36415; 70450; 70496; 70498; 71045; 80053; 81001; 83735; 84443; 84484; 85025; 85610; 85730; 93005; 99285

== ENCOUNTER 2022-01-02 15:01 | Emergency (ER) | payer OTHER, MEDICAID ==
[~2022-01-02] VITALS: Ht 152.4 cm; Wt 54.5 kg
[2022-01-02 15:15] VITALS: BP 149/72
--- NOTE | 2022-01-02 15:25 | PHYS DOC ---
Past History Past Medical History: CVA, Dementia, High Cholesterol, Hypertension, Hypothyroid, TIA, UTI Past Surgical History: Tubal ligation Alcohol Use: None Drug Use: None General Adult EDM: Chief Complaint: SYNCOPE HPI: HPI: 81-year-old female presents via EMS for syncopal episode. The patient was at home with home health nurse when she cannot slumped over and seem to go unconscious. Caregiver thought that she may have had a rhythmic movements such as seizure. The patient was recently diagnosed with seizures and was placed on antiseizure medication. The patient has no complaints to me. She is back at her baseline GCS of 14. She has a history of dementia. Denies fever or chills. Review of Systems: Review of Systems: Constitutional: Denies fever or chills Eyes: Denies change in visual acuity HENT: Denies nasal congestion or sore throat Respiratory: Denies cough or shortness of breath Cardiovascular: Denies chest pain or edema GI: Denies abdominal pain, nausea, vomiting, bloody stools or diarrhea : Denies dysuria Musculoskeletal: Denies back pain or joint pain Integument: Denies rash Neurologic: Syncope. Denies headache, focal weakness or sensory changes Endocrine: Denies polyuria or polydipsia Lymphatic: Denies swollen glands Psychiatric: Denies depression or anxiety Allergies: Allergies: Allergies Coded Allergies Type Severity Reaction Last Updated Verified Penicillins Allergy Intermediate TOLERATES CEPHALOSPORINS 11/18/21 Yes Physical Exam: PE: Constitutional: Well developed, well nourished, no acute distress, non-toxic appearance. [] HENT: Normocephalic, atraumatic, bilateral external ears normal, oropharynx moist, no oral exudates, nose normal. [] Eyes: PERRLA, EOMI, conjunctiva normal, no discharge. [] Neck: Normal range of motion, no tenderness, supple, no stridor. [] Cardiovascular: Heart rate regular rhythm, no murmur [] Lungs & Thorax: Bilateral breath sounds clear to auscultation [] Abdomen: Bowel sounds normal, soft, no tenderness, no masses, no pulsatile masses. [] Skin: Warm, dry, no erythema, no rash. [] Back: No tenderness, no CVA tenderness. [] Extremities: No tenderness, no cyanosis, no clubbing, ROM intact, no edema. [] Neurologic: Alert to person and place, normal motor function, normal sensory function, no focal deficits noted. [] Psychologic: Affect normal, judgement normal, mood normal. [] Current Patient Data: Vital Signs: Vital Signs Date Time Temp Pulse Resp B/P (MAP) Pulse Ox O2 Delivery O2 Flow Rate FiO2 01/02/22 15:15 98.3 53 18 149/72 (97) 97 Room Air EKG: EKG: Sinus rhythm, rate 74, normal axis, no ST elevation or depression, prolonged QTC. [] Radiology/Procedures: Radiology/Procedures: [] Impressions: Exam: Chest one view INDICATION: Syncope TECHNIQUE: Frontal view of the chest Comparisons: 11/17/2021 FINDINGS: The cardiomediastinal silhouette and pulmonary vessels are within normal limits. The lung and pleural spaces are clear. IMPRESSION: No acute cardiopulmonary process. Electronically signed by: Maciel Kaiser MD (01/02/2022 3:45 PM) [facility] DICTATED AND SIGNED BY: MACIEL KAISER MD DATE: 01/02/22 1543 CC: ABHIJIT HENDERSON DO; MARIANO GOETZ ~ Heart Score: C/O Chest Pain: N/A Risk Factors: Risk Factors: DM, Current or recent (<one month) smoker, HTN, HLP, family history of CAD, obesity. Risk Scores: Score 0 - 3: 2.5% MACE over next 6 weeks - Discharge Home Score 4 - 6: 20.3% MACE over next 6 weeks - Admit for Clinical Observation Score 7 - 10: 72.7% MACE over next 6 weeks - Early Invasive Strategies Course & Med Decision Making: Course & Med Decision Making Pertinent Labs and Imaging studies reviewed. (See chart for details) The patient's labs are significant for an anemia but it is consistent with previous lab values. Her lactic acid is 2.3. I have advised increase fluid intake. Patient's other labs are noncontributory. Troponin is negative. Her EKG is unremarkable. She is stable for discharge at this time. [] Dragon Disclaimer: Dragon Disclaimer: This electronic medical record was generated, in whole or in part, using a voice recognition dictation system. Departure Departure: Impression: Primary Impression: Syncope Disposition: HOME / SELF CARE / HOMELESS Condition: STABLE Referrals: MARIANO GOETZ (PCP) Patient Instructions: Syncope, [id number] ABHIJIT HENDERSON DO January 02, 2022 15:25
--- NOTE | 2022-01-02 15:40 | EKG ---
[address] [address] Test Date: 2022-01-02 Test Time: 15:29:30 Pat Name: MARBIN GUTIERREZ Department: Room: Gender: [employer] Supervisor: IVET : 1940 Requested By: ABHIJIT HENDERSON Order Number: [id number] Reading MD: Mark Bailey MD Measurements Intervals [place] Rate: 74 P: 42 DC: 158 QRS: 28 QRSD: 76 T: 28 QT: 444 QTc: 493 Interpretive Statements SINUS RHYTHM PROLONGED QT Electronically Signed On 01-08-2022 9:22:08 CDT by Mark Bailey MD
--- NOTE | 2022-01-02 15:48 | RAD ---
Exam: Chest one view INDICATION: Syncope TECHNIQUE: Frontal view of the chest Comparisons: 11/17/2021 FINDINGS: The cardiomediastinal silhouette and pulmonary vessels are within normal limits. The lung and pleural spaces are clear. IMPRESSION: No acute cardiopulmonary process. Electronically signed by: Mami Humphrey MD (01/02/2022 3:45 PM) [email or web address]
[2022-01-02 16:53] LABS: BASO # 0.1 x10^3/uL (0.0-0.2); BASO % 1 % (0-3); EOS # 0.2 x10^3/uL (0.0-0.7); EOS % 4 % (0-3); HEMATOCRIT 32.4 % (36.0-47.0); HEMOGLOBIN 10.6 g/dL (12.0-15.5); LYMPH # 0.8 x10^3/uL (1.0-4.8); LYMPH % 16 % (24-48); MEAN CORPUSCULAR HEMOGLOBIN 36 pg (25-35); MEAN CORPUSCULAR HGB CONC 33 g/dL (31-37); MEAN CORPUSCULAR VOLUME 111 fL (79-100); MONO # 0.5 x10^3/uL (0.0-1.1); MONO % 10 % (0-9); NEUT # 3.4 x10^3uL (1.8-7.7); NEUT % 70 % (31-73); PLATELET COUNT 306 x10^3/uL (140-400); RED BLOOD COUNT 2.93 x10^6/uL (3.50-5.40); RED CELL DISTRIBUTION WIDTH 14.9 % (11.5-14.5); WHITE BLOOD COUNT 4.8 x10^3/uL (4.0-11.0)
[2022-01-02 17:04] LABS: ALBUMIN 3.5 g/dL (3.4-5.0); CALCIUM 8.8 mg/dL (8.5-10.1); GFR 53.5; POTASSIUM 3.7 mmol/L (3.5-5.1); TOTAL BILIRUBIN 0.2 mg/dL (0.2-1.0); TOTAL PROTEIN 7.1 g/dL (6.4-8.2)
[2022-01-02 20:48] LABS: PLT ESTIMATE ADEQUATE (ADEQUATE)
== END 2022-01-02 18:00 | disposition home or self-care (01) ==
LOC: ER 15:01
DX: R55 Syncope and collapse (principal); F03.90 Unspecified dementia, unspecified severity, without behavioral disturbance, psychotic disturbance, mood disturbance, and anxiety; E78.00 Pure hypercholesterolemia, unspecified; I10 Essential (primary) hypertension; E03.9 Hypothyroidism, unspecified; Z86.73 Personal history of transient ischemic attack (TIA), and cerebral infarction without residual deficits; Z87.440 Personal history of urinary (tract) infections; Z88.0 Allergy status to penicillin
CPT/HCPCS: 36415; 71045; 80053; 83605; 84484; 85025; 93005; 99285